=== PATIENT | male | born 1970 | race African-American/Black ===

== ENCOUNTER 2016-04-18 11:22 | Emergency (ER) | payer OTHER ==
--- NOTE | 2016-04-18 12:42 | ED ORDER SUMMARY ---
..... Patient: MARIA LUISA RAIN OrderSheet [facility] VisitID: [id number] [address] [place] [address] 46y, M Registration Date/Time: 04/18/2016 ORDER SHEET Weight: 104.3 kg (stated) Allergies: Sudafed GENERAL ORDERS: Ankle 3 or 4V Right Urgent (12:22 04/18/2016 Shoshana MANCILLA) (Ack 12:29 LTapper) (12:30 RKaruga) Splint (LE) (Right) (Air Splint) (12:39 04/18/2016 Shoshana MANCILLA) (13:27 SRoberts R.N.) MEDICATION ORDERS: Hydrocodone-APAP PO 10/650 mg (NOW, HIGH ALERT MEDICATION) (12:39 04/18/2016 Shoshana MANCILLA) (Ack 13:08 SRoberts R.N.) (Cancelled: Patient [id number] SRoberts R.N.) Toradol IM 60 mg (NOW) (12:39 04/18/2016 Shoshana MANCILLA) (Ack 13:08 SRoberts R.N.) (13:28 SRoberts R.N.) IV FLUIDS: ORDER SHEET NOTES: [Electronically signed by Olesya Sanders R.N. (13:31 04/18/2016)] [Electronically signed by Tasia Castaneda MD (11:55 04/22/2016)] [Electronically locked/signed by Olesya Sanders R.N. (13:31 04/18/2016)]
--- NOTE | 2016-04-18 12:42 | ED NURSING NOTES ---
Clinical Report - Nurses [facility] [address] [place] [address] 04/18/2016 11:23 Patient: MARIA LUISA RAIN TRIAGE Triage time 11:30. Acuity: LEVEL 3. Chief Complaint: INJURY TO RIGHT KNEE and RIGHT ANKLE. Alert. No acute distress. --11:39 Olesya Sanders R.N. 11:35 04/18/16. BP: 165/96. HR: 93. RR: 20. O2 saturation: 100%. Temp: 97 F. Pain level now: 11/21. --11:39 Olesya Sanders R.N. Weight: 104.3 kg stated. Height/Length: 77 inches Per Patient. BMI: 27.3. --11:37 Olesya Sanders R.N. Medications None. --11:33 Olesya Sanders R.N. Medication/allergy information source: the patient. --11:39 Olesya Sanders R.N. Allergies Sudafed.(vomiting) --11:33 Olesya Sanders R.N. History Arrived by private vehicle. Historian: patient. No primary care physician. This occurred (2 days). Mechanism of injury: sustained a twisting injury. Mechanism of injury: fell while running; tripped (Playing basketball, tripped over another player, twisting rt ankle. Also has a bump below the rt knee. 10 pain.). He has had trouble walking. The patient has been limping when trying to walk. ( pain). 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 PAST MEDICAL HX: Hypertension. Tetanus status: up-to-date. ( pncreatitis). SOCIAL HX: Never smoker. No alcohol use or drug use. FALL RISK ASSESSMENT: Fall risk assessment completed. No fall risk identified. NUTRITIONAL RISK ASSESSMENT: The nutritional risk assessment revealed no deficiencies. FUNCTIONAL ASSESSMENT: Functional assessment: no impairments noted. LEARNING NEEDS ASSESSMENT: The learning needs assessment revealed no barriers. SKIN INTEGRITY ASSESSMENT: Skin integrity risk assessment completed. No skin integrity risk identified. --11:39 Olesya Sanders R.N. ADDITIONAL SURGERIES: Ankle rt, hardware. --11:37 Olesya Sanders R.N. Interventions ID band on patient. To room. --11:39 Olesya Sanders R.N. PHYSICAL ASSESSMENT Ambulatory to room. GENERAL / NEURO / PSYCH: Appears in pain and anxious. EXTREMITIES: Limited ROM present. Pain with weight bearing. Right knee: tenderness and swelling. Right ankle: tenderness and swelling. SKIN: Skin is warm and dry. He has an abrasion on the right leg. --11:39 Olesya Sanders R.N. NURSING PROGRESS NOTES Cold pack applied. Extremity elevated. Two patient identifiers checked. Call light placed in reach. Side rails up x 2. Bed placed in lowest position. Brakes of bed on. Patient ready for evaluation. --11:40 Olesya Sanders R.N. 13:13 04/18/2016 Toradol (Ketorolac Tromethamine) IM 60 mg given. Given in the right deltoid. Allergies verified and confirmed 5 rights. --13:28 Olesya Sanders R.N. Large air lower extremity splint applied to right ankle by tech. Distal pulses intact, sensation intact and motor within normal limits. --13:29 Olesya Sanders R.N. 13:29 04/18/16. BP: 150/89. HR: 79. RR: 20. O2 saturation: 100%. Temp: deferred. Pain level now: 07/22. 12:49 04/18/16. BP: 148/78. HR: 73. RR: 18. O2 saturation: 100% on room air. 11:35 04/18/16. BP: 165/96. HR: 93. RR: 20. O2 saturation: 100%. Temp: 97 F. Pain level now: 11/21. --13:30 Olesya Sanders R.N. DISPOSITION / DISCHARGE Condition at departure: improved. No learning barriers present. Discharge instructions provided and reviewed with the patient. Reviewed medication(s) side effects, precautions, dosing and course information. Prescription(s) given to the patient. Activity restrictions (minimal use of injured extremity) reviewed. Patient verbalized understanding. Written instructions provided in [place]. The patient was discharged home. He left the Emergency Department ambulatory and via private vehicle. Patient driving. Medication list reviewed and validated. --13:31 Olesya Sanders R.N. 13:29 04/18/16. BP: 150/89. HR: 79. RR: 20. O2 saturation: 100%. Temp: deferred. Pain level now: 07/22. 12:49 04/18/16. BP: 148/78. HR: 73. RR: 18. O2 saturation: 100% on room air. 11:35 04/18/16. BP: 165/96. HR: 93. RR: 20. O2 saturation: 100%. Temp: 97 F. Pain level now: 11/21. --13:31 Olesya Sanders R.N. Locked/Released at 04/18/2016 13:31 by Olesya Sanders R.N.
--- NOTE | 2016-04-18 12:42 | ED CLINICAL REPORT ---
Clinical Report - Physicians/Mid Levels [facility] [address] [place] [address] 04/18/2016 11:23 Patient: MARIA LUISA RAIN Time Seen: 11:58. Arrived- By private vehicle. Historian- patient. HISTORY OF PRESENT ILLNESS Chief Complaint: ; PAIN and SWELLING IN THE RIGHT ANKLE. Modifying factors- worsened by standing and walking. Not relieved by [id number] analgesics. This started 2 days ago and is still present. Severity is described as being moderate. The quality is noted to be "pain". Symptoms located in the area of the right ankle. The patient has had swelling, but not had redness. He has had difficulty walking. No bladder dysfunction, bowel dysfunction, sensory loss or motor loss. ( Pt states he was playing basketball when the injury occurred.). Patient notes an injury. Mechanism of injury- (twisted). Similar symptoms previously: None. Recent medical care: Not recently seen/assessed. REVIEW OF SYSTEMS No cough, chest pain, difficulty breathing, fever or skin rash. No enlarged lymph nodes, neck pain, back pain, headache or blurred vision. No sore throat, abdominal pain, vomiting, diarrhea or black stools. No difficulty with urination or bloody stools. All systems otherwise negative, except as recorded above. PAST HISTORY Problems: Hypertension. Additional Surgeries: Ankle rt, hardware. Medications: None. Allergies: Sudafed.(vomiting). SOCIAL HISTORY Never smoker. No alcohol use or drug use. ADDITIONAL NOTES The nursing notes have been reviewed. PHYSICAL EXAM Vital Signs: 04/18/2016 11:35 BP: 165/96. HR: 93. RR: 20. O2 saturation: 100%. Temp: 97 F. Pain level now: 8/10. Have been reviewed. Appearance: Alert. Oriented X3. No acute distress. Eyes: Pupils equal, round and reactive to light. ENT: Nose normal. Neck: Normal inspection. CVS: Pulses normal. Strong peripheral pulses. Respiratory: No respiratory distress. Back: ROM normal. Skin: Skin intact. Skin warm and dry. Normal skin color. Normal skin turgor. Extremities: Right ankle: mild tenderness and swelling localized to the lateral ligaments and malleolus. Limited ROM secondary to pain (diminished inversion and eversion). Neurovascular intact distally. No ligamentous laxity present. No joint effusion. No erythema, laceration, abrasion, ecchymosis or puncture wound. No foreign body or deformity. Lower extremities exhibit normal ROM. Extremities otherwise negative. Neuro: Oriented X 3. No motor deficit. No sensory deficit. LABS, X-RAYS, AND EKG Rt Ankle X-ray: No fracture. Normal alignment. No bony lesion, air in the soft tissue or foreign body. Soft tissues normal. Joint spaces normal. Views: 3 view ankle series. Technique: good. The X-rays were independently viewed by me, interpreted by the radiologist and contemporaneously by me and discussed with the radiologist. Prior films were not available for comparison. Pulse Oximetry: 04/18/2016 11:35 O2 saturation: 100%. (FIO2 - room air). Interpretation: normal. PROGRESS AND PROCEDURES Splint Application: Velcro air splint applied to right ankle and lower leg. Splint applied by erick with direct supervision by me and the ED physician. Reassessed extremity following splint application. Neurovascular intact. Course of Care: PT's x-ray showed no new fx. He was fitted for an airsplint, but declined crutches. Pt was given a dose of Toradol, but hydrocodone was canceled, due to pt driving. Patient counseled in person regarding the patient's stable condition, test results, diagnosis and need for follow-up. Concerns were addressed. Old medical records reviewed. Disposition: Discharged. Condition: stable. CLINICAL IMPRESSION Sprain of the talofibular ligament of the right ankle. INSTRUCTIONS Apply ice for 20 minutes three times a day as needed and until better. Don't apply ice directly to skin and don't use while asleep. Elevate affected areas above chest level. Wear air splint as needed and until better. You may walk and bear weight as tolerated. (Your x-ray series shows changes to your bones, consistent with your previous injuries, but no new breaks.). Warnings: SEDATIVE MEDICATION: You were given sedative medication during your visit. Do not drive or operate dangerous machinery for 6 hours. GENERAL WARNINGS: Return or contact your physician immediately if your condition worsens or changes unexpectedly, if not improving as expected, or if other problems arise. Prescription Medications: Hydrocodone/APAP 5mg / 325mg: take 1-2 orally every 6 hours as needed for pain. Dispense twelve (12). No refill. Ibuprofen 800 mg tablets: take 1 tablet orally every 8 hours as needed for pain. Dispense twenty (20). No refill. Follow-up: Follow up with your doctor in two weeks if not better. Understanding of the discharge instructions verbalized by patient. (Electronically signed by Tasia Castaneda MD 04/22/2016 11:55)
--- NOTE | 2016-04-18 12:42 | ED NURSING NOTES ---
Clinical Report - Nurses [facility] [address] [place] [address] 04/18/2016 11:23 Patient: MARIA LUISA RAIN TRIAGE Triage time 11:30. Acuity: LEVEL 3. Chief Complaint: INJURY TO RIGHT KNEE and RIGHT ANKLE. Alert. No acute distress. --11:39 Olesya Sanders R.N. 11:35 04/18/16. BP: 165/96. HR: 93. RR: 20. O2 saturation: 100%. Temp: 97 F. Pain level now: 11/21. --11:39 Olesya Sanders R.N. Weight: 104.3 kg stated. Height/Length: 77 inches Per Patient. BMI: 27.3. --11:37 Olesya Sanders R.N. Medications None. --11:33 Olesya Sanders R.N. Medication/allergy information source: the patient. --11:39 Olesya Sanders R.N. Allergies Sudafed.(vomiting) --11:33 Olesya Sanders R.N. History Arrived by private vehicle. Historian: patient. No primary care physician. This occurred (2 days). Mechanism of injury: sustained a twisting injury. Mechanism of injury: fell while running; tripped (Playing basketball, tripped over another player, twisting rt ankle. Also has a bump below the rt knee. 10 pain.). He has had trouble walking. The patient has been limping when trying to walk. ( pain). 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 PAST MEDICAL HX: Hypertension. Tetanus status: up-to-date. ( pncreatitis). SOCIAL HX: Never smoker. No alcohol use or drug use. FALL RISK ASSESSMENT: Fall risk assessment completed. No fall risk identified. NUTRITIONAL RISK ASSESSMENT: The nutritional risk assessment revealed no deficiencies. FUNCTIONAL ASSESSMENT: Functional assessment: no impairments noted. LEARNING NEEDS ASSESSMENT: The learning needs assessment revealed no barriers. SKIN INTEGRITY ASSESSMENT: Skin integrity risk assessment completed. No skin integrity risk identified. --11:39 Olesya Sanders R.N. ADDITIONAL SURGERIES: Ankle rt, hardware. --11:37 Olesya Sanders R.N. Interventions ID band on patient. To room. --11:39 Olesya Sanders R.N. PHYSICAL ASSESSMENT Ambulatory to room. GENERAL / NEURO / PSYCH: Appears in pain and anxious. EXTREMITIES: Limited ROM present. Pain with weight bearing. Right knee: tenderness and swelling. Right ankle: tenderness and swelling. SKIN: Skin is warm and dry. He has an abrasion on the right leg. --11:39 Olesya Sanders R.N. NURSING PROGRESS NOTES Cold pack applied. Extremity elevated. Two patient identifiers checked. Call light placed in reach. Side rails up x 2. Bed placed in lowest position. Brakes of bed on. Patient ready for evaluation. --11:40 Olesya Sanders R.N. 13:13 04/18/2016 Toradol (Ketorolac Tromethamine) IM 60 mg given. Given in the right deltoid. Allergies verified and confirmed 5 rights. --13:28 Olesya Sanders R.N. Large air lower extremity splint applied to right ankle by tech. Distal pulses intact, sensation intact and motor within normal limits. --13:29 Olesya Sanders R.N. 13:29 04/18/16. BP: 150/89. HR: 79. RR: 20. O2 saturation: 100%. Temp: deferred. Pain level now: 07/22. 12:49 04/18/16. BP: 148/78. HR: 73. RR: 18. O2 saturation: 100% on room air. 11:35 04/18/16. BP: 165/96. HR: 93. RR: 20. O2 saturation: 100%. Temp: 97 F. Pain level now: 11/21. --13:30 Olesya Sanders R.N. DISPOSITION / DISCHARGE Condition at departure: improved. No learning barriers present. Discharge instructions provided and reviewed with the patient. Reviewed medication(s) side effects, precautions, dosing and course information. Prescription(s) given to the patient. Activity restrictions (minimal use of injured extremity) reviewed. Patient verbalized understanding. Written instructions provided in Maltese. The patient was discharged home. He left the Emergency Department ambulatory and via private vehicle. Patient driving. Medication list reviewed and validated. --13:31 Olesya Sanders R.N. 13:29 04/18/16. BP: 150/89. HR: 79. RR: 20. O2 saturation: 100%. Temp: deferred. Pain level now: 07/22. 12:49 04/18/16. BP: 148/78. HR: 73. RR: 18. O2 saturation: 100% on room air. 11:35 04/18/16. BP: 165/96. HR: 93. RR: 20. O2 saturation: 100%. Temp: 97 F. Pain level now: 11/21. --13:31 Olesya Sanders R.N. Locked/Released at 04/18/2016 13:31 by Olesya Sanders R.N.
--- NOTE | 2016-04-18 12:42 | ED ORDER SUMMARY ---
..... Patient: MARIA LUISA RAIN OrderSheet [facility] VisitID: [id number] [address] [place] [address] 46y, M Registration Date/Time: 04/18/2016 ORDER SHEET Weight: 104.3 kg (stated) Allergies: Sudafed GENERAL ORDERS: Ankle 3 or 4V Right Urgent (12:22 04/18/2016 Shoshana MANCILLA) (Ack 12:29 LTapper) (12:30 RKaruga) Splint (LE) (Right) (Air Splint) (12:39 04/18/2016 Shoshana MANCILLA) (13:27 SRoberts R.N.) MEDICATION ORDERS: Hydrocodone-APAP PO 10/650 mg (NOW, HIGH ALERT MEDICATION) (12:39 04/18/2016 Shoshana MANCILLA) (Ack 13:08 SRoberts R.N.) (Cancelled: Patient Yjezzse01:28 SRoberts R.N.) Toradol IM 60 mg (NOW) (12:39 04/18/2016 Shoshana MANCILLA) (Ack 13:08 SRoberts R.N.) (13:28 SRoberts R.N.) IV FLUIDS: ORDER SHEET NOTES: [Electronically signed by Olesya Sanders R.N. (13:31 04/18/2016)] [Electronically signed by Tasia Castaneda MD (11:55 04/22/2016)] [Electronically locked/signed by Olesya Sanders R.N. (13:31 04/18/2016)]
--- NOTE | 2016-04-18 12:52 | DIAGNOSTIC IMAGING REPORT ---
PROCEDURE: XR ANKLE 3 OR 4 VIEWS - RIGHT INDICATION: TRAUMA/INJURY TECHNIQUE: Four views. COMPARISON: None. FINDINGS: No acute fracture or dislocation. Side plate and multiple screws overlie the distal fibula without visible fracture line. Old avulsion fracture of the tip of the fibula and medial malleolus. There are degenerative changes of the tibiotalar joint. Moderate plantar calcaneal spur. Soft tissues are unremarkable pill IMPRESSION: 1. No acute changes 2. Distal right fibula ORIF 3. Old avulsion fracture of the medial malleolus and tip of the fibula 4. Tibiotalar joint degenerative changes
--- NOTE | 2016-04-22 11:55 | ED MAR SUMMARY ---
..... Medication Administration Record [facility] [address] [place] [address] Patient: MARIA LUISA RAIN Visit ID: [id number] 46y, M Weight: 104.3 kg Height/Length: 77 in BMI: 27.3 ALLERGIES: Sudafed Given 13:13 04/18/2016 Olesya Sanders R.N. Medication Administered: TORADOL [IM] (KETOROLAC TROMETHAMINE), Dose: 60 mg IM. Medication Ordered: Toradol IM 60 mg (NOW).
--- NOTE | 2016-04-22 11:55 | ED MED RECONCILIATION SUMMARY ---
Patient: MARIA LUISA RAIN Medication Reconciliation Report [facility] VisitID: [id number] [address] [place] [address] 46y, M Registration Date/Time: 04/18/2016 Weight: 104.3 kg Height/Length: 77 in. BMI: 27.3 ALLERGIES: Sudafed The patient's Home Medications are listed below: NONE. The source(s) of the original Home Medication information: patient The following Medications were given to the patient in the Emergency Department: Toradol [IM] IM 60 mg, administered: 04/18/2016 1:13:00 PM The following Medications were prescribed to the patient: Hydrocodone/APAP 5mg / 325mg: take 1-2 orally every 6 hours as needed for pain. Dispense twelve (12). No refill. -- Tasia Castaneda MD Ibuprofen 800 mg tablets: take 1 tablet orally every 8 hours as needed for pain. Dispense twenty (20). No refill. -- Tasia Castaneda MD
--- NOTE | 2016-04-22 11:55 | ED MED RECONCILIATION SUMMARY ---
Patient: MARIA LUISA RAIN Medication Reconciliation Report [facility] VisitID: [id number] [address] [place] [address] 46y, M Registration Date/Time: 04/18/2016 Weight: 104.3 kg Height/Length: 77 in. BMI: 27.3 ALLERGIES: Sudafed The patient's Home Medications are listed below: NONE. The source(s) of the original Home Medication information: patient The following Medications were given to the patient in the Emergency Department: Toradol [IM] IM 60 mg, administered: 04/18/2016 1:13:00 PM The following Medications were prescribed to the patient: Hydrocodone/APAP 5mg / 325mg: take 1-2 orally every 6 hours as needed for pain. Dispense twelve (12). No refill. -- Tasia Castaneda MD Ibuprofen 800 mg tablets: take 1 tablet orally every 8 hours as needed for pain. Dispense twenty (20). No refill. -- Tasia Castaneda MD
--- NOTE | 2016-04-22 11:55 | ED MAR SUMMARY ---
..... Medication Administration Record [facility] [address] [place] [address] Patient: MARIA LUISA RAIN Visit ID: [id number] 46y, M Weight: 104.3 kg Height/Length: 77 in BMI: 27.3 ALLERGIES: Sudafed Given 13:13 04/18/2016 Olesya Sanders R.N. Medication Administered: TORADOL [IM] (KETOROLAC TROMETHAMINE), Dose: 60 mg IM. Medication Ordered: Toradol IM 60 mg (NOW).
--- NOTE | 2016-04-22 11:55 | ED DISCHARGE INSTRUCTIONS ---
Patient: MARIA LUISA RAIN General Instructions [facility] VisitID: [id number] [place] [address] 46y, M Registration Date/Time: 04/18/2016 Sprain of the talofibular ligament of the right ankle. INSTRUCTIONS Apply ice for 20 minutes three times a day as needed and until better. Don't apply ice directly to skin and don't use while asleep. Elevate affected areas above chest level. Wear air splint as needed and until better. You may walk and bear weight as tolerated. (Your x-ray series shows changes to your bones, consistent with your previous injuries, but no new breaks.). Warnings: SEDATIVE MEDICATION: You were given sedative medication during your visit. Do not drive or operate dangerous machinery for 6 hours. GENERAL WARNINGS: Return or contact your physician immediately if your condition worsens or changes unexpectedly, if not improving as expected, or if other problems arise. Prescription Medications: Hydrocodone/APAP 5mg / 325mg: take 1-2 orally every 6 hours as needed for pain. Dispense twelve (12). No refill. Ibuprofen 800 mg tablets: take 1 tablet orally every 8 hours as needed for pain. Dispense twenty (20). No refill. Follow-up: Follow up with your doctor in two weeks if not better. Understanding of the discharge instructions verbalized by patient. ADDITIONAL INFORMATION Sprain, Ankle,With X-Ray A sprain is an injury to the ligaments or capsule that holds a joint together. There are no broken bones. Most sprains take from four to six weeks to heal. If the ligament is completely torn (severe sprain), it can take several months to recover. Mild to moderate sprains may be treated with an elastic wrap or an in-shoe splint to provide support and prevent re-injury. A mild sprain may not require any additional support. A severe sprain may require surgery to repair. Home care The following guidelines will help you care for your injury at home: Stay off the injured leg as much as possible until you can walk on it without pain. If you have a lot of pain with walking, crutches or a walker may be prescribed. (These can be rented or purchased at many pharmacies and surgical or orthopedic supply stores). Follow your doctor's advice regarding when to begin bearing weight on that leg. Keep your leg elevated to reduce pain and swelling. When sleeping, place a pillow under the injured leg. When sitting, support the injured leg so it is level with your waist. This is very important during the first 48 hours. Apply an ice pack (ice cubes in a plastic bag, wrapped in a towel) over the injured area for 20 minutes every 12 hours the first day. You can place the ice pack directly over the splint/cast. If you were given a boot, open it to apply the ice pack. Continue with ice packs 34 times a day for the next two days, then as needed for the relief of pain and swelling. You may use acetaminophen or ibuprofen to control pain, unless another pain medicine was prescribed. If you have chronic liver or kidney disease or ever had a stomach ulcer or GI bleeding, talk with your doctor before using these medicines. You may return to sports after healing, when you can run without pain. A sprained ankle is at risk for re-injury during the first six weeks. During that time, protect your ankle with an in-shoe splint that prevents tilting of your ankle from side to side. This is very important if you do active work or play sports during that time. Follow-up care Any X-rays you had today dont show any broken bones, breaks, or fractures. Sometimes fractures dont show up on the first X-ray. Bruises and sprains can sometimes hurt as much as a fracture. These injuries can take time to heal completely. If your symptoms dont improve or they get worse, talk with your doctor. You may need a repeat X-ray. When to seek medical care Get prompt medical attention if any of the following occur: The plaster cast or splint gets wet or soft The fiberglass cast or splint gets wet and does not dry for 24 hours Pain or swelling increases, or redness appears Toes become cold, blue, numb or tingly Re-injure your ankle Aircast Traditional splints and casts for the foot and ankle protect the injury by preventing movement at the joints. However, many injuries heal better and faster if the injured joint can be moved, while protected at the same time. This is the reason for using an Aircast. There are two common type of AirCasts: 1) Air-Stirrup ankle splint This is often used to treat ankle sprains. It contains padded air cells in a plastic frame that fits into your shoe. This allows you to walk while preventing the ankle joint from rolling in or out causing re-injury. Ankle sprains can take 4-6 weeks to heal. Persons with severe injuries or over age 60 may require more time to heal. During that time, you are prone to re-injury by suddenly twisting your ankle again while the ligaments are still weak. When treating a sprain, the Air-Stirrup splint should be worn whenever walking for at least four weeks, or as long as you continue to have ankle pain. You should continue to wear it at least 6 weeks whenever running, playing sports or any activity where there is increased risk of re-injury. Talk to your doctor for specific advice about the treatment of your condition. 2) SP-Walker boot This is a short boot that provides support and protection to the foot and ankle while allowing you to walk. It contains padded air cells that provide compression and help circulation. It is used for both foot and ankle injuries - both sprains and minor fractures. Talk to your doctor for specific advice about the treatment of your condition. Air-Stirrup and SP-Walker are trademarks of [employer] For more information about their products, see www.[employer]. You have been given the following additional information: Sprain, Ankle, With X-Ray Aircast Splint And Boot You may walk and bear weight as tolerated. (Electronically signed by Tasia Castaneda MD 04/22/2016 11:55)
[2016-09-26] MEDS ORDERED: HYDROCHLOROTH12.5 MG PO (04:52)
[2016-09-26] MEDS ORDERED: LISINOPRIL10 MG PO (06:04)
[2016-09-26] MEDS ORDERED: FAMOTIDINE20 MG PO (11:53)
[2016-09-26] MEDS ORDERED: PANTOPRAZOLE SO40 MG PO (11:53)
[2016-09-26] MEDS ORDERED: NORVASC5 MG PO (17:11)
[2016-09-26] MEDS ORDERED: TRAMADOL HCL50 MG PO (18:00)
== END 2016-04-18 13:31 | disposition home or self-care (01) ==
LOC: ED SRH 11:22
DX: S93.491A Sprain of other ligament of right ankle, initial encounter (principal); W01.0XXA Fall on same level from slipping, tripping and stumbling without subsequent striking against object, initial encounter; Y93.67 Activity, basketball; Y92.89 Other specified places as the place of occurrence of the external cause; Y99.9 Unspecified external cause status; I10 Essential (primary) hypertension; Z88.8 Allergy status to other drugs, medicaments and biological substances

== ENCOUNTER 2016-07-16 06:28 | Emergency (ER) | payer OTHER ==
--- NOTE | 2016-07-16 09:49 | ED CLINICAL REPORT ---
Clinical Report - Physicians/Mid Levels [facility] [address] [place] [address] 07/16/2016 6:29 Patient: MARIA LUISA RAIN Time Seen: 07:17. Arrived- By private vehicle. Historian- patient. HISTORY OF PRESENT ILLNESS Chief Complaint: ABDOMINAL PAIN. At its maximum, severity described as 9 / 10. When seen in the E.D., severity described as 8 / 10. Modifying factors- worsened by movement. It is described as located in the right upper quadrant and in the upper abdomen. This started 3 AM and is still present. It was abrupt in onset. The patient has had nausea. He has had vomiting (2 - 3 times). Similar symptoms previously: Several times. ( Pancreatitis). REVIEW OF SYSTEMS No constipation, black stools or stools or hematemesis. No difficulty with urination or urination, pain with urination, urinary frequency or fever. No eye irritation, ear pain, sore throat, chest pain or cough. No difficulty breathing, bloody stools, constipation, diarrhea or vomiting. No back pain. Last bowel movement: yesterday. The patient has had abdominal pain and nausea. PAST HISTORY PCP: None Ops: hand ankle Hosp: abdominal pain, GI bleeding 3-4 years ago. SOCIAL HISTORY No alcohol use. He lives with spouse. ADDITIONAL NOTES The nursing notes have been reviewed. PHYSICAL EXAM Vital Signs: 07/16/2016 09:59 BP: 142/100. HR: 78. RR: 20. O2 saturation: 98%. Temp: 98.4 F. 07/16/2016 08:45 BP: 160/118. HR: 76. RR: 16. O2 saturation: 97%. 07/16/2016 07:45 BP: 148/100. HR: 74. RR: 18. O2 saturation: 97%. 07/16/2016 07:15 BP: 166/116. HR: 79. RR: 18. O2 saturation: 99%. 07/16/2016 06:37 BP: 151/105. HR: 90. RR: 15. O2 saturation: 99%. Temp: 98.6 F. Pain level now: 910. Appearance: Alert. Patient in mild distress. Eyes: No scleral icterus. ENT: Pharynx normal. CVS: Heart sounds normal. Respiratory: No respiratory distress. Breath sounds normal. Abdomen: Moderate tenderness in the upper abdomen. Bowel sounds normal. No rebound tenderness or guarding. (No hernias). Back: No CVA tenderness. : Normal genitalia. Testes descended. Skin: Skin warm. Normal skin color. Extremities: Extremities exhibit normal ROM. No lower extremity edema. LABS, X-RAYS, AND EKG Laboratory Tests: UA-Culture if indicated: (JOLIE: 07/16/2016 09:10) ( [facility] [place] 07/16[place] 12:05) Final results Test Result Flag Units (Reference) URINE COLOR YELLOW URINE APPEARANCE CLEAR URINE GLUCOSE NEGATIVE (NEGATIVE) URINE BILIRUBIN NEGATIVE (NEGATIVE) URINE KETONE NEGATIVE (NEGATIVE) URINE SPECIFIC GRAVITY 1.015 (1.010-1.030) URINE PH 7.0 (5.0-8.0) URINE PROTEIN NEGATIVE (NEGATIVE) URINE UROBILINOGEN 0.2 EU/dL (0.2-1.0) URINE NITRITE NEGATIVE (NEGATIVE) URINE BLOOD NEGATIVE (NEGATIVE) URINE LEUK ESTERASE NEGATIVE (NEGATIVE) URINE RBC NONE SEEN rbc/hpf (0-1) URINE WBC NONE SEEN wbc/hpf (0-1) URINE EPITHELIAL CELLS NONE SEEN EPI/hpf (0-5) URINE BACTERIA NONE SEEN (NONE SEEN) URINE COMMENT CULT NOT INDICATED URINE CULTURES ARE SET-UP BASED ON THE FOLLOWING CRITERIA:POSITIVE NITRITEPOSITIVE LEUKOCYTE ESTERASEGREATER THAN 10 WHITE BLOOD CELLSMODERATE (2+) OR GREATER BACTERIA CBC w Diff: (JOLIE: 07/16/2016 06:40) ( [facility] [place] 07/16/2016 06:52) Final results Test Result Flag Units (Reference) WHITE BLOOD COUNT 8.6 K/uL (4.5-11.5) RED BLOOD COUNT 4.63 M/uL (4.50-5.90) HEMOGLOBIN 13.1 L gm/dL (13.5-17.5) HEMATOCRIT 39.4 L % (41.0-53.0) MEAN CELL VOLUME 85 fL (80-100) MEAN CORPUSCULAR HGB 28 pg (26-34) MEAN CORPUSCULAR HGB CONC 33 g/dL (31-37) RED CELL DISTRIBUTION WIDTH 14.2 % (11.6-14.8) PLATELET COUNT 227 K/uL (150-400) NEUTROPHIL % 56.5 % (50-75) LYMPH % 33.9 % (25-40) MONO % 6.3 % (3-14) EOSINOPHIL % 2.9 % (0-4) BASOPHIL % 0.4 % (0-2) CMP: (JOLIE: 07/16/2016 06:40) ( MsgRcvd 07/16/2016 07:26) Final results Test Result Flag Units (Reference) GLUCOSE 93 mg/dL (70-110) BUN 18 mg/dL (7-18) CREATININE 1.2 mg/dL (0.6-1.3) Estimated GFR >60 mL/min Estimated GFR- >60 mL/min Note: Persistent reduction over 3 months in eGFR<60 mL/min/1.73 m2 defines CKD. Patients with eGFR values>=60 mL/min/1.73 m2 may also have CKD if evidence ofpersistent proteinuria. Additional information may be foundat www.kidney.org. SODIUM 141 mmol/L (136-145) POTASSIUM 3.8 mmol/L (3.5-5.1) CHLORIDE 105 mmol/L (98-107) CARBON DIOXIDE 26 mmol/L (21-32) CALCIUM 8.5 mg/dL (8.5-10.1) TOTAL PROTEIN 7.1 g/dL (6.4-8.2) ALBUMIN 3.6 g/dL (3.3-5.0) BILIRUBIN, TOTAL 0.3 mg/dL (0.0-1.0) ALKALINE PHOSPHATASE 85 U/L (46-116) AST (SGOT) 43 H U/L (15-37) ALT (SGPT) 65 U/L (12-78) LIPASE 463 H U/L (73-393) AMYLASE 112 U/L (25-115) . PROGRESS AND PROCEDURES Course of Care: 09:36 07/16/16. Re exam remains benign The patient would like to try home care. This is not unreasonable. The downside risk is minimal except that he may need to return to the ED and be hospitalized. He understands this. 11:10 07/17/16. I spoke with Dr Spain to facilitate outpatient follow up. I see that the patient was not given Dr Spain's phone number in the discharge instructions. I will call the charge nurse on duty and make sure that he is given the telephone number. Yeimy RN will call him today. CLINICAL IMPRESSION Abdominal pain. Acute pancreatitis. INSTRUCTIONS Do not work for five days. (YOU HAVE MILD PANCREATITIS, YOU MAY NEED TO BE HOSPITALIZED BUT YOU CAN TRY A TRIAL OF HOME CARE CLEAR LIQUIDS ONLY FOR 3 DAYS. IMMEDIATE RECHECK FOR UNCONTROLLED PAIN. ESTABLISH PRIMARY CARE. CALL FOR APPOINTMENT TODAY. I SPOKE WITH DR SPAIN HE ASKED THAT YOU CALL TODAY TO START THE PROCESS.). Prescription Medications: Oxycodone/APAP 5 mg/325 mg: take 1-2 tablets orally every 4 hours as needed for pain. Dispense thirty (30). No refill. (Electronically signed by Germán Chung MD 07/17/2016 11:15)
--- NOTE | 2016-07-16 09:50 | ED NURSING NOTES ---
Clinical Report - Nurses [facility] [address] [place] [address] 07/16/2016 6:29 Patient: MARIA LUISA RAIN TRIAGE Triage time 06:37. Acuity: LEVEL 3. Chief Complaint: ABDOMINAL PAIN, NAUSEA and VOMITING. 06:42. Alert. SEPSIS SCREEN: Sepsis Screen. Negative (no infection suspected/documented). --06:42 Jagedep Dominguez R.N. 06:37 07/16/16. BP: 151/105. HR: 90. RR: 15. O2 saturation: 99%. Temp: 98.6 F. Pain level now: 12/22. --06:42 Jagdeep Dominguez R.N. Weight: 108.8 kg stated. Height/Length: 77 inches Per Patient. BMI: 28.5. --06:38 Jagdeep Dominguez R.N. Medications None. --06:38 Jagdeep Dominguez R.N. Medication/allergy information source: the patient. --06:42 Jagdeep Dominguez R.N. Allergies Sudafed.(vomiting) --06:38 Jagdeep Dominguez R.N. History Arrived by private vehicle. Historian: patient. Unaccompanied. Primary physician (None). Onset. (about 0300). ( Patient reports waking up coughing with a burning sensation in his ABD, that he vomited blood and bile). Treatment BR[employer] MACHINE: (Pepto-Bismol). PAST MEDICAL HX: Immunizations: up-to-date. SOCIAL HX: Never smoker. No alcohol use or drug use. No recent travel. No infectious disease exposure. ABUSE ASSESSMENT: No report of abuse. FALL RISK ASSESSMENT: Fall risk assessment completed. No fall risk identified. NUTRITIONAL RISK ASSESSMENT: The nutritional risk assessment revealed no deficiencies. FUNCTIONAL ASSESSMENT: Functional assessment: no impairments noted. LEARNING NEEDS ASSESSMENT: The learning needs assessment revealed no barriers. SKIN INTEGRITY ASSESSMENT: Skin integrity risk assessment completed. No skin integrity risk identified. --06:42 Jagdeep Dominguez R.N. PROBLEMS: Gastroesophageal Reflux Disease. Hypertension. --06:39 Jagdeep Dominguez R.N. Pancreatitis. --06:41 Jagdeep Dominguez R.N. ADDITIONAL SURGERIES: Ankle rt, hardware. Right hand surgery. --06:39 Jagdeep Dominguez R.N. Interventions ID band on patient. To treatment room. --06:42 Jagdeep Dominguez R.N. PHYSICAL ASSESSMENT 06:43. Ambulatory to room. Patient gowned. GENERAL / NEURO / PSYCH: Alert. Oriented X 4. HEENT: Mucous membranes are pink. RESPIRATORY: Respirations not labored. SKIN: Skin is warm and dry. --06:43 Jagdeep Dominguez R.N. NURSING PROGRESS NOTES 06:40. Two patient identifiers checked. Call light placed in reach. Bed placed in lowest position. Brakes of bed on. Patient ready for evaluation- chart flagged. --06:42 Jagdeep Dominguez R.N. 06:43 07/16/2016 Site #1 started via IV in the left antecubital space with an 20g angiocath, with aseptic technique and good blood return; one attempt. Blood drawn: rainbow set. Labeled in the presence of the patient and sent to the lab. Saline lock flushed with 10 mL saline (by Brii YOO). --06:43 Jagdeep Dominguez R.N. 06:46 07/16/2016 Zofran (Ondansetron HCl) IVP 4 mg given over 2 minute(s) via site #1. Allergies verified and confirmed 5 rights. IV patency established. IV site checked: no pain, redness, or swelling. IV flushed thoroughly pre- and post-medication administration. --06:48 Jagdeep Dominguez R.N. 07:19. Care transferred and report given (Armin YOO). --07:19 Jagdeep Dominguez R.N. 07:25 07/16/2016 Started bag #1 1000 mL IV Fluids IV NS (Saline); at 1000 mL/hr over 1 hour(s) via site #1 via IV pump. Allergies verified and confirmed 5 rights. IV patency established. IV site checked: no pain, redness, or swelling. IV flushed thoroughly pre- and post-medication administration. --07:30 Ethan Sterling R.N. 07:26 07/16/2016 Zofran (Ondansetron HCl) IVP 4 mg given over 2 minute(s) via site #1. Allergies verified and confirmed 5 rights. IV patency established. IV site checked: no pain, redness, or swelling. IV flushed thoroughly pre- and post-medication administration. --07:31 Ethan Sterling R.N. 07:30 07/16/2016 Dilaudid (HYDROmorphone HCl PF) IVP 1 mg given over 2 minute(s) via site #1. Allergies verified, confirmed 5 rights and sedative warning given to the patient. IV patency established. IV site checked: no pain, redness, or swelling. IV flushed thoroughly pre- and post-medication administration. --07:30 Ethan Sterling R.N. Urine collected. --09:16 Ethan Sterling R.N. 09:46 07/16/2016 Dilaudid (HYDROmorphone HCl PF) IVP 1 mg given over 2 minute(s) via site #1. Allergies verified, confirmed 5 rights and sedative warning given to the patient. IV patency established. IV site checked: no pain, redness, or swelling. IV flushed thoroughly pre- and post-medication administration. --09:46 Ethan Sterling R.N. DISPOSITION / DISCHARGE 09:57 07/16/2016 Site #1 removed upon discharge. Catheter intact. Pressure dressing applied. --10:02 Ethan Sterling R.N. 09:58 07/16/2016 IV Fluids IV NS Discontinued: bag #1 infused upon discharge. Total amount infused: 1000 mL. IV patency established. IV site checked: no pain, redness, or swelling. IV flushed thoroughly. --10:03 Ethan Sterling R.N. Condition at departure: improved. No learning barriers present. Discharge instructions provided and reviewed with the patient. Reviewed warnings. Reviewed medication(s). Treatments reviewed. Reviewed referrals. Work note given. Patient verbalized understanding. Written instructions provided in Mexican. The patient was discharged home. He left the Emergency Department ambulatory and via ([employer]). --10:03 Ethan Sterling R.N. 09:59 07/16/16. BP: 142/100. HR: 78. RR: 20. O2 saturation: 98%. Temp: 98.4 F. Pain level now 06/21. --10:03 Ethan Sterling R.N. Departure time: 10:Jul 16 2016. --10:06 Ethan Sterling R.N. Locked/Released at 07/16/2016 19:19 by Ethan Sterling R.N.
--- NOTE | 2016-07-16 09:50 | ED ORDER SUMMARY ---
..... Patient: MARIA LUISA RAIN OrderSheet [facility] VisitID: [id number] [place] [address] 46y, M Registration Date/Time: 07/16/2016 ORDER SHEET Weight: 108.8 kg (stated) Allergies: Sudafed GENERAL ORDERS: CBC w Diff Urgent (06:47 07/16/2016 JQuivey R.N. per protocol) (Ack 6:55 CHategekimana) (7:16 JQuivey R.N.) CMP Urgent (06:47 07/16/2016 JQuivey R.N. per protocol) (Ack 6:55 CHategekimana) (7:16 JQuivey R.N.) Amylase Urgent (06:07/16/2016 JQuivey R.N. per protocol) (Ack 6:55 CHategekimana) (7:16 JQuivey R.N.) Lipase Urgent (06:47 07/16/2016 JQuivey R.N. per protocol) (Ack 6:55 CHategekimana) (7:16 JQuivey R.N.) UA-Culture if indicated Urgent (07:07/16/2016 Michael MANCILLA) (Ack 7:21 Elias) (10:03 LWhalen R.N.) MEDICATION ORDERS: IV FLUIDS: Zofran IV 4 mg (NOW) (06:47 07/16/2016 JQuivey R.N. per protocol) (6:48 JQuivey R.N.) IV Saline Lock (06:47 07/16/2016 JQuivey R.N. per protocol) (6:48 JQuivey R.N.) IV NS : initial bolus none -, then 500 mL/hr for 2h (NOW); Urgent (07:07/16/2016 Michael MANCILLA) (7:30 LWhalen R.N.) Dilaudid IV 1 mg (NOW) (07:22 07/16/2016 Michael MANCILLA) (7:30 LWhalen R.N.) Zofran IV 4 mg (NOW) (07:23 07/16/2016 Michael MANCILLA) (7:31 Rosenda Carlos) ORDER SHEET NOTES: [Electronically signed by Ethan Sterling R.N. (19:19 07/16/2016)] [Electronically signed by Germán Chung MD (11:15 07/17/2016)] [Electronically locked/signed by Ethan Sterling R.N. (19:19 07/16/2016)]
--- NOTE | 2016-07-16 09:50 | ED NURSING NOTES ---
Clinical Report - [facility] [address] [place] [address] 07/16/2016 6:29 Patient: MARIA LUISA RAIN TRIAGE Triage time 06:37. Acuity: LEVEL 3. Chief Complaint: ABDOMINAL PAIN, NAUSEA and VOMITING. 06:42. Alert. SEPSIS SCREEN: Sepsis Screen. Negative (no infection suspected/documented). --06:42 Jagdeep Dominguez R.N. 06:37 07/16/16. BP: 151/105. HR: 90. RR: 15. O2 saturation: 99%. Temp: 98.6 F. Pain level now: 12/22. --06:42 Jagdeep Dominguez R.N. Weight: 108.8 kg stated. Height/Length: 77 inches Per Patient. BMI: 28.5. --06:38 Jagdeep Dominguez R.N. Medications None. --06:38 Jagdeep Dominguez R.N. Medication/allergy information source: the patient. --06:42 Jagdeep Dominguez R.N. Allergies Sudafed.(vomiting) --06:38 Jagdeep Dominguez R.N. History Arrived by private vehicle. Historian: patient. Unaccompanied. Primary physician (None). Onset. (about 0300). ( Patient reports waking up coughing with a burning sensation in his ABD, that he vomited blood and bile). Treatment GAME AGENT: (Pepto-Bismol). PAST MEDICAL HX: Immunizations: up-to-date. SOCIAL HX: Never smoker. No alcohol use or drug use. No recent travel. No infectious disease exposure. ABUSE ASSESSMENT: No report of abuse. FALL RISK ASSESSMENT: Fall risk assessment completed. No fall risk identified. NUTRITIONAL RISK ASSESSMENT: The nutritional risk assessment revealed no deficiencies. FUNCTIONAL ASSESSMENT: Functional assessment: no impairments noted. LEARNING NEEDS ASSESSMENT: The learning needs assessment revealed no barriers. SKIN INTEGRITY ASSESSMENT: Skin integrity risk assessment completed. No skin integrity risk identified. --06:42 Jagdeep Dominguez R.N. PROBLEMS: Gastroesophageal Reflux Disease. Hypertension. --06:39 Jagdeep Dominguez R.N. Pancreatitis. --06:41 Jagdeep Dominguez R.N. ADDITIONAL SURGERIES: Ankle rt, hardware. Right hand surgery. --06:39 Jagdeep Dominguez R.N. Interventions ID band on patient. To treatment room. --06:42 Jagdeep Dominguez R.N. PHYSICAL ASSESSMENT 06:43. Ambulatory to room. Patient gowned. GENERAL / NEURO / PSYCH: Alert. Oriented X 4. HEENT: Mucous membranes are pink. RESPIRATORY: Respirations not labored. SKIN: Skin is warm and dry. --06:43 Jagdeep Dominguez R.N. NURSING PROGRESS NOTES 06:40. Two patient identifiers checked. Call light placed in reach. Bed placed in lowest position. Brakes of bed on. Patient ready for evaluation- chart flagged. --06:42 Jagdeep Dominguez R.N. 06:43 07/16/2016 Site #1 started via IV in the left antecubital space with an 20g angiocath, with aseptic technique and good blood return; one attempt. Blood drawn: rainbow set. Labeled in the presence of the patient and sent to the lab. Saline lock flushed with 10 mL saline (by Brii YOO). --06:43 Jagdeep Dominguez R.N. 06:46 07/16/2016 Zofran (Ondansetron HCl) IVP 4 mg given over 2 minute(s) via site #1. Allergies verified and confirmed 5 rights. IV patency established. IV site checked: no pain, redness, or swelling. IV flushed thoroughly pre- and post-medication administration. --06:48 Jagdeep Dominguez R.N. 07:19. Care transferred and report given (Armin YOO). --07:19 Jagdeep Dominguez R.N. 07:25 07/16/2016 Started bag #1 1000 mL IV Fluids IV NS (Saline); at 1000 mL/hr over 1 hour(s) via site #1 via IV pump. Allergies verified and confirmed 5 rights. IV patency established. IV site checked: no pain, redness, or swelling. IV flushed thoroughly pre- and post-medication administration. --07:30 Ethan Sterling R.N. 07:26 07/16/2016 Zofran (Ondansetron HCl) IVP 4 mg given over 2 minute(s) via site #1. Allergies verified and confirmed 5 rights. IV patency established. IV site checked: no pain, redness, or swelling. IV flushed thoroughly pre- and post-medication administration. --07:31 Ethan Sterling R.N. 07:30 07/16/2016 Dilaudid (HYDROmorphone HCl PF) IVP 1 mg given over 2 minute(s) via site #1. Allergies verified, confirmed 5 rights and sedative warning given to the patient. IV patency established. IV site checked: no pain, redness, or swelling. IV flushed thoroughly pre- and post-medication administration. --07:30 Ethan Sterling R.N. Urine collected. --09:16 Ethan Sterling R.N. 09:46 07/16/2016 Dilaudid (HYDROmorphone HCl PF) IVP 1 mg given over 2 minute(s) via site #1. Allergies verified, confirmed 5 rights and sedative warning given to the patient. IV patency established. IV site checked: no pain, redness, or swelling. IV flushed thoroughly pre- and post-medication administration. --09:46 Ethan Sterling R.N. DISPOSITION / DISCHARGE 09:57 07/16/2016 Site #1 removed upon discharge. Catheter intact. Pressure dressing applied. --10:02 Ethan Sterling R.N. 09:58 07/16/2016 IV Fluids IV NS Discontinued: bag #1 infused upon discharge. Total amount infused: 1000 mL. IV patency established. IV site checked: no pain, redness, or swelling. IV flushed thoroughly. --10:03 Ethan Sterling R.N. Condition at departure: improved. No learning barriers present. Discharge instructions provided and reviewed with the patient. Reviewed warnings. Reviewed medication(s). Treatments reviewed. Reviewed referrals. Work note given. Patient verbalized understanding. Written instructions provided in Swedish. The patient was discharged home. He left the Emergency Department ambulatory and via (Wylio). --10:03 Ethan Sterling R.N. 09:59 07/16/16. BP: 142/100. HR: 78. RR: 20. O2 saturation: 98%. Temp: 98.4 F. Pain level now 06/21. --10:03 Ethan Sterling R.N. Departure time: 10:Jul 16 2016. --10:06 Ethan Sterling R.N. Locked/Released at 07/16/2016 19:19 by Ethan Sterling R.N.
--- NOTE | 2016-07-16 09:50 | ED ORDER SUMMARY ---
..... Patient: MARIA LUISA RAIN OrderSheet [facility] VisitID: [id number] [place] [address] 46y, M Registration Date/Time: 07/16/2016 ORDER SHEET Weight: 108.8 kg (stated) Allergies: Sudafed GENERAL ORDERS: CBC w Diff Urgent (06:47 07/16/2016 JQuivey R.N. per protocol) (Ack 6:55 CHategekimana) (7:16 JQuivey R.N.) CMP Urgent (06:47 07/16/2016 JQuivey R.N. per protocol) (Ack 6:55 CHategekimana) (7:16 JQuivey R.N.) Amylase Urgent (06:07/16/2016 JQuivey R.N. per protocol) (Ack 6:55 CHategekimana) (7:16 JQuivey R.N.) Lipase Urgent (06:47 07/16/2016 JQuivey R.N. per protocol) (Ack 6:55 CHategekimana) (7:16 JQuivey R.N.) UA-Culture if indicated Urgent (07:07/16/2016 Michael MANCILLA) (Ack 7:21 Elias) (10:03 LWhalen R.N.) MEDICATION ORDERS: IV FLUIDS: Zofran IV 4 mg (NOW) (06:47 07/16/2016 JQuivey R.N. per protocol) (6:48 JQuivey R.N.) IV Saline Lock (06:47 07/16/2016 JQuivey R.N. per protocol) (6:48 JQuivey R.N.) IV NS : initial bolus none -, then 500 mL/hr for 2h (NOW); Urgent (07:07/16/2016 Michael MANCILLA) (7:30 LWhalen R.N.) Dilaudid IV 1 mg (NOW) (07:22 07/16/2016 Michael MANCILLA) (7:30 LWhalen R.N.) Zofran IV 4 mg (NOW) (07:23 07/16/2016 Michael MANCILLA) (7:31 Rosenda Carlos) ORDER SHEET NOTES: [Electronically signed by Ethan Sterling R.N. (19:19 07/16/2016)] [Electronically signed by Germán Chung MD (11:15 07/17/2016)] [Electronically locked/signed by Ethan Sterling R.N. (19:19 07/16/2016)]
--- NOTE | 2016-07-17 11:16 | ED DISCHARGE INSTRUCTIONS ---
Patient: MARIA LUISA RAIN General Instructions [facility] VisitID: [id number] [place] [address] 46y, M Registration Date/Time: 07/16/2016 Abdominal pain. Acute pancreatitis. INSTRUCTIONS Do not work for five days. (YOU HAVE MILD PANCREATITIS, YOU MAY NEED TO BE HOSPITALIZED BUT YOU CAN TRY A TRIAL OF HOME CARE CLEAR LIQUIDS ONLY FOR 3 DAYS. IMMEDIATE RECHECK FOR UNCONTROLLED PAIN. ESTABLISH PRIMARY CARE. CALL FOR APPOINTMENT TODAY. I SPOKE WITH DR MILES HE ASKED THAT YOU CALL TODAY TO START THE PROCESS.). Prescription Medications: Oxycodone/APAP 5 mg/325 mg: take 1-2 tablets orally every 4 hours as needed for pain. Dispense thirty (30). No refill. ADDITIONAL INFORMATION Pancreatitis The pancreas is an organ in the left upper abdomen that secretes digestive juices into the stomach. Pancreatitis is an inflammation of the pancreas. This may occur for various causes including heavy alcohol use, gall stone blockage of the outflow duct from the pancreas, certain medicines and viral illness. Sometimes the cause of pancreatitis cannot be found. Moderate to severe illness requires being treated in the hospital. Milder attacks of pancreatitis can be treated at home. Home Care: 1) Absolutely NO ALCOHOL. 2) Rest in bed or sit up in a chair until you feel better. 3) Eat small more frequent meals rather than a few large meals each day. 4) Follow a high protein, high carbohydrate, low fat diet. 5) If you were given medicine for pain or vomiting, take it as prescribed. Follow Up with your doctor or as directed by our staff for further evaluation. Get Prompt Medical Attention if any of the following occur: -- Continued or worsening pain in the abdomen -- Repeated vomiting: unable to keep down liquids -- Dizziness, weakness or fainting -- Vomiting blood or blood in the stool (black or red color) -- Fever over 100.4 F (38.0 C) -- Severe muscle cramps or seizure -- Trouble breathing or fast breathing (over 25 breaths/minute) -- Jaundice (yellow color of the skin or eyes) Oxycodone Hydrochloride, Acetaminophen Oral tablet What is this medicine? ACETAMINOPHEN; OXYCODONE (a set a MIKEY padmaja fen; ox i KOE done) is a pain reliever. It is used to treat mild to moderate pain. How should I use this medicine? Take this medicine by mouth with a full glass of water. Follow the directions on the prescription label. Take your medicine at regular intervals. Do not take your medicine more often than directed. Talk to your merchandise marker regarding the use of this medicine in children. Special care may be needed. Patients over 65 years old may have a stronger reaction and need a smaller dose. What side effects may I notice from receiving this medicine? Side effects that you should report to your doctor or health farm or ranch animal caretaker as soon as possible: allergic reactions like skin rash, itching or hives, swelling of the face, lips, or tongue breathing difficulties, wheezing confusion light headedness or fainting spells severe stomach pain yellowing of the skin or the whites of the eyes Side effects that usually do not require medical attention (report to your doctor or health farm or ranch animal caretaker if they continue or are bothersome): dizziness drowsiness nausea vomiting What may interact with this medicine? alcohol antihistamines barbiturates like amobarbital, butalbital, butabarbital, methohexital, pentobarbital, phenobarbital, thiopental, and secobarbital benztropine drugs for bladder problems like solifenacin, trospium, oxybutynin, tolterodine, hyoscyamine, and methscopolamine drugs for breathing problems like ipratropium and tiotropium drugs for certain stomach or intestine problems like propantheline, homatropine methylbromide, glycopyrrolate, atropine, belladonna, and dicyclomine general anesthetics like etomidate, ketamine, nitrous oxide, propofol, desflurane, enflurane, halothane, isoflurane, and sevoflurane medicines for depression, anxiety, or psychotic disturbances medicines for sleep muscle relaxants naltrexone narcotic medicines (opiates) for pain phenothiazines like perphenazine, thioridazine, chlorpromazine, mesoridazine, fluphenazine, prochlorperazine, promazine, and trifluoperazine scopolamine tramadol trihexyphenidyl What if I miss a dose? If you miss a dose, take it as soon as you can. If it is almost time for your next dose, take only that dose. Do not take double or extra doses. Where should I keep my medicine? Keep out of the reach of children. This medicine can be abused. Keep your medicine in a safe place to protect it from theft. Do not share this medicine with anyone. Selling or giving away this medicine is dangerous and against the law. Store at room temperature between 20 and 25 degrees C (68 and 77 degrees F). Keep container tightly closed. Protect from light. This medicine may cause accidental overdose and if it is taken by other adults, children, or pets. Flush any unused medicine down the toilet to reduce the chance of harm. Do not use the medicine after the expiration date. What should I tell my health care provider before I take this medicine? They need to know if you have any of these conditions: brain tumor Crohn's disease, inflammatory bowel disease, or ulcerative colitis drink more than 3 alcohol containing drinks per day drug abuse or addiction head injury heart or circulation problems kidney disease or problems going to the bathroom liver disease lung disease, asthma, or breathing problems an unusual or allergic reaction to acetaminophen, oxycodone, other opioid analgesics, other medicines, foods, dyes, or preservatives or trying to get breast-feeding What should I watch for while using this medicine? Tell your doctor or health farm or ranch animal caretaker if your pain does not go away, if it gets worse, or if you have new or a different type of pain. You may develop tolerance to the medicine. Tolerance means that you will need a higher dose of the medication for pain relief. Tolerance is normal and is expected if you take this medicine for a long time. Do not suddenly stop taking your medicine because you may develop a severe reaction. Your body becomes used to the medicine. This does NOT mean you are addicted. Addiction is a behavior related to getting and using a drug for a non-medical reason. If you have pain, you have a medical reason to take pain medicine. Your doctor will tell you how much medicine to take. If your doctor wants you to stop the medicine, the dose will be slowly lowered over time to avoid any side effects. You may get drowsy or dizzy. Do not drive, use machinery, or do anything that needs mental alertness until you know how this medicine affects you. Do not stand or sit up quickly, especially if you are an older patient. This reduces the risk of dizzy or fainting spells. Alcohol may interfere with the effect of this medicine. Avoid alcoholic drinks. There are different types of narcotic medicines (opiates) for pain. If you take more than one type at the same time, you may have more side effects. Give your health care provider a list of all medicines you use. Your doctor will tell you how much medicine to take. Do not take more medicine than directed. Call emergency for help if you have problems breathing. The medicine will cause constipation. Try to have a bowel movement at least every 2 to 3 days. If you do not have a bowel movement for 3 days, call your doctor or health farm or ranch animal caretaker. Do not take Tylenol (acetaminophen) or medicines that have acetaminophen with this medicine. Too much acetaminophen can be very dangerous. Many nonprescription medicines contain acetaminophen. Always read the labels carefully to avoid taking more acetaminophen. You have been given the following additional information: Pancreatitis Oxycodone Hydrochloride, Acetaminophen Oral tablet Do not work for five days. (Electronically signed by Germán Chung MD 07/17/2016 11:15)
--- NOTE | 2016-07-17 11:16 | ED MAR SUMMARY ---
..... Medication Administration Record [facility] [address] [place] [address] Patient: MARIA LUISA RAIN Visit ID: [id number] 46y, M Weight: 108.8 kg Height/Length: 77 in BMI: 28.5 ALLERGIES: Sudafed Given 06:46 07/16/2016 Jagdeep Dominguez R.N. Medication Administered: ZOFRAN [IVP] (ONDANSETRON HCL), Dose: 4 mg IVP over 2 minute(s), Site: #1 left AC. Medication Ordered: Zofran IV 4 mg (NOW). Start 07:25 07/16/2016 Ethan Sterling R.N., Stop 09:58 07/16/2016 Ethan Sterling R.N. Medication Administered: IV NS (SALINE), Dose: IV Fluids over 1 hour(s), Rate: 1000 mL/hr, Dispensed: 1000 mL bag, Site: #1 left AC. Medication Ordered: IV NS : initial bolus none -, then 500 mL/hr for 2h (NOW); Urgent. Given 07:26 07/16/2016 Ethan Sterling R.N. Medication Administered: ZOFRAN [IVP] (ONDANSETRON HCL), Dose: 4 mg IVP over 2 minute(s), Site: #1 left AC. Medication Ordered: Zofran IV 4 mg (NOW). Given 07:30 07/16/2016 Ethan Sterling R.N. Medication Administered: DILAUDID [IVP] (HYDROMORPHONE HCL PF), Dose: 1 mg IVP over 2 minute(s), Site: #1 left AC. Medication Ordered: Dilaudid IV 1 mg (NOW). Given 09:46 07/16/2016 Ethan Sterling R.N. Medication Administered: DILAUDID [IVP] (HYDROMORPHONE HCL PF), Dose: 1 mg IVP over 2 minute(s), Site: #1 left AC. Medication Ordered: Dilaudid IV 1 mg (NOW).
--- NOTE | 2016-07-17 11:16 | ED MED RECONCILIATION SUMMARY ---
Patient: MARIA LUISA RAIN Medication Reconciliation Report [facility] VisitID: [id number] [address] [place] [address] 46y, M Registration Date/Time: 07/16/2016 Weight: 108.8 kg Height/Length: 77 in. BMI: 28.5 ALLERGIES: Sudafed The patient's Home Medications are listed below: NONE. The source(s) of the original Home Medication information: patient The following Medications were given to the patient in the Emergency Department: Zofran [IVP] IVP 4 mg, administered: 07/16/2016 6:46:00 AM IV NS IV Fluids bolus 0, then 1000 mL/hr, administered: 07/16/2016 7:25:00 AM Dilaudid [IVP] IVP 1 mg, administered: 07/16/2016 7:30:00 AM Zofran [IVP] IVP 4 mg, administered: 07/16/2016 7:26:00 AM Dilaudid [IVP] IVP 1 mg, administered: 07/16/2016 9:46:00 AM The following Medications were prescribed to the patient: Oxycodone/APAP 5 mg/325 mg: take 1-2 tablets orally every 4 hours as needed for pain. Dispense thirty (30). No refill. -- Germán Chung MD
--- NOTE | 2016-07-17 11:16 | ED DISCHARGE INSTRUCTIONS ---
Patient: MARIA LUISA RAIN General Instructions [facility] VisitID: [id number] [place] [address] 46y, M Registration Date/Time: 07/16/2016 Abdominal pain. Acute pancreatitis. INSTRUCTIONS Do not work for five days. (YOU HAVE MILD PANCREATITIS, YOU MAY NEED TO BE HOSPITALIZED BUT YOU CAN TRY A TRIAL OF HOME CARE CLEAR LIQUIDS ONLY FOR 3 DAYS. IMMEDIATE RECHECK FOR UNCONTROLLED PAIN. ESTABLISH PRIMARY CARE. CALL FOR APPOINTMENT TODAY. I SPOKE WITH DR MILES HE ASKED THAT YOU CALL TODAY TO START THE PROCESS.). Prescription Medications: Oxycodone/APAP 5 mg/325 mg: take 1-2 tablets orally every 4 hours as needed for pain. Dispense thirty (30). No refill. ADDITIONAL INFORMATION Pancreatitis The pancreas is an organ in the left upper abdomen that secretes digestive juices into the stomach. Pancreatitis is an inflammation of the pancreas. This may occur for various causes including heavy alcohol use, gall stone blockage of the outflow duct from the pancreas, certain medicines and viral illness. Sometimes the cause of pancreatitis cannot be found. Moderate to severe illness requires being treated in the hospital. Milder attacks of pancreatitis can be treated at home. Home Care: 1) Absolutely NO ALCOHOL. 2) Rest in bed or sit up in a chair until you feel better. 3) Eat small more frequent meals rather than a few large meals each day. 4) Follow a high protein, high carbohydrate, low fat diet. 5) If you were given medicine for pain or vomiting, take it as prescribed. Follow Up with your doctor or as directed by our staff for further evaluation. Get Prompt Medical Attention if any of the following occur: -- Continued or worsening pain in the abdomen -- Repeated vomiting: unable to keep down liquids -- Dizziness, weakness or fainting -- Vomiting blood or blood in the stool (black or red color) -- Fever over 100.4 F (38.0 C) -- Severe muscle cramps or seizure -- Trouble breathing or fast breathing (over 25 breaths/minute) -- Jaundice (yellow color of the skin or eyes) Oxycodone Hydrochloride, Acetaminophen Oral tablet What is this medicine? ACETAMINOPHEN; OXYCODONE (a set a MIKEY padmaja fen; ox i KOE done) is a pain reliever. It is used to treat mild to moderate pain. How should I use this medicine? Take this medicine by mouth with a full glass of water. Follow the directions on the prescription label. Take your medicine at regular intervals. Do not take your medicine more often than directed. Talk to your welfare director regarding the use of this medicine in children. Special care may be needed. Patients over 65 years old may have a stronger reaction and need a smaller dose. What side effects may I notice from receiving this medicine? Side effects that you should report to your doctor or health healthcare project manager as soon as possible: allergic reactions like skin rash, itching or hives, swelling of the face, lips, or tongue breathing difficulties, wheezing confusion light headedness or fainting spells severe stomach pain yellowing of the skin or the whites of the eyes Side effects that usually do not require medical attention (report to your doctor or health healthcare project manager if they continue or are bothersome): dizziness drowsiness nausea vomiting What may interact with this medicine? alcohol antihistamines barbiturates like amobarbital, butalbital, butabarbital, methohexital, pentobarbital, phenobarbital, thiopental, and secobarbital benztropine drugs for bladder problems like solifenacin, trospium, oxybutynin, tolterodine, hyoscyamine, and methscopolamine drugs for breathing problems like ipratropium and tiotropium drugs for certain stomach or intestine problems like propantheline, homatropine methylbromide, glycopyrrolate, atropine, belladonna, and dicyclomine general anesthetics like etomidate, ketamine, nitrous oxide, propofol, desflurane, enflurane, halothane, isoflurane, and sevoflurane medicines for depression, anxiety, or psychotic disturbances medicines for sleep muscle relaxants naltrexone narcotic medicines (opiates) for pain phenothiazines like perphenazine, thioridazine, chlorpromazine, mesoridazine, fluphenazine, prochlorperazine, promazine, and trifluoperazine scopolamine tramadol trihexyphenidyl What if I miss a dose? If you miss a dose, take it as soon as you can. If it is almost time for your next dose, take only that dose. Do not take double or extra doses. Where should I keep my medicine? Keep out of the reach of children. This medicine can be abused. Keep your medicine in a safe place to protect it from theft. Do not share this medicine with anyone. Selling or giving away this medicine is dangerous and against the law. Store at room temperature between 20 and 25 degrees C (68 and 77 degrees F). Keep container tightly closed. Protect from light. This medicine may cause accidental overdose and if it is taken by other adults, children, or pets. Flush any unused medicine down the toilet to reduce the chance of harm. Do not use the medicine after the expiration date. What should I tell my health care provider before I take this medicine? They need to know if you have any of these conditions: brain tumor Crohn's disease, inflammatory bowel disease, or ulcerative colitis drink more than 3 alcohol containing drinks per day drug abuse or addiction head injury heart or circulation problems kidney disease or problems going to the bathroom liver disease lung disease, asthma, or breathing problems an unusual or allergic reaction to acetaminophen, oxycodone, other opioid analgesics, other medicines, foods, dyes, or preservatives or trying to get breast-feeding What should I watch for while using this medicine? Tell your doctor or health healthcare project manager if your pain does not go away, if it gets worse, or if you have new or a different type of pain. You may develop tolerance to the medicine. Tolerance means that you will need a higher dose of the medication for pain relief. Tolerance is normal and is expected if you take this medicine for a long time. Do not suddenly stop taking your medicine because you may develop a severe reaction. Your body becomes used to the medicine. This does NOT mean you are addicted. Addiction is a behavior related to getting and using a drug for a non-medical reason. If you have pain, you have a medical reason to take pain medicine. Your doctor will tell you how much medicine to take. If your doctor wants you to stop the medicine, the dose will be slowly lowered over time to avoid any side effects. You may get drowsy or dizzy. Do not drive, use machinery, or do anything that needs mental alertness until you know how this medicine affects you. Do not stand or sit up quickly, especially if you are an older patient. This reduces the risk of dizzy or fainting spells. Alcohol may interfere with the effect of this medicine. Avoid alcoholic drinks. There are different types of narcotic medicines (opiates) for pain. If you take more than one type at the same time, you may have more side effects. Give your health care provider a list of all medicines you use. Your doctor will tell you how much medicine to take. Do not take more medicine than directed. Call emergency for help if you have problems breathing. The medicine will cause constipation. Try to have a bowel movement at least every 2 to 3 days. If you do not have a bowel movement for 3 days, call your doctor or health healthcare project manager. Do not take Tylenol (acetaminophen) or medicines that have acetaminophen with this medicine. Too much acetaminophen can be very dangerous. Many nonprescription medicines contain acetaminophen. Always read the labels carefully to avoid taking more acetaminophen. You have been given the following additional information: Pancreatitis Oxycodone Hydrochloride, Acetaminophen Oral tablet Do not work for five days. (Electronically signed by Germán Chung MD 07/17/2016 11:15)
--- NOTE | 2016-07-17 11:16 | ED MAR SUMMARY ---
..... Medication Administration Record [facility] [address] [place] [address] Patient: MARIA LUISA RAIN Visit ID: [id number] 46y, M Weight: 108.8 kg Height/Length: 77 in BMI: 28.5 ALLERGIES: Sudafed Given 06:46 07/16/2016 Jagdeep Dominguez R.N. Medication Administered: ZOFRAN [IVP] (ONDANSETRON HCL), Dose: 4 mg IVP over 2 minute(s), Site: #1 left AC. Medication Ordered: Zofran IV 4 mg (NOW). Start 07:25 07/16/2016 Ethan Sterling R.N., Stop 09:58 07/16/2016 Ethan Sterling R.N. Medication Administered: IV NS (SALINE), Dose: IV Fluids over 1 hour(s), Rate: 1000 mL/hr, Dispensed: 1000 mL bag, Site: #1 left AC. Medication Ordered: IV NS : initial bolus none -, then 500 mL/hr for 2h (NOW); Urgent. Given 07:26 07/16/2016 Ethan Sterling R.N. Medication Administered: ZOFRAN [IVP] (ONDANSETRON HCL), Dose: 4 mg IVP over 2 minute(s), Site: #1 left AC. Medication Ordered: Zofran IV 4 mg (NOW). Given 07:30 07/16/2016 Ethan Sterling R.N. Medication Administered: DILAUDID [IVP] (HYDROMORPHONE HCL PF), Dose: 1 mg IVP over 2 minute(s), Site: #1 left AC. Medication Ordered: Dilaudid IV 1 mg (NOW). Given 09:46 07/16/2016 Ethan Sterling R.N. Medication Administered: DILAUDID [IVP] (HYDROMORPHONE HCL PF), Dose: 1 mg IVP over 2 minute(s), Site: #1 left AC. Medication Ordered: Dilaudid IV 1 mg (NOW).
--- NOTE | 2016-07-17 11:16 | ED MED RECONCILIATION SUMMARY ---
Patient: MARIA LUISA RAIN Medication Reconciliation Report [facility] VisitID: [id number] [address] [place] [address] 46y, M Registration Date/Time: 07/16/2016 Weight: 108.8 kg Height/Length: 77 in. BMI: 28.5 ALLERGIES: Sudafed The patient's Home Medications are listed below: NONE. The source(s) of the original Home Medication information: patient The following Medications were given to the patient in the Emergency Department: Zofran [IVP] IVP 4 mg, administered: 07/16/2016 6:46:00 AM IV NS IV Fluids bolus 0, then 1000 mL/hr, administered: 07/16/2016 7:25:00 AM Dilaudid [IVP] IVP 1 mg, administered: 07/16/2016 7:30:00 AM Zofran [IVP] IVP 4 mg, administered: 07/16/2016 7:26:00 AM Dilaudid [IVP] IVP 1 mg, administered: 07/16/2016 9:46:00 AM The following Medications were prescribed to the patient: Oxycodone/APAP 5 mg/325 mg: take 1-2 tablets orally every 4 hours as needed for pain. Dispense thirty (30). No refill. -- Germán Chung MD
[2016-09-26] MEDS ORDERED: HYDROCHLOROTH12.5 MG PO (04:52)
[2016-09-26] MEDS ORDERED: LISINOPRIL10 MG PO (06:04)
[2016-09-26] MEDS ORDERED: PANTOPRAZOLE SO40 MG PO (11:53)
[2016-09-26] MEDS ORDERED: FAMOTIDINE20 MG PO (11:53)
[2016-09-26] MEDS ORDERED: NORVASC5 MG PO (17:11)
[2016-09-26] MEDS ORDERED: TRAMADOL HCL50 MG PO (18:00)
== END 2016-07-16 10:02 | disposition home or self-care (01) ==
LOC: ED SRH 06:28
DX: K85.90 Acute pancreatitis without necrosis or infection, unspecified (principal); R10.31 Right lower quadrant pain
CPT/HCPCS: 90004; 90100; 92235; 92530; 95059

== ENCOUNTER 2016-08-07 16:38 | Emergency (ER) | payer OTHER ==
--- NOTE | 2016-08-07 18:46 | ED NURSING NOTES ---
Clinical Report - [facility] [address] [place] [address] 08/07/2016 16:38 Patient: MARIA LUISA RAIN TRIAGE Triage time 17:Aug 07 2016. Acuity: LEVEL 3. Chief Complaint: ABDOMINAL PAIN, NAUSEA and VOMITING. Alert. No acute distress. RENATO COMA SCORE: Renato Coma Scale: 15- eyes open spontaneously (4); best verbal response- oriented x 4 (5); best motor response- obeys commands (6). --17:06 Sierra Daly R.N. 17:02 08/07/16. BP: 115/108. HR: 91. RR: 16. O2 saturation: 100%. Temp: 98.5 F. Pain level now: 11/21. --17:06 Sierra Daly R.N. Weight: 108.8 kg. Height/Length: 76 inches. BMI: 29.2. --17:03 Sierra Daly R.N. Medications None. --17:05 Sierra Daly R.N. Allergies Sudafed.(vomiting) --17:05 Sierra Daly R.N. History Arrived by private vehicle. Historian: patient. Onset. (about 2 weeks). Last oral intake by patient was liquid 2 hours ago. 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 PAST MEDICAL HX: Immunizations: up-to-date. SOCIAL HX: Never smoker. No alcohol use or drug use. No recent travel. No infectious disease exposure. No known contact with a sick individual. SELF HARM ASSESSMENT: A self harm assessment was performed. The patient answered "no" to the question "Do you have thoughts of harming or killing yourself?". FALL RISK ASSESSMENT: Fall risk assessment completed. No fall risk identified. NUTRITIONAL RISK ASSESSMENT: The nutritional risk assessment revealed no deficiencies. FUNCTIONAL ASSESSMENT: Functional assessment: no impairments noted. LEARNING NEEDS ASSESSMENT: The learning needs assessment revealed no barriers. ABUSE ASSESSMENT: Abuse assessment: The patient was asked "Do you feel safe in your home?". SKIN INTEGRITY ASSESSMENT: Skin integrity risk assessment completed. No skin integrity risk identified. --17:06 Sierra Daly R.N. PROBLEMS: Abdominal Pain. Pancreatitis. Gastroesophageal Reflux Disease. Sprain. Hypertension. --17:05 Sierra Daly R.N. ADDITIONAL SURGERIES: Ankle rt, hardware. Right hand surgery. --17:05 Sierra Daly R.N. Interventions ID band on patient. --17:06 Sierra Daly R.N. PHYSICAL ASSESSMENT GENERAL / NEURO / PSYCH: Alert. Oriented X 4. RESPIRATORY: Respirations not labored. CVS: Capillary refill less than 2 seconds. GI / : Abdomen soft. Abdominal tenderness in the right upper quadrant. Stool heme negative. (POC test reference range: negative). SKIN: Skin is warm and dry. --17: Sierra Daly R.N. NURSING PROGRESS NOTES Patient gowned. Head of bed elevated. Patient identifiers checked. Call light placed in reach. Side rails up. Bed placed in lowest position. Brakes of bed on. --17: Sierra Daly R.N. 17:19 08/07/2016 Zofran (Ondansetron HCl) IVP 4 mg given over 2 minute(s) via site #1. Allergies verified and confirmed 5 rights. IV patency established. IV site checked: no pain, redness, or swelling. IV flushed thoroughly pre- and post-medication administration. IVP given by RN. --17: Sierra Daly R.N. 17:20 08/07/2016 Site #1 started via IV in the right antecubital space with an 20g angiocath using a topical anesthetic, with aseptic technique and good blood return; two attempts. Blood drawn: rainbow set. Labeled in the presence of the patient and sent to the lab. Saline lock flushed with 10 mL saline. --17:20 Sierra Daly R.N. 17:20 08/07/2016 Toradol IVP 30 mg given over 2 minute(s) via site #1. Allergies verified and confirmed 5 rights. IV patency established. IV site checked: no pain, redness, or swelling. IV flushed thoroughly pre- and post-medication administration. --17:20 Sierra Daly R.N. 18:36 08/07/2016 PROTONIX (Pantoprazole Sodium) IVP 40 mg given over 5 minute(s) via site #1. Allergies verified and confirmed 5 rights. IV patency established. IV site checked: no pain, redness, or swelling. IV flushed thoroughly pre- and post-medication administration. IVP given by RN. --18:36 Sierra Daly R.N. 18:52 08/07/2016 GI Cocktail (Magnesium-Aluminum) PO 30 mL given. Allergies verified and confirmed 5 rights. --18:52 Sierra Daly R.N. 17:00 08/07/16. BP: 152/102. O2 saturation: 99%. --19:00 Sierra Daly R.N. 18:00 08/07/16. BP: 192/110. HR: 80. RR: 16. O2 saturation: 100%. --19:01 Sierra Daly R.N. DISPOSITION / DISCHARGE Departure time: :Aug 07 2016. Condition at departure: unchanged. No learning barriers present. Discharge instructions provided and reviewed with the patient. Reviewed medication(s) side effects, precautions, dosing and course information. Prescription(s) given to the patient. Reviewed referral to a primary care physician. Patient verbalized understanding. Written instructions provided in Portuguese. The patient was discharged home. He left the Emergency Department ambulatory and via private vehicle. Patient driving. FALL RISK ASSESSMENT: Fall risk assessment completed. No fall risk identified. --19:02 Sierra Daly R.N. 19:01 08/07/16. BP: 179/134. HR: 82. RR: 16. O2 saturation: 100%. Pain level now: 07/22. --19:02 Sierra Daly R.N. Locked/Released at 08/08/2016 19:13 by Sierra Daly R.N.
--- NOTE | 2016-08-07 18:46 | ED CLINICAL REPORT ---
Clinical Report - Physicians/Mid Levels Formerly [facility] [address] [place] [address] 08/07/2016 16:38 Patient: MARIA LUISA RAIN Time Seen: 16:59; initial patient contact, initial documentation, patient care assumed. Arrived- By private vehicle. Historian- patient. RETURN VISIT: recently seen in this ED by another ED physician. Seen now for the same problem as before. HISTORY OF PRESENT ILLNESS Chief Complaint: ABDOMINAL PAIN. At its maximum, severity described as severe. When seen in the E.D., severity described as moderate. Modifying factors. Not worsened by anything. Not relieved by anything. It is described as "pain" and diffuse. This started about 2 weeks and is still present. It has been constant. The patient has had nausea. No loss of appetite or diarrhea. He has had vomiting (none today). No recent travel. Similar symptoms previously: Chronically, milder. Recent medical care: The patient was seen recently in the emergency department. ( txed here 07/16 for same abd pain, admit was discussed, but pt wanted to go home, pt still having pain, went to clinic [facility] but was sent here for eval stating that they did not do the work up for belly issues). REVIEW OF SYSTEMS No constipation, black stools, difficulty with urination, pain with urination or urinary frequency. No bloody stools, fever, chest pain or difficulty breathing. He has had mild hematemesis. It has occurred only once and has contained blood flecks. All systems otherwise negative, except as recorded above. PAST HISTORY See nurses notes. PROBLEMS: Abdominal Pain. Pancreatitis. Gastroesophageal Reflux Disease. Sprain. Hypertension. --17:05 Sierra Daly R.N. ADDITIONAL SURGERIES: Ankle rt, hardware. Right hand surgery. --17:05 Sierra Daly R.N. SOCIAL HISTORY Never smoker. No alcohol use or drug use. No recent travel. Is a local resident. FAMILY HISTORY Negative. ADDITIONAL NOTES The nursing notes have been reviewed with agreement regarding the chief complaint, HPI, ROS, PMH and patient medications and allergies. PHYSICAL EXAM Vital Signs: 08/07/2016 17:02 BP: 115/108. HR: 91. RR: 16. O2 saturation: 100%. Temp: 98.5 F. Pain level now: 11/21. Have been reviewed as abnormal and appear to be correct. Hypertensive. Heart rate normal. Respiratory rate normal. Temperature normal. Oxygen saturation normal. Appearance: Alert. Oriented X3. No acute distress. Eyes: Pupils equal, round and reactive to light. Eyes normal inspection. Neck: Normal inspection. Neck supple. CVS: Normal heart rate and rhythm. Heart sounds normal. Pulses normal. Respiratory: No respiratory distress. Breath sounds normal. Chest nontender. Abdomen: Soft and nontender. Bowel sounds normal. No organomegaly. No mass. Back: Normal inspection. Skin: Skin warm and dry. Normal skin color. No rash. Normal skin turgor. Extremities: Extremities exhibit normal ROM. No lower extremity edema. Neuro: Oriented X 3. No motor deficit. No sensory deficit. LABS, X-RAYS, AND EKG Laboratory Tests: UA-Culture if indicated: (JOLIE: 08/07/2016 18:10) ( [facility] Final results Test Result Flag Units (Reference) URINE COLOR YELLOW URINE APPEARANCE CLEAR URINE GLUCOSE NEGATIVE (NEGATIVE) URINE BILIRUBIN NEGATIVE (NEGATIVE) URINE KETONE NEGATIVE (NEGATIVE) URINE SPECIFIC GRAVITY 1.025 (1.010-1.030) URINE PH 6.5 (5.0-8.0) URINE PROTEIN NEGATIVE (NEGATIVE) URINE UROBILINOGEN 1.0 EU/dL (0.2-1.0) URINE NITRITE NEGATIVE (NEGATIVE) URINE BLOOD TRACE-INTACT (NEGATIVE) URINE LEUK ESTERASE NEGATIVE (NEGATIVE) URINE RBC 0-1 rbc/hpf (0-1) URINE WBC RARE wbc/hpf (0-1) URINE EPITHELIAL CELLS RARE EPI/hpf (0-5) URINE BACTERIA NONE SEEN (NONE SEEN) URINE COMMENT CULT NOT INDICATED URINE CULTURES ARE SET-UP BASED ON THE FOLLOWING CRITERIA:POSITIVE NITRITEPOSITIVE LEUKOCYTE ESTERASEGREATER THAN 10 WHITE BLOOD CELLSMODERATE (2+) OR GREATER BACTERIA CBC w Diff: (JOLIE: 08/07/2016 17:20) ( [facility] 17:34) Final results Test Result Flag Units (Reference) WHITE BLOOD COUNT 7.5 K/uL (4.5-11.5) RED BLOOD COUNT 5.02 M/uL (4.50-5.90) HEMOGLOBIN 14.1 gm/dL (13.5-17.5) HEMATOCRIT 42.7 % (41.0-53.0) MEAN CELL VOLUME 85 fL (80-100) MEAN CORPUSCULAR HGB 28 pg (26-34) MEAN CORPUSCULAR HGB CONC 33 g/dL (31-37) RED CELL DISTRIBUTION WIDTH 14.1 % (11.6-14.8) PLATELET COUNT 227 K/uL (150-400) NEUTROPHIL % 58.5 % (50-75) LYMPH % 33.2 % (25-40) MONO % 5.5 % (3-14) EOSINOPHIL % 2.5 % (0-4) BASOPHIL % 0.3 % (0-2) CMP: (JOLIE: 08/07/2016 17:20) ( MsgRcvd 08/07/2016 17:55) Final results Test Result Flag Units (Reference) GLUCOSE 85 mg/dL (70-110) BUN 13 mg/dL (7-18) CREATININE 1.0 mg/dL (0.6-1.3) Estimated GFR >60 mL/min Estimated GFR- >60 mL/min Note: Persistent reduction over 3 months in eGFR<60 mL/min/1.73 m2 defines CKD. Patients with eGFR values>=60 mL/min/1.73 m2 may also have CKD if evidence ofpersistent proteinuria. Additional information may be foundat www.kidney.org. SODIUM 144 mmol/L (136-145) POTASSIUM 4.0 mmol/L (3.5-5.1) CHLORIDE 105 mmol/L (98-107) CARBON DIOXIDE 28 mmol/L (21-32) CALCIUM 8.7 mg/dL (8.5-10.1) TOTAL PROTEIN 7.9 g/dL (6.4-8.2) ALBUMIN 4.1 g/dL (3.3-5.0) BILIRUBIN, TOTAL 0.5 mg/dL (0.0-1.0) ALKALINE PHOSPHATASE 91 U/L (46-116) AST (SGOT) 38 H U/L (15-37) ALT (SGPT) 79 H U/L (12-78) LIPASE 968 H U/L (73-393) AMYLASE 152 H U/L (25-115) . PROGRESS AND PROCEDURES Course of Care: pt has leona for some narcs and #4 er visits, see report for full details 17:46 08/07/16. Chart reviewed from 07/16 visit Labs: AST (SGOT) 43 H U/L (15-37) ALT (SGPT) 65 U/L (12-78) LIPASE 463 H U/L (73-393) AMYLASE 112 U/L (25-115) pt's case discussed with Dr Hahn had discussion with pt re dc plan, pt now has health insurance, and he needs dr, agreed with plan to f/u with pcp for gerd, htn, and pancreais issues, gi specialist. Patient counseled in person regarding the patient's stable condition, test results and diagnosis. 1840. Differential Diagnosis: I considered gastritis, gastroenteritis, peptic ulcer disease, acute appendicitis, diverticulitis, colon cancer, ulcerative colitis, biliary colic, cholecystitis, cholelithiasis, hepatitis, pancreatitis, common bile duct obstruction, urinary tract infection, prostatitis, ureterolithiasis and viral syndrome as a possible cause of abdominal pain in this patient. This is a partial list of diagnoses considered. Above considerations are based on history, physical exam and laboratory data. Differential diagnosis was discussed with patient. Disposition: Discharged home in good and improved condition (18:45). Condition: good and stable. CLINICAL IMPRESSION Chronic abdominal pain. Chronic pancreatitis. No biliary, alcoholic, drug-induced or idiopathic pancreatitis. No pseudocyst, abscess or hyperlipidemia. INSTRUCTIONS (htn). Warnings: GENERAL WARNINGS: Return or contact your physician immediately if your condition worsens or changes unexpectedly, if not improving as expected, or if other problems arise. SPECIFICALLY, return if you develop pain in the abdomen or pelvis, fever, the inability to keep fluids down, blood in vomitus, blood in diarrhea, fainting or lightheadedness. Prescription Medications: Zofran 4 mg: Take 1 orally every six hours as needed for nausea/vomiting. Dispense ten (10). No refills. Substitution is permissible. Prilosec 20 mg capsules: Take 1 capsule orally once daily. Dispense fifteen (15). No refills. Substitution is permissible. Ultram 50 mg tablets: take 1-2 orally every 6 hours as needed for pain. Dispense twenty (20). No refills. Substitution is permissible. Follow-up: Screening today revealed the patient's blood pressure to be in the hypertensive range. The patient should follow up with a primary care provider for blood pressure management. Understanding of the discharge instructions verbalized by patient. Follow-up with: Marvin De Oliveira MD, Family [facility], , [facility], [address] [place], [place] [address]nd [place] [address] Follow up in about two days even if well. Call for an appointment. Summary of care provided to patient. Follow-up with: Pranav Broderick MD, Gastroenterology, , [address] , [place], [address]; Jose Lockhart MD, Gastroenterology, , [address] [place] [address], [address], [place], [address]; Britany Viveros MD, Gastroenteroloy, , [address] [place] [address] [address], [place], [address]; Raffaele Pinedo MD, Gastroenteroloy, , [address] [place] [address] [address], [place], [address]; Catracho Sandhu MD, Gastroenteroloy, , [address] [place] [address] [address], [place], [address] Follow up in about one week even if well. Call for an appointment. Summary of care provided to patient. (Electronically signed by Melanie Boswell A.R.N.P. 08/07/2016 19:09)
--- NOTE | 2016-08-07 18:46 | ED CLINICAL REPORT ---
Clinical Report - Physicians/Mid Levels [facility] [address] [place] [address] 08/07/2016 16:38 Patient: MARIA LUISA RAIN Time Seen: 16:59; initial patient contact, initial documentation, patient care assumed. Arrived- By private vehicle. Historian- patient. RETURN VISIT: recently seen in this ED by another ED physician. Seen now for the same problem as before. HISTORY OF PRESENT ILLNESS Chief Complaint: ABDOMINAL PAIN. At its maximum, severity described as severe. When seen in the E.D., severity described as moderate. Modifying factors. Not worsened by anything. Not relieved by anything. It is described as "pain" and diffuse. This started about 2 weeks and is still present. It has been constant. The patient has had nausea. No loss of appetite or diarrhea. He has had vomiting (none today). No recent travel. Similar symptoms previously: Chronically, milder. Recent medical care: The patient was seen recently in the emergency department. ( txed here 07/16 for same abd pain, admit was discussed, but pt wanted to go home, pt still having pain, went to clinic [facility]man captain but was sent here for eval stating that they did not do the work up for belly issues). REVIEW OF SYSTEMS No constipation, black stools, difficulty with urination, pain with urination or urinary frequency. No bloody stools, fever, chest pain or difficulty breathing. He has had mild hematemesis. It has occurred only once and has contained blood flecks. All systems otherwise negative, except as recorded above. PAST HISTORY See nurses notes. PROBLEMS: Abdominal Pain. Pancreatitis. Gastroesophageal Reflux Disease. Sprain. Hypertension. --17:05 Sierra Daly R.N. ADDITIONAL SURGERIES: Ankle rt, hardware. Right hand surgery. --17:05 Sierra Daly R.N. SOCIAL HISTORY Never smoker. No alcohol use or drug use. No recent travel. Is a local resident. FAMILY HISTORY Negative. ADDITIONAL NOTES The nursing notes have been reviewed with agreement regarding the chief complaint, HPI, ROS, PMH and patient medications and allergies. PHYSICAL EXAM Vital Signs: 08/07/2016 17:02 BP: 115/108. HR: 91. RR: 16. O2 saturation: 100%. Temp: 98.5 F. Pain level now: 11/21. Have been reviewed as abnormal and appear to be correct. Hypertensive. Heart rate normal. Respiratory rate normal. Temperature normal. Oxygen saturation normal. Appearance: Alert. Oriented X3. No acute distress. Eyes: Pupils equal, round and reactive to light. Eyes normal inspection. Neck: Normal inspection. Neck supple. CVS: Normal heart rate and rhythm. Heart sounds normal. Pulses normal. Respiratory: No respiratory distress. Breath sounds normal. Chest nontender. Abdomen: Soft and nontender. Bowel sounds normal. No organomegaly. No mass. Back: Normal inspection. Skin: Skin warm and dry. Normal skin color. No rash. Normal skin turgor. Extremities: Extremities exhibit normal ROM. No lower extremity edema. Neuro: Oriented X 3. No motor deficit. No sensory deficit. LABS, X-RAYS, AND EKG Laboratory Tests: UA-Culture if indicated: (JOLIE: 08/07/2016 18:10) ( [facility] 08[facility] 18:30) Final results Test Result Flag Units (Reference) URINE COLOR YELLOW URINE APPEARANCE CLEAR URINE GLUCOSE NEGATIVE (NEGATIVE) URINE BILIRUBIN NEGATIVE (NEGATIVE) URINE KETONE NEGATIVE (NEGATIVE) URINE SPECIFIC GRAVITY 1.025 (1.010-1.030) URINE PH 6.5 (5.0-8.0) URINE PROTEIN NEGATIVE (NEGATIVE) URINE UROBILINOGEN 1.0 EU/dL (0.2-1.0) URINE NITRITE NEGATIVE (NEGATIVE) URINE BLOOD TRACE-INTACT (NEGATIVE) URINE LEUK ESTERASE NEGATIVE (NEGATIVE) URINE RBC 0-1 rbc/hpf (0-1) URINE WBC RARE wbc/hpf (0-1) URINE EPITHELIAL CELLS RARE EPI/hpf (0-5) URINE BACTERIA NONE SEEN (NONE SEEN) URINE COMMENT CULT NOT INDICATED URINE CULTURES ARE SET-UP BASED ON THE FOLLOWING CRITERIA:POSITIVE NITRITEPOSITIVE LEUKOCYTE ESTERASEGREATER THAN 10 WHITE BLOOD CELLSMODERATE (2+) OR GREATER BACTERIA CBC w Diff: (JOLIE: 08/07/2016 17:20) ( [facility] 08/07/2016 17:34) Final results Test Result Flag Units (Reference) WHITE BLOOD COUNT 7.5 K/uL (4.5-11.5) RED BLOOD COUNT 5.02 M/uL (4.50-5.90) HEMOGLOBIN 14.1 gm/dL (13.5-17.5) HEMATOCRIT 42.7 % (41.0-53.0) MEAN CELL VOLUME 85 fL (80-100) MEAN CORPUSCULAR HGB 28 pg (26-34) MEAN CORPUSCULAR HGB CONC 33 g/dL (31-37) RED CELL DISTRIBUTION WIDTH 14.1 % (11.6-14.8) PLATELET COUNT 227 K/uL (150-400) NEUTROPHIL % 58.5 % (50-75) LYMPH % 33.2 % (25-40) MONO % 5.5 % (3-14) EOSINOPHIL % 2.5 % (0-4) BASOPHIL % 0.3 % (0-2) CMP: (JOLIE: 08/07/2016 17:20) ( MsgRcvd 08/07/2016 17:55) Final results Test Result Flag Units (Reference) GLUCOSE 85 mg/dL (70-110) BUN 13 mg/dL (7-18) CREATININE 1.0 mg/dL (0.6-1.3) Estimated GFR >60 mL/min Estimated GFR- >60 mL/min Note: Persistent reduction over 3 months in eGFR<60 mL/min/1.73 m2 defines CKD. Patients with eGFR values>=60 mL/min/1.73 m2 may also have CKD if evidence ofpersistent proteinuria. Additional information may be foundat www.kidney.org. SODIUM 144 mmol/L (136-145) POTASSIUM 4.0 mmol/L (3.5-5.1) CHLORIDE 105 mmol/L (98-107) CARBON DIOXIDE 28 mmol/L (21-32) CALCIUM 8.7 mg/dL (8.5-10.1) TOTAL PROTEIN 7.9 g/dL (6.4-8.2) ALBUMIN 4.1 g/dL (3.3-5.0) BILIRUBIN, TOTAL 0.5 mg/dL (0.0-1.0) ALKALINE PHOSPHATASE 91 U/L (46-116) AST (SGOT) 38 H U/L (15-37) ALT (SGPT) 79 H U/L (12-78) LIPASE 968 H U/L (73-393) AMYLASE 152 H U/L (25-115) . PROGRESS AND PROCEDURES Course of Care: pt has leona for some narcs and #4 er visits, see report for full details 17:46 08/07/16. Chart reviewed from 07/16 visit Labs: AST (SGOT) 43 H U/L (15-37) ALT (SGPT) 65 U/L (12-78) LIPASE 463 H U/L (73-393) AMYLASE 112 U/L (25-115) pt's case discussed with Dr Hahn had discussion with pt re dc plan, pt now has health insurance, and he needs dr, agreed with plan to f/u with pcp for gerd, htn, and pancreais issues, gi specialist. Patient counseled in person regarding the patient's stable condition, test results and diagnosis. 1840. Differential Diagnosis: I considered gastritis, gastroenteritis, peptic ulcer disease, acute appendicitis, diverticulitis, colon cancer, ulcerative colitis, biliary colic, cholecystitis, cholelithiasis, hepatitis, pancreatitis, common bile duct obstruction, urinary tract infection, prostatitis, ureterolithiasis and viral syndrome as a possible cause of abdominal pain in this patient. This is a partial list of diagnoses considered. Above considerations are based on history, physical exam and laboratory data. Differential diagnosis was discussed with patient. Disposition: Discharged home in good and improved condition (18:45). Condition: good and stable. CLINICAL IMPRESSION Chronic abdominal pain. Chronic pancreatitis. No biliary, alcoholic, drug-induced or idiopathic pancreatitis. No pseudocyst, abscess or hyperlipidemia. INSTRUCTIONS (htn). Warnings: GENERAL WARNINGS: Return or contact your physician immediately if your condition worsens or changes unexpectedly, if not improving as expected, or if other problems arise. SPECIFICALLY, return if you develop pain in the abdomen or pelvis, fever, the inability to keep fluids down, blood in vomitus, blood in diarrhea, fainting or lightheadedness. Prescription Medications: Zofran 4 mg: Take 1 orally every six hours as needed for nausea/vomiting. Dispense ten (10). No refills. Substitution is permissible. Prilosec 20 mg capsules: Take 1 capsule orally once daily. Dispense fifteen (15). No refills. Substitution is permissible. Ultram 50 mg tablets: take 1-2 orally every 6 hours as needed for pain. Dispense twenty (20). No refills. Substitution is permissible. Follow-up: Screening today revealed the patient's blood pressure to be in the hypertensive range. The patient should follow up with a primary care provider for blood pressure management. Understanding of the discharge instructions verbalized by patient. Follow-up with: Marvin De Oliveira MD, [facility], , [facility], [address] [place], [place] [address] [place] [address] Follow up in about two days even if well. Call for an appointment. Summary of care provided to patient. Follow-up with: Pranav Broderick MD, Gastroenterology, , [address] , [place], [address]; Jose Lockhart MD, Gastroenterology, , [address] [place] [address], [address], [place], [address]; Britany Viveros MD, Gastroenteroloy, , [address] [place] [address] [address], [place], [address]; Raffaele Pinedo MD, Gastroenteroloy, , [address] [place] [address] [address], [place], [address]; Catracho Sandhu MD, Gastroenteroloy, , [address] [place] [address] [address], [place], [address] Follow up in about one week even if well. Call for an appointment. Summary of care provided to patient. (Electronically signed by Melanie Boswell A.R.N.P. 08/07/2016 19:09)
--- NOTE | 2016-08-07 18:46 | ED ORDER SUMMARY ---
..... Patient: MARIA LUISA RAIN OrderSheet [facility] VisitID: [id number] [place] [address] 46y, M Registration Date/Time: 08/07/2016 ORDER SHEET Weight: 108.8 kg Allergies: Sudafed GENERAL ORDERS: CBC w Diff Urgent (17:06 08/07/2016 HBivens A.R.N.P.) (Ack 17:08 KHoerner) (17:20 KKnebel R.N.) CMP Urgent (17:06 08/07/2016 HBivens A.R.N.P.) (Ack 17:08 KHoerner) (17:20 KKnebel R.N.) UA-Culture if indicated Urgent (17:06 08/07/2016 HBivens A.R.N.P.) (Ack 17:08 KHoerner) (18:16 KKnebel R.N.) Amylase Urgent (17:06 08/07/2016 HBivens A.R.N.P.) (Ack 17:08 KHoerner) (17:20 KKnebel R.N.) Lipase Urgent (17:06 08/07/2016 HBivens A.R.N.P.) (Ack 17:08 KHoerner) (17:20 KKnebel R.N.) MEDICATION ORDERS: GI Cocktail WHITE PO 30 mL with Lidocaine Viscous Mouth/Throat 15 mL, Maalox Plus Oral 15 mL (NOW) (18:46 08/07/2016 HBivens A.R.N.P.) (18:52 KKnebel R.N.) IV FLUIDS: Toradol IV 30 mg (NOW) (17:06 08/07/2016 HBivens A.R.N.P.) (Ack 17:16 SRoberts R.N.) (17:20 KKnebel R.N.) Zofran IV 4 mg (NOW) (17:06 08/07/2016 HBivens A.R.N.P.) (Ack 17:16 SRoberts R.N.) (17:21 KKnebel R.N.) IV Saline Lock (17:06 08/07/2016 HBivens A.R.N.P.) (Ack 17:16 Briana R.N.) (17:20 Desire R.N.) Protonix IVP 40mg 40 mg (Mix in NS 10ml over 2min) (18:27 08/07/2016 HBivens A.R.N.P.) (18:36 Desire R.N.) ORDER SHEET NOTES: [Electronically signed by Melanie BoswellR.N.PJenise (19:09 08/07/2016)] [Electronically signed by Sierra Daly R.N. (19:13 08/08/2016)] [Electronically locked/signed by Sierra Daly R.N. (19:13 08/08/2016)]
--- NOTE | 2016-08-07 18:46 | ED ORDER SUMMARY ---
..... Patient: MARIA LUISA RAIN OrderSheet [facility] VisitID: [id number] [place] [address] 46y, M Registration Date/Time: 08/07/2016 ORDER SHEET Weight: 108.8 kg Allergies: Sudafed GENERAL ORDERS: CBC w Diff Urgent (17:06 08/07/2016 HBivens A.R.N.P.) (Ack 17:08 KHoerner) (17:20 KKnebel R.N.) CMP Urgent (17:06 08/07/2016 HBivens A.R.N.P.) (Ack 17:08 KHoerner) (17:20 KKnebel R.N.) UA-Culture if indicated Urgent (17:06 08/07/2016 HBivens A.R.N.P.) (Ack 17:08 KHoerner) (18:16 KKnebel R.N.) Amylase Urgent (17:06 08/07/2016 HBivens A.R.N.P.) (Ack 17:08 KHoerner) (17:20 KKnebel R.N.) Lipase Urgent (17:06 08/07/2016 HBivens A.R.N.P.) (Ack 17:08 KHoerner) (17:20 KKnebel R.N.) MEDICATION ORDERS: GI Cocktail WHITE PO 30 mL with Lidocaine Viscous Mouth/Throat 15 mL, Maalox Plus Oral 15 mL (NOW) (18:46 08/07/2016 HBivens A.R.N.P.) (18:52 KKnebel R.N.) IV FLUIDS: Toradol IV 30 mg (NOW) (17:06 08/07/2016 HBivens A.R.N.P.) (Ack 17:16 SRoberts R.N.) (17:20 KKnebel R.N.) Zofran IV 4 mg (NOW) (17:06 08/07/2016 HBivens A.R.N.P.) (Ack 17:16 SRoberts R.N.) (17:21 KKnebel R.N.) IV Saline Lock (17:06 08/07/2016 HBivens A.R.N.P.) (Ack 17:16 Briana R.N.) (17:20 Desire R.N.) Protonix IVP 40mg 40 mg (Mix in NS 10ml over 2min) (18:27 08/07/2016 HBivens A.R.N.P.) (18:36 Desire R.N.) ORDER SHEET NOTES: [Electronically signed by Melanie BoswellR.N.PJenise (19:09 08/07/2016)] [Electronically signed by Sierra Daly R.N. (19:13 08/08/2016)] [Electronically locked/signed by Sierra Daly R.N. (19:13 08/08/2016)]
--- NOTE | 2016-08-08 19:13 | ED MED RECONCILIATION SUMMARY ---
Patient: MARIA LUISA RAIN Medication Reconciliation Report [facility] VisitID: [id number] [address] [place] [address] 46y, M Registration Date/Time: 08/07/2016 Weight: 108.8 kg Height/Length: 76 in. BMI: 29.2 ALLERGIES: Sudafed The patient's Home Medications are listed below: NONE. The source(s) of the original Home Medication information: Not obtained. The following Medications were given to the patient in the Emergency Department: Toradol [IVP] IVP 30 mg, administered: 08/07/2016 5:20:00 PM Zofran [IVP] IVP 4 mg, administered: 08/07/2016 5:19:00 PM PROTONIX [IVP] IVP 40 mg, administered: 08/07/2016 6:36:00 PM GI Cocktail [PO] PO 30 mL, administered: 08/07/2016 6:52:00 PM The following Medications were prescribed to the patient: Zofran 4 mg: Take 1 orally every six hours as needed for nausea/vomiting. Dispense ten (10). No refills. Substitution is permissible. -- Melanie Boswell, A.R.N.P. Prilosec 20 mg capsules: Take 1 capsule orally once daily. Dispense fifteen (15). No refills. Substitution is permissible. -- Melanie Boswell, A.R.N.P. Ultram 50 mg tablets: take 1-2 orally every 6 hours as needed for pain. Dispense twenty (20). No refills. Substitution is permissible. -- Melanie Boswell A.R.N.P.
--- NOTE | 2016-08-08 19:13 | ED MED RECONCILIATION SUMMARY ---
Patient: MARIA LUISA RAIN Medication Reconciliation Report [facility] VisitID: [id number] [address] [place] [address] 46y, M Registration Date/Time: 08/07/2016 Weight: 108.8 kg Height/Length: 76 in. BMI: 29.2 ALLERGIES: Sudafed The patient's Home Medications are listed below: NONE. The source(s) of the original Home Medication information: Not obtained. The following Medications were given to the patient in the Emergency Department: Toradol [IVP] IVP 30 mg, administered: 08/07/2016 5:20:00 PM Zofran [IVP] IVP 4 mg, administered: 08/07/2016 5:19:00 PM PROTONIX [IVP] IVP 40 mg, administered: 08/07/2016 6:36:00 PM GI Cocktail [PO] PO 30 mL, administered: 08/07/2016 6:52:00 PM The following Medications were prescribed to the patient: Zofran 4 mg: Take 1 orally every six hours as needed for nausea/vomiting. Dispense ten (10). No refills. Substitution is permissible. -- Melanie Boswell, A.R.N.P. Prilosec 20 mg capsules: Take 1 capsule orally once daily. Dispense fifteen (15). No refills. Substitution is permissible. -- Melanie Boswell, A.R.N.P. Ultram 50 mg tablets: take 1-2 orally every 6 hours as needed for pain. Dispense twenty (20). No refills. Substitution is permissible. -- Melanie Boswell A.R.N.P.
--- NOTE | 2016-08-08 19:13 | ED MAR SUMMARY ---
..... Medication Administration Record [facility] [address] [place] [address] Patient: MARIA LUISA RAIN Visit ID: [id number] 46y, M Weight: 108.8 kg Height/Length: 76 in BMI: 29.2 ALLERGIES: Sudafed Given 17:19 08/07/2016 Sierra Daly R.N. Medication Administered: ZOFRAN [IVP] (ONDANSETRON HCL), Dose: 4 mg IVP over 2 minute(s), Site: #1. Medication Ordered: Zofran IV 4 mg (NOW). Given 17:20 08/07/2016 Sierra Daly R.N. Medication Administered: TORADOL [IVP], Dose: 30 mg IVP over 2 minute(s), Site: #1 right AC. Medication Ordered: Toradol IV 30 mg (NOW). Given 18:36 08/07/2016 Sierra Daly R.N. Medication Administered: PROTONIX [IVP] (PANTOPRAZOLE SODIUM), Dose: 40 mg IVP over 5 minute(s), Site: #1 right AC. Medication Ordered: Protonix IVP 40mg 40 mg (Mix in NS 10ml over 2min). Given 18:52 08/07/2016 Sierra Daly R.N. Medication Administered: GI COCKTAIL [PO] (MAGNESIUM-ALUMINUM), Dose: 30 mL PO. Medication Ordered: GI Cocktail WHITE PO 30 mL with Lidocaine Viscous Mouth/Throat 15 mL, Maalox Plus Oral 15 mL (NOW).
--- NOTE | 2016-08-08 19:13 | ED DISCHARGE INSTRUCTIONS ---
Patient: MARIA LUISA RAIN General Instructions [facility] VisitID: [id number] [place] [id number] [id number], M Registration Date/Time: 08/07/2016 Chronic abdominal pain. Chronic pancreatitis. No biliary, alcoholic, drug-induced or idiopathic pancreatitis. No pseudocyst, abscess or hyperlipidemia. INSTRUCTIONS (htn). Warnings: GENERAL WARNINGS: Return or contact your physician immediately if your condition worsens or changes unexpectedly, if not improving as expected, or if other problems arise. SPECIFICALLY, return if you develop pain in the abdomen or pelvis, fever, the inability to keep fluids down, blood in vomitus, blood in diarrhea, fainting or lightheadedness. Prescription Medications: Zofran 4 mg: Take 1 orally every six hours as needed for nausea/vomiting. Dispense ten (10). No refills. Substitution is permissible. Prilosec 20 mg capsules: Take 1 capsule orally once daily. Dispense fifteen (15). No refills. Substitution is permissible. Ultram 50 mg tablets: take 1-2 orally every 6 hours as needed for pain. Dispense twenty (20). No refills. Substitution is permissible. Follow-up: Screening today revealed the patient's blood pressure to be in the hypertensive range. The patient should follow up with a primary care provider for blood pressure management. Understanding of the discharge instructions verbalized by patient. Follow-up with: Marvin De Oliveira MD, [facility], , [facility] [place] [address] Follow up in about two days even if well. Call for an appointment. Summary of care provided to patient. Follow-up with: Pranav Broderick MD, Gastroenterology, , [address] , [place], [address]; Jose Lockhart MD, Gastroenterology, , [address] [place] [address], [address], [place], [address]; Britany Viveros MD, Gastroenteroloy, , [address] [place] [address] [address], [place] [address]; Raffaele Pinedo MD, Gastroenteroloy, , [address] [place], [place] [address]e., [address], [place], [address]; Catracho Sandhu MD, Gastroenteroloy, , [address], [place], [address] Follow up in about one week even if well. Call for an appointment. Summary of care provided to patient. ADDITIONAL INFORMATION Abdominal Pain,Uncertain Cause [Male] Based on your visit today, the exact cause of your abdominalpain is not clear. Your exam and tests do not indicate a dangerous cause at this time. However, the signs of a serious problem may take more time to appear. Although your evaluation was reassuring today, sometimes early in the course of many conditions, exam and lab tests can appear normal. Therefore, it is important for you to watch for any new symptoms or worsening of your condition. Causes It may not be obvious what caused your symptoms. Pay attention to things that do seem to make your symptoms worse or better and discuss this with your doctor when you follow up. Diagnosis The evaluation of abdominal pain in the emergency department may onlyrequire an exam by the doctor or it may include blood, urine or imaging studies, depending on many factors. Sometimes exams and tests can identify a cause but in many cases, a clear cause is not found. Further testing at follow up visits may help to suggest a clear diagnosis. Home Care Rest as much as possible until your next exam. Try to avoid any medications (unless otherwise directed by your doctor), foods, activities, or other factors that you may have contributed to your symptoms. Try to eat foods that you know that you have tolerated well in the past. Certain diets may be recommended for some conditions that cause abdominal pain. However, since the cause of your symptoms may not be clear, discuss your diet more with your primary care provider or specialist for further recommendations. Eating several small meals per day as opposed to 2 or 3 larger meals may help. Monitor closely for anything that may make your symptoms worse or better. Pay close attention to symptoms below that may indicate worsening of your condition. Follow Up and Precautions See your doctoras instructed or sooneror if your symptoms are not improving.In some cases, you may need more testing. When to Seek Medical Attention Contact your doctor or see medical attention ifany of the following occur: Pain is becoming worse You are unable to take your medications due to excessive vomiting Swelling of the abdomen Fever of 100.4F (38C) or higher, or as directed by your health care provider Blood in vomit or bowel movements (dark red or black color) Jaundice (yellow color of eyes and skin) New onset of weakness, dizziness or fainting New onset of chest, arm, back, neck or jaw pain Pancreatitis The pancreas is an organ in the left upper abdomen that secretes digestive juices into the stomach. Pancreatitis is an inflammation of the pancreas. This may occur for various causes including heavy alcohol use, gall stone blockage of the outflow duct from the pancreas, certain medicines and viral illness. Sometimes the cause of pancreatitis cannot be found. Moderate to severe illness requires being treated in the hospital. Milder attacks of pancreatitis can be treated at home. Home Care: 1) Absolutely NO ALCOHOL. 2) Rest in bed or sit up in a chair until you feel better. 3) Eat small more frequent meals rather than a few large meals each day. 4) Follow a high protein, high carbohydrate, low fat diet. 5) If you were given medicine for pain or vomiting, take it as prescribed. Follow Up with your doctor or as directed by our staff for further evaluation. Get Prompt Medical Attention if any of the following occur: -- Continued or worsening pain in the abdomen -- Repeated vomiting: unable to keep down liquids -- Dizziness, weakness or fainting -- Vomiting blood or blood in the stool (black or red color) -- Fever over 100.4 F (38.0 C) -- Severe muscle cramps or seizure -- Trouble breathing or fast breathing (over 25 breaths/minute) -- Jaundice (yellow color of the skin or eyes) Ondansetron Oral disintegrating tablet What is this medicine? ONDANSETRON (on FELICIA se alexy) is used to treat nausea and vomiting caused by chemotherapy. It is also used to prevent or treat nausea and vomiting after surgery. How should I use this medicine? These tablets are made to dissolve in the mouth. Do not try to push the tablet through the foil backing. With dry hands, peel away the foil backing and gently remove the tablet. Place the tablet in the mouth and allow it to dissolve, then swallow. While you may take these tablets with water, it is not necessary to do so. Talk to your office mail clerk regarding the use of this medicine in children. Special care may be needed. What side effects may I notice from receiving this medicine? Side effects that you should report to your doctor or health healthcare insurance sales agent as soon as possible: allergic reactions like skin rash, itching or hives, swelling of the face, lips, or tongue breathing problems dizziness fast or irregular heartbeat feeling faint or lightheaded, falls fever and chills swelling of the hands and feet tightness in the chest Side effects that usually do not require medical attention (report to your doctor or health healthcare insurance sales agent if they continue or are bothersome): constipation or diarrhea headache What may interact with this medicine? Do not take this medicine with any of the following medications: -apomorphine -cisapride -dofetilide -dronedarone -pimozide -thioridazine -ziprasidone This medicine may also interact with the following medications: -carbamazepine -phenytoin -rifampicin -tramadol -other medicines that prolong the QT interval (cause an abnormal heart rhythm) What if I miss a dose? If you miss a dose, take it as soon as you can. If it is almost time for your next dose, take only that dose. Do not take double or extra doses. Where should I keep my medicine? Keep out of the reach of children. Store between 2 and 30 degrees C (36 and 86 degrees F). Throw away any unused medicine after the expiration date. What should I tell my health care provider before I take this medicine? They need to know if you have any of these conditions: heart disease history of irregular heartbeat liver disease low levels of magnesium or potassium in the blood an unusual or allergic reaction to ondansetron, granisetron, other medicines, foods, dyes, or preservatives or trying to get breast-feeding What should I watch for while using this medicine? Check with your doctor or health healthcare insurance sales agent as soon as you can if you have any sign of an allergic reaction. Omeprazole Magnesium Gastro-resistant tablet What is this medicine? OMEPRAZOLE (oh ME pray zol) prevents the production of acid in the stomach. It is used to treat the symptoms of heartburn. You can buy this medicine without a prescription. This product is not for long-term use, unless otherwise directed by your doctor or health healthcare insurance sales agent. How should I use this medicine? Take this medicine by mouth. Follow the directions on the product label. If you are taking this medicine without a prescription, take one tablet every day. Do not use for longer than 14 days or repeat a course of treatment more often than every 4 months unless directed by a doctor or healthcare professional. Take your dose at regular intervals every 24 hours. Swallow the tablet whole with a drink of water. Do not crush, break or chew. This medicine works best if taken on an empty stomach 30 minutes before breakfast. If you are using this medicine with the prescription of your doctor or healthcare professional, follow the directions you were given. Do not take your medicine more often than directed. Talk to your office mail clerk regarding the use of this medicine in children. Special care may be needed. What side effects may I notice from receiving this medicine? Side effects that you should report to your doctor or health healthcare insurance sales agent as soon as possible: allergic reactions like skin rash, itching or hives, swelling of the face, lips, or tongue bone, muscle or joint pain breathing problems chest pain or chest tightness dark yellow or brown urine diarrhea dizziness fast, irregular heartbeat feeling faint or lightheaded fever or sore throat muscle spasm palpitations redness, blistering, peeling or loosening of the skin, including inside the mouth seizures tremors unusual bleeding or bruising unusually weak or tired yellowing of the eyes or skin Side effects that usually do not require medical attention (Report these to your doctor or health healthcare insurance sales agent if they continue or are bothersome.): constipation dry mouth headache loose stools nausea What may interact with this medicine? Do not take this medicine with any of the following medications: atazanavir clopidogrel nelfinavir This medicine may also interact with the following medications: ampicillin certain medicines for anxiety or sleep certain medicines that treat or prevent blood clots like warfarin cyclosporine diazepam digoxin disulfiram iron salts phenytoin prescription medicine for fungal or yeast infection like itraconazole, ketoconazole, voriconazole saquinavir tacrolimus What if I miss a dose? If you miss a dose, take it as soon as you can. If it is almost time for your next dose, take only that dose. Do not take double or extra doses. Where should I keep my medicine? Keep out of the reach of children. Store at room temperature between 20 and 25 degrees C (68 and 77 degrees F). Protect from light and moisture. Throw away any unused medicine after the expiration date. What should I tell my health care provider before I take this medicine? They need to know if you have any of these conditions: black or bloody stools chest pain difficulty swallowing have had heartburn for over 3 months have heartburn with dizziness, lightheadedness or sweating liver disease stomach pain unexplained weight loss vomiting with blood wheezing an unusual or allergic reaction to omeprazole, other medicines, foods, dyes, or preservatives or trying to get breast-feeding What should I watch for while using this medicine? It can take several days before your heartburn gets better. Check with your doctor or health healthcare insurance sales agent if your condition does not start to get better, or if it gets worse. Do not treat diarrhea with over the counter products. Contact your doctor if you have diarrhea that lasts more than 2 days or if it is severe and watery. Do not treat yourself for heartburn with this medicine for more than 14 days in a row. You should only use this medicine for a 2-week treatment period once every 4 months. If your symptoms return shortly after your therapy is complete, or within the 4 month time frame, call your doctor or health healthcare insurance sales agent. Tramadol Hydrochloride Oral tablet What is this medicine? TRAMADOL (TRA ma dole) is a pain reliever. It is used to treat moderate to severe pain in adults. How should I use this medicine? Take this medicine by mouth with a full glass of water. Follow the directions on the prescription label. If the medicine upsets your stomach, take it with food or milk. Do not take more medicine than you are told to take. Talk to your office mail clerk regarding the use of this medicine in children. Special care may be needed. What side effects may I notice from receiving this medicine? Side effects that you should report to your doctor or health healthcare insurance sales agent as soon as possible: allergic reactions like skin rash, itching or hives, swelling of the face, lips, or tongue breathing difficulties, wheezing confusion itching light headedness or fainting spells redness, blistering, peeling or loosening of the skin, including inside the mouth seizures Side effects that usually do not require medical attention (report to your doctor or health healthcare insurance sales agent if they continue or are bothersome): constipation dizziness drowsiness headache nausea, vomiting What may interact with this medicine? Do not take this medicine with any of the following medications: MAOIs like Carbex, Eldepryl, Marplan, Nardil, and Parnate This medicine may also interact with the following medications: alcohol or medicines that contain alcohol antihistamines benzodiazepines bupropion carbamazepine or oxcarbazepine clozapine cyclobenzaprine digoxin furazolidone linezolid medicines for depression, anxiety, or psychotic disturbances medicines for migraine headache like almotriptan, eletriptan, frovatriptan, naratriptan, rizatriptan, sumatriptan, zolmitriptan medicines for pain like pentazocine, buprenorphine, butorphanol, meperidine, nalbuphine, and propoxyphene medicines for sleep muscle relaxants naltrexone phenobarbital phenothiazines like perphenazine, thioridazine, chlorpromazine, mesoridazine, fluphenazine, prochlorperazine, promazine, and trifluoperazine procarbazine warfarin What if I miss a dose? If you miss a dose, take it as soon as you can. If it is almost time for your next dose, take only that dose. Do not take double or extra doses. Where should I keep my medicine? Keep out of the reach of children. Store at room temperature between 15 and 30 degrees C (59 and 86 degrees F). Keep container tightly closed. Throw away any unused medicine after the expiration date. What should I tell my health care provider before I take this medicine? They need to know if you have any of these conditions: brain tumor depression drug abuse or addiction head injury if you frequently drink alcohol containing drinks kidney disease or trouble passing urine liver disease lung disease, asthma, or breathing problems seizures or epilepsy suicidal thoughts, plans, or attempt; a previous suicide attempt by you or a family member an unusual or allergic reaction to tramadol, codeine, other medicines, foods, dyes, or preservatives or trying to get breast-feeding What should I watch for while using this medicine? Tell your doctor or health healthcare insurance sales agent if your pain does not go away, if it gets worse, or if you have new or a different type of pain. You may develop tolerance to the medicine. Tolerance means that you will need a higher dose of the medicine for pain relief. Tolerance is normal and is expected if you take this medicine for a long time. Do not suddenly stop taking your medicine because you may develop a severe reaction. Your body becomes used to the medicine. This does NOT mean you are addicted. Addiction is a behavior related to getting and using a drug for a non-medical reason. If you have pain, you have a medical reason to take pain medicine. Your doctor will tell you how much medicine to take. If your doctor wants you to stop the medicine, the dose will be slowly lowered over time to avoid any side effects. You may get drowsy or dizzy. Do not drive, use machinery, or do anything that needs mental alertness until you know how this medicine affects you. Do not stand or sit up quickly, especially if you are an older patient. This reduces the risk of dizzy or fainting spells. Alcohol can increase or decrease the effects of this medicine. Avoid alcoholic drinks. You may have constipation. Try to have a bowel movement at least every 2 to 3 days. If you do not have a bowel movement for 3 days, call your doctor or health healthcare insurance sales agent. Your mouth may get dry. Chewing sugarless gum or sucking hard candy, and drinking plenty of water may help. Contact your doctor if the problem does not go away or is severe. You have been given the following additional information: Abdominal Pain, Unknown Cause, (Male) Pancreatitis Ondansetron Oral disintegrating tablet Omeprazole Magnesium Gastro-resistant tablet Tramadol Hydrochloride Oral tablet (Electronically signed by Melanie Boswell A.R.N.P. 08/07/2016 19:09)
--- NOTE | 2016-08-08 19:13 | ED MAR SUMMARY ---
..... Medication Administration Record [facility] [address] [place] [address] Patient: MARIA LUISA RAIN Visit ID: [id number] 46y, M Weight: 108.8 kg Height/Length: 76 in BMI: 29.2 ALLERGIES: Sudafed Given 17:19 08/07/2016 Sierra Daly R.N. Medication Administered: ZOFRAN [IVP] (ONDANSETRON HCL), Dose: 4 mg IVP over 2 minute(s), Site: #1. Medication Ordered: Zofran IV 4 mg (NOW). Given 17:20 08/07/2016 Sierra Daly R.N. Medication Administered: TORADOL [IVP], Dose: 30 mg IVP over 2 minute(s), Site: #1 right AC. Medication Ordered: Toradol IV 30 mg (NOW). Given 18:36 08/07/2016 Sierra Daly R.N. Medication Administered: PROTONIX [IVP] (PANTOPRAZOLE SODIUM), Dose: 40 mg IVP over 5 minute(s), Site: #1 right AC. Medication Ordered: Protonix IVP 40mg 40 mg (Mix in NS 10ml over 2min). Given 18:52 08/07/2016 Sierra Daly R.N. Medication Administered: GI COCKTAIL [PO] (MAGNESIUM-ALUMINUM), Dose: 30 mL PO. Medication Ordered: GI Cocktail WHITE PO 30 mL with Lidocaine Viscous Mouth/Throat 15 mL, Maalox Plus Oral 15 mL (NOW).
--- NOTE | 2016-08-08 19:13 | ED DISCHARGE INSTRUCTIONS ---
Patient: MARIA LUISA RAIN General Instructions [facility] VisitID: [id number] [place] [id number], M Registration Date/Time: 08/07/2016 Chronic abdominal pain. Chronic pancreatitis. No biliary, alcoholic, drug-induced or idiopathic pancreatitis. No pseudocyst, abscess or hyperlipidemia. INSTRUCTIONS (htn). Warnings: GENERAL WARNINGS: Return or contact your physician immediately if your condition worsens or changes unexpectedly, if not improving as expected, or if other problems arise. SPECIFICALLY, return if you develop pain in the abdomen or pelvis, fever, the inability to keep fluids down, blood in vomitus, blood in diarrhea, fainting or lightheadedness. Prescription Medications: Zofran 4 mg: Take 1 orally every six hours as needed for nausea/vomiting. Dispense ten (10). No refills. Substitution is permissible. Prilosec 20 mg capsules: Take 1 capsule orally once daily. Dispense fifteen (15). No refills. Substitution is permissible. Ultram 50 mg tablets: take 1-2 orally every 6 hours as needed for pain. Dispense twenty (20). No refills. Substitution is permissible. Follow-up: Screening today revealed the patient's blood pressure to be in the hypertensive range. The patient should follow up with a primary care provider for blood pressure management. Understanding of the discharge instructions verbalized by patient. Follow-up with: Marvin De Oliveira MD, [facility], , [facility] [place] [address] Follow up in about two days even if well. Call for an appointment. Summary of care provided to patient. Follow-up with: Pranav Broderick MD, Gastroenterology, , [address] , [place], [address]; Jose Lockhart MD, Gastroenterology, , [address] [place] [address], [address], [place], [address]; Britany Viveros MD, [facility], , [address] [place] [address] Ave[address], [place], [address]; Raffaele Pinedo MD, Gastroenter[facility], , [address] [place], [place] [address]e., [address], [place], [address]; Catracho Sandhu MD, Gastroenter[facility]oy, , [address], [place], [address] Follow up in about one week even if well. Call for an appointment. Summary of care provided to patient. ADDITIONAL INFORMATION Abdominal Pain,Uncertain Cause [Male] Based on your visit today, the exact cause of your abdominalpain is not clear. Your exam and tests do not indicate a dangerous cause at this time. However, the signs of a serious problem may take more time to appear. Although your evaluation was reassuring today, sometimes early in the course of many conditions, exam and lab tests can appear normal. Therefore, it is important for you to watch for any new symptoms or worsening of your condition. Causes It may not be obvious what caused your symptoms. Pay attention to things that do seem to make your symptoms worse or better and discuss this with your doctor when you follow up. Diagnosis The evaluation of abdominal pain in the emergency department may onlyrequire an exam by the doctor or it may include blood, urine or imaging studies, depending on many factors. Sometimes exams and tests can identify a cause but in many cases, a clear cause is not found. Further testing at follow up visits may help to suggest a clear diagnosis. Home Care Rest as much as possible until your next exam. Try to avoid any medications (unless otherwise directed by your doctor), foods, activities, or other factors that you may have contributed to your symptoms. Try to eat foods that you know that you have tolerated well in the past. Certain diets may be recommended for some conditions that cause abdominal pain. However, since the cause of your symptoms may not be clear, discuss your diet more with your primary care provider or specialist for further recommendations. Eating several small meals per day as opposed to 2 or 3 larger meals may help. Monitor closely for anything that may make your symptoms worse or better. Pay close attention to symptoms below that may indicate worsening of your condition. Follow Up and Precautions See your doctoras instructed or sooneror if your symptoms are not improving.In some cases, you may need more testing. When to Seek Medical Attention Contact your doctor or see medical attention ifany of the following occur: Pain is becoming worse You are unable to take your medications due to excessive vomiting Swelling of the abdomen Fever of 100.4F (38C) or higher, or as directed by your health care provider Blood in vomit or bowel movements (dark red or black color) Jaundice (yellow color of eyes and skin) New onset of weakness, dizziness or fainting New onset of chest, arm, back, neck or jaw pain Pancreatitis The pancreas is an organ in the left upper abdomen that secretes digestive juices into the stomach. Pancreatitis is an inflammation of the pancreas. This may occur for various causes including heavy alcohol use, gall stone blockage of the outflow duct from the pancreas, certain medicines and viral illness. Sometimes the cause of pancreatitis cannot be found. Moderate to severe illness requires being treated in the hospital. Milder attacks of pancreatitis can be treated at home. Home Care: 1) Absolutely NO ALCOHOL. 2) Rest in bed or sit up in a chair until you feel better. 3) Eat small more frequent meals rather than a few large meals each day. 4) Follow a high protein, high carbohydrate, low fat diet. 5) If you were given medicine for pain or vomiting, take it as prescribed. Follow Up with your doctor or as directed by our staff for further evaluation. Get Prompt Medical Attention if any of the following occur: -- Continued or worsening pain in the abdomen -- Repeated vomiting: unable to keep down liquids -- Dizziness, weakness or fainting -- Vomiting blood or blood in the stool (black or red color) -- Fever over 100.4 F (38.0 C) -- Severe muscle cramps or seizure -- Trouble breathing or fast breathing (over 25 breaths/minute) -- Jaundice (yellow color of the skin or eyes) Ondansetron Oral disintegrating tablet What is this medicine? ONDANSETRON (on FELICIA se alexy) is used to treat nausea and vomiting caused by chemotherapy. It is also used to prevent or treat nausea and vomiting after surgery. How should I use this medicine? These tablets are made to dissolve in the mouth. Do not try to push the tablet through the foil backing. With dry hands, peel away the foil backing and gently remove the tablet. Place the tablet in the mouth and allow it to dissolve, then swallow. While you may take these tablets with water, it is not necessary to do so. Talk to your rubber stamps and dies supervisor regarding the use of this medicine in children. Special care may be needed. What side effects may I notice from receiving this medicine? Side effects that you should report to your doctor or health healthcare economics manager as soon as possible: allergic reactions like skin rash, itching or hives, swelling of the face, lips, or tongue breathing problems dizziness fast or irregular heartbeat feeling faint or lightheaded, falls fever and chills swelling of the hands and feet tightness in the chest Side effects that usually do not require medical attention (report to your doctor or health healthcare economics manager if they continue or are bothersome): constipation or diarrhea headache What may interact with this medicine? Do not take this medicine with any of the following medications: -apomorphine -cisapride -dofetilide -dronedarone -pimozide -thioridazine -ziprasidone This medicine may also interact with the following medications: -carbamazepine -phenytoin -rifampicin -tramadol -other medicines that prolong the QT interval (cause an abnormal heart rhythm) What if I miss a dose? If you miss a dose, take it as soon as you can. If it is almost time for your next dose, take only that dose. Do not take double or extra doses. Where should I keep my medicine? Keep out of the reach of children. Store between 2 and 30 degrees C (36 and 86 degrees F). Throw away any unused medicine after the expiration date. What should I tell my health care provider before I take this medicine? They need to know if you have any of these conditions: heart disease history of irregular heartbeat liver disease low levels of magnesium or potassium in the blood an unusual or allergic reaction to ondansetron, granisetron, other medicines, foods, dyes, or preservatives or trying to get breast-feeding What should I watch for while using this medicine? Check with your doctor or health healthcare economics manager as soon as you can if you have any sign of an allergic reaction. Omeprazole Magnesium Gastro-resistant tablet What is this medicine? OMEPRAZOLE (oh ME pray zol) prevents the production of acid in the stomach. It is used to treat the symptoms of heartburn. You can buy this medicine without a prescription. This product is not for long-term use, unless otherwise directed by your doctor or health healthcare economics manager. How should I use this medicine? Take this medicine by mouth. Follow the directions on the product label. If you are taking this medicine without a prescription, take one tablet every day. Do not use for longer than 14 days or repeat a course of treatment more often than every 4 months unless directed by a doctor or healthcare professional. Take your dose at regular intervals every 24 hours. Swallow the tablet whole with a drink of water. Do not crush, break or chew. This medicine works best if taken on an empty stomach 30 minutes before breakfast. If you are using this medicine with the prescription of your doctor or healthcare professional, follow the directions you were given. Do not take your medicine more often than directed. Talk to your rubber stamps and dies supervisor regarding the use of this medicine in children. Special care may be needed. What side effects may I notice from receiving this medicine? Side effects that you should report to your doctor or health healthcare economics manager as soon as possible: allergic reactions like skin rash, itching or hives, swelling of the face, lips, or tongue bone, muscle or joint pain breathing problems chest pain or chest tightness dark yellow or brown urine diarrhea dizziness fast, irregular heartbeat feeling faint or lightheaded fever or sore throat muscle spasm palpitations redness, blistering, peeling or loosening of the skin, including inside the mouth seizures tremors unusual bleeding or bruising unusually weak or tired yellowing of the eyes or skin Side effects that usually do not require medical attention (Report these to your doctor or health healthcare economics manager if they continue or are bothersome.): constipation dry mouth headache loose stools nausea What may interact with this medicine? Do not take this medicine with any of the following medications: atazanavir clopidogrel nelfinavir This medicine may also interact with the following medications: ampicillin certain medicines for anxiety or sleep certain medicines that treat or prevent blood clots like warfarin cyclosporine diazepam digoxin disulfiram iron salts phenytoin prescription medicine for fungal or yeast infection like itraconazole, ketoconazole, voriconazole saquinavir tacrolimus What if I miss a dose? If you miss a dose, take it as soon as you can. If it is almost time for your next dose, take only that dose. Do not take double or extra doses. Where should I keep my medicine? Keep out of the reach of children. Store at room temperature between 20 and 25 degrees C (68 and 77 degrees F). Protect from light and moisture. Throw away any unused medicine after the expiration date. What should I tell my health care provider before I take this medicine? They need to know if you have any of these conditions: black or bloody stools chest pain difficulty swallowing have had heartburn for over 3 months have heartburn with dizziness, lightheadedness or sweating liver disease stomach pain unexplained weight loss vomiting with blood wheezing an unusual or allergic reaction to omeprazole, other medicines, foods, dyes, or preservatives or trying to get breast-feeding What should I watch for while using this medicine? It can take several days before your heartburn gets better. Check with your doctor or health healthcare economics manager if your condition does not start to get better, or if it gets worse. Do not treat diarrhea with over the counter products. Contact your doctor if you have diarrhea that lasts more than 2 days or if it is severe and watery. Do not treat yourself for heartburn with this medicine for more than 14 days in a row. You should only use this medicine for a 2-week treatment period once every 4 months. If your symptoms return shortly after your therapy is complete, or within the 4 month time frame, call your doctor or health healthcare economics manager. Tramadol Hydrochloride Oral tablet What is this medicine? TRAMADOL (TRA ma dole) is a pain reliever. It is used to treat moderate to severe pain in adults. How should I use this medicine? Take this medicine by mouth with a full glass of water. Follow the directions on the prescription label. If the medicine upsets your stomach, take it with food or milk. Do not take more medicine than you are told to take. Talk to your rubber stamps and dies supervisor regarding the use of this medicine in children. Special care may be needed. What side effects may I notice from receiving this medicine? Side effects that you should report to your doctor or health healthcare economics manager as soon as possible: allergic reactions like skin rash, itching or hives, swelling of the face, lips, or tongue breathing difficulties, wheezing confusion itching light headedness or fainting spells redness, blistering, peeling or loosening of the skin, including inside the mouth seizures Side effects that usually do not require medical attention (report to your doctor or health healthcare economics manager if they continue or are bothersome): constipation dizziness drowsiness headache nausea, vomiting What may interact with this medicine? Do not take this medicine with any of the following medications: MAOIs like Carbex, Eldepryl, Marplan, Nardil, and Parnate This medicine may also interact with the following medications: alcohol or medicines that contain alcohol antihistamines benzodiazepines bupropion carbamazepine or oxcarbazepine clozapine cyclobenzaprine digoxin furazolidone linezolid medicines for depression, anxiety, or psychotic disturbances medicines for migraine headache like almotriptan, eletriptan, frovatriptan, naratriptan, rizatriptan, sumatriptan, zolmitriptan medicines for pain like pentazocine, buprenorphine, butorphanol, meperidine, nalbuphine, and propoxyphene medicines for sleep muscle relaxants naltrexone phenobarbital phenothiazines like perphenazine, thioridazine, chlorpromazine, mesoridazine, fluphenazine, prochlorperazine, promazine, and trifluoperazine procarbazine warfarin What if I miss a dose? If you miss a dose, take it as soon as you can. If it is almost time for your next dose, take only that dose. Do not take double or extra doses. Where should I keep my medicine? Keep out of the reach of children. Store at room temperature between 15 and 30 degrees C (59 and 86 degrees F). Keep container tightly closed. Throw away any unused medicine after the expiration date. What should I tell my health care provider before I take this medicine? They need to know if you have any of these conditions: brain tumor depression drug abuse or addiction head injury if you frequently drink alcohol containing drinks kidney disease or trouble passing urine liver disease lung disease, asthma, or breathing problems seizures or epilepsy suicidal thoughts, plans, or attempt; a previous suicide attempt by you or a family member an unusual or allergic reaction to tramadol, codeine, other medicines, foods, dyes, or preservatives or trying to get breast-feeding What should I watch for while using this medicine? Tell your doctor or health healthcare economics manager if your pain does not go away, if it gets worse, or if you have new or a different type of pain. You may develop tolerance to the medicine. Tolerance means that you will need a higher dose of the medicine for pain relief. Tolerance is normal and is expected if you take this medicine for a long time. Do not suddenly stop taking your medicine because you may develop a severe reaction. Your body becomes used to the medicine. This does NOT mean you are addicted. Addiction is a behavior related to getting and using a drug for a non-medical reason. If you have pain, you have a medical reason to take pain medicine. Your doctor will tell you how much medicine to take. If your doctor wants you to stop the medicine, the dose will be slowly lowered over time to avoid any side effects. You may get drowsy or dizzy. Do not drive, use machinery, or do anything that needs mental alertness until you know how this medicine affects you. Do not stand or sit up quickly, especially if you are an older patient. This reduces the risk of dizzy or fainting spells. Alcohol can increase or decrease the effects of this medicine. Avoid alcoholic drinks. You may have constipation. Try to have a bowel movement at least every 2 to 3 days. If you do not have a bowel movement for 3 days, call your doctor or health healthcare economics manager. Your mouth may get dry. Chewing sugarless gum or sucking hard candy, and drinking plenty of water may help. Contact your doctor if the problem does not go away or is severe. You have been given the following additional information: Abdominal Pain, Unknown Cause, (Male) Pancreatitis Ondansetron Oral disintegrating tablet Omeprazole Magnesium Gastro-resistant tablet Tramadol Hydrochloride Oral tablet (Electronically signed by Melanie Boswell A.R.N.P. 08/07/2016 19:09)
[2016-09-26] MEDS ORDERED: HYDROCHLOROTH12.5 MG PO (04:52)
[2016-09-26] MEDS ORDERED: LISINOPRIL10 MG PO (06:04)
[2016-09-26] MEDS ORDERED: PANTOPRAZOLE SO40 MG PO (11:53)
[2016-09-26] MEDS ORDERED: FAMOTIDINE20 MG PO (11:53)
[2016-09-26] MEDS ORDERED: NORVASC5 MG PO (17:11)
[2016-09-26] MEDS ORDERED: TRAMADOL HCL50 MG PO (18:00)
== END 2016-08-07 19:00 | disposition home or self-care (01) ==
LOC: ED SRH 16:38
DX: K86.1 Other chronic pancreatitis (principal); I10 Essential (primary) hypertension; K21.9 Gastro-esophageal reflux disease without esophagitis; Z88.8 Allergy status to other drugs, medicaments and biological substances
CPT/HCPCS: 90004; 90074; 90100; 92235; 92530; 95059

== ENCOUNTER 2016-09-10 20:22 | Emergency (ER) | payer OTHER ==
--- NOTE | 2016-09-11 01:19 | ED CLINICAL REPORT ---
Clinical Report - Physicians/Mid Levels [facility] [address] [place] [address] 09/10/2016 20:23 Patient: MARIA LUISA RAIN Time Seen: 21:15. Arrived- By private vehicle. Historian- patient. HISTORY OF PRESENT ILLNESS Chief Complaint: ABDOMINAL PAIN. It is described as burning and it is described as located in the right upper quadrant and radiating to the upper back. At its maximum, severity described as 10 / 10. When seen in the E.D., severity described as 8 / 10. Modifying factors. Not worsened by anything. Not relieved by anything. This started several days ago and is still present. It was gradual in onset and has been constant and waxing/waning. The patient has had nausea and loss of appetite. He has had vomiting. The vomiting has occurred several times. No blood-tinged emesis, coffee-grounds emesis or frankly bloody emesis. He has had diarrhea. It has been watery. No bloody or blood-tinged diarrhea. No recent travel. Similar symptoms previously: Chronically. Diagnosis: pancreatitis. REVIEW OF SYSTEMS No chills, fever, calf pain, chest pain or cough. No difficulty breathing, pedal edema, palpitations, black stools or bloody stools. No urinary problems. He has experienced sweats. All systems otherwise negative, except as recorded above. PAST HISTORY PCP - Aziza - [facility]. Problems: Abdominal Pain. Pancreatitis. Gastroesophageal Reflux Disease. Sprain. Hypertension. Additional Surgeries: Ankle rt, hardware. Right hand surgery. Medications: Lisinopril Oral. Allergies: Sudafed.(vomiting). SOCIAL HISTORY Former smoker, end date 2007. No alcohol use or drug use. FAMILY HISTORY Heart disease in first-degree relative (sibling). mother with chronic pancreatitis. ADDITIONAL NOTES The nursing notes have been reviewed. PHYSICAL EXAM Vital Signs: 09/10/2016 21:00 BP: 150/95. HR: 96. RR: 24. O2 saturation: 100%. Temp: 98.8 F. Have been reviewed. Appearance: Alert. Eyes: Pupils equal, round and reactive to light. ENT: Pharynx normal. Neck: Normal inspection. Neck supple. CVS: Normal heart rate and rhythm. Heart sounds normal. Respiratory: No respiratory distress. Breath sounds normal. Abdomen: Soft and nontender. Bowel sounds normal. No organomegaly. No mass. Back: Normal inspection. Skin: Skin warm and dry. Normal skin color. Normal skin turgor. Extremities: Extremities exhibit normal ROM. No lower extremity edema. LABS, X-RAYS, AND EKG Laboratory Tests: UA-Culture if indicated: (JOLIE: 09/10/2016 22:55) ( [facility] [place] 09/10/2016 23:10) Final results Test Result Flag Units (Reference) URINE COLOR YELLOW URINE APPEARANCE CLEAR URINE GLUCOSE NEGATIVE (NEGATIVE) URINE BILIRUBIN NEGATIVE (NEGATIVE) URINE KETONE NEGATIVE (NEGATIVE) URINE SPECIFIC GRAVITY 1.015 (1.010-1.030) URINE PH 6.0 (5.0-8.0) URINE PROTEIN NEGATIVE (NEGATIVE) URINE UROBILINOGEN 1.0 EU/dL (0.2-1.0) URINE NITRITE NEGATIVE (NEGATIVE) URINE BLOOD 1+ (NEGATIVE) URINE LEUK ESTERASE NEGATIVE (NEGATIVE) URINE RBC 0-1 rbc/hpf (0-1) URINE WBC 0-1 wbc/hpf (0-1) URINE EPITHELIAL CELLS 0-1 EPI/hpf (0-5) URINE BACTERIA NONE SEEN (NONE SEEN) URINE COMMENT CULT NOT INDICATED URINE CULTURES ARE SET-UP BASED ON THE FOLLOWING CRITERIA:POSITIVE NITRITEPOSITIVE LEUKOCYTE ESTERASEGREATER THAN 10 WHITE BLOOD CELLSMODERATE (2+) OR GREATER BACTERIA CBC w Diff: (JOLIE: 09/10/2016 21:28) ( [facility] 09/10/2016 21:44) Final results Test Result Flag Units (Reference) WHITE BLOOD COUNT 8.3 K/uL (4.5-11.5) RED BLOOD COUNT 4.92 M/uL (4.50-5.90) HEMOGLOBIN 13.9 gm/dL (13.5-17.5) HEMATOCRIT 41.4 % (41.0-53.0) MEAN CELL VOLUME 84 fL (80-100) MEAN CORPUSCULAR HGB 28 pg (26-34) MEAN CORPUSCULAR HGB CONC 34 g/dL (31-37) RED CELL DISTRIBUTION WIDTH 13.9 % (11.6-14.8) PLATELET COUNT 189 K/uL (150-400) NEUTROPHIL % 65.7 % (50-75) LYMPH % 25.7 % (25-40) MONO % 5.8 % (3-14) EOSINOPHIL % 2.2 % (0-4) BASOPHIL % 0.6 % (0-2) Urine Drug Screen: (JOLIE: 09/10/2016 22:55) ( [facility] [place] 09/10/2016 23:16) Final results Test Result Flag Units (Reference) AMPHETAMINE/METHAMPHETAMINE NEGATIVE (NEGATIVE) BARBITURATE NEGATIVE (NEGATIVE) BENZODIAZEPINE NEGATIVE (NEGATIVE) CANNABINOID POSITIVE H (NEGATIVE) COCAINE NEGATIVE (NEGATIVE) ECSTASY NEGATIVE (NEGATIVE) METHADONE NEGATIVE (NEGATIVE) OPIATE NEGATIVE (NEGATIVE) The urine drug screen is a qualitative screening test fordrug overdose and abuse. All screen results should beconsidered as presumptive.Drugs screened for are as follows:BenzodiazepinesCocaineAmphetamines/MetamphetaminesTHC (Tetrahydrocannabinol)OpiatesBarbituratesEcstasyMethadonePositive results are unconfirmed. For confirmation, notifythe lab for the specimen to be sent to the reference lab.All confirmations must be performed by a differentmethodology.The ingestion of natural herbal and plant productscontaining Ephedra/Ephedra metabolites can produce in urineone or more substances capable of cross reacting withamphetamine/methamphetamine immunoassays. These testsprovide a preliminary result only. A more specificalternative chemical method must be used to obtain aconfirmed analytical result. CMP: (JOLIE: 09/10/2016 21:28) ( [facility] 09/10/2016 21:56) Final results Test Result Flag Units (Reference) GLUCOSE 113 H mg/dL (70-110) BUN 16 mg/dL (7-18) CREATININE 1.1 mg/dL (0.6-1.3) Estimated GFR >60 mL/min Estimated GFR- >60 mL/min Note: Persistent reduction over 3 months in eGFR<60 mL/min/1.73 m2 defines CKD. Patients with eGFR values>=60 mL/min/1.73 m2 may also have CKD if evidence ofpersistent proteinuria. Additional information may be foundat www.kidney.org. SODIUM 139 mmol/L (136-145) POTASSIUM 3.1 L mmol/L (3.5-5.1) CHLORIDE 104 mmol/L (98-107) CARBON DIOXIDE 24 mmol/L (21-32) CALCIUM 8.8 mg/dL (8.5-10.1) TOTAL PROTEIN 7.6 g/dL (6.4-8.2) ALBUMIN 3.9 g/dL (3.3-5.0) BILIRUBIN, TOTAL 0.8 mg/dL (0.0-1.0) ALKALINE PHOSPHATASE 84 U/L (46-116) AST (SGOT) 29 U/L (15-37) ALT (SGPT) 53 U/L (12-78) LIPASE 189 U/L (73-393) AMYLASE 65 U/L (25-115) . PROGRESS AND PROCEDURES Course of Care: 01:15 09/11/16. I reviewed the results of a CT abdomen and pelvis that was performed on 09/10/2016 at [facility]. This was an unremarkable study. Patient/family counseled. Old medical records reviewed. Disposition: Discharged. Condition: stable. CLINICAL IMPRESSION Chronic abdominal pain. Hypertension. Hypokalemia INSTRUCTIONS Drink plenty of fluids. Warnings: Further evaluation is necessary. GENERAL WARNINGS: Return or contact your physician immediately if your condition worsens or changes unexpectedly, if not improving as expected, or if other problems arise. Prescription Medications: Pepcid 20 mg tablets: Take 1 orally every 12 hours. Dispense thirty (30). No refills. Substitution is permissible. HCTZ 25 mg: Take 1 orally every 24 hours. Dispense fifteen (15). No refills. Understanding of the discharge instructions verbalized by patient. Follow-up with: [facility], , , [address], [facility], [id number] Follow up Friday in five days. Call for an appointment. (Electronically signed by Thang Colorado MD 09/11/2016 8:25)
--- NOTE | 2016-09-11 01:19 | ED CLINICAL REPORT ---
Clinical Report - Physicians/Mid Levels [facility] [address] [place] [address] 09/10/2016 20:23 Patient: MARIA LUISA RAIN Time Seen: 21:15. Arrived- By private vehicle. Historian- patient. HISTORY OF PRESENT ILLNESS Chief Complaint: ABDOMINAL PAIN. It is described as burning and it is described as located in the right upper quadrant and radiating to the upper back. At its maximum, severity described as 10 / 10. When seen in the E.D., severity described as 8 / 10. Modifying factors. Not worsened by anything. Not relieved by anything. This started several days ago and is still present. It was gradual in onset and has been constant and waxing/waning. The patient has had nausea and loss of appetite. He has had vomiting. The vomiting has occurred several times. No blood-tinged emesis, coffee-grounds emesis or frankly bloody emesis. He has had diarrhea. It has been watery. No bloody or blood-tinged diarrhea. No recent travel. Similar symptoms previously: Chronically. Diagnosis: pancreatitis. REVIEW OF SYSTEMS No chills, fever, calf pain, chest pain or cough. No difficulty breathing, pedal edema, palpitations, black stools or bloody stools. No urinary problems. He has experienced sweats. All systems otherwise negative, except as recorded above. PAST HISTORY PCP - Aziza - [facility]. Problems: Abdominal Pain. Pancreatitis. Gastroesophageal Reflux Disease. Sprain. Hypertension. Additional Surgeries: Ankle rt, hardware. Right hand surgery. Medications: Lisinopril Oral. Allergies: Sudafed.(vomiting). SOCIAL HISTORY Former smoker, end date 2007. No alcohol use or drug use. FAMILY HISTORY Heart disease in first-degree relative (sibling). mother with chronic pancreatitis. ADDITIONAL NOTES The nursing notes have been reviewed. PHYSICAL EXAM Vital Signs: 09/10/2016 21:00 BP: 150/95. HR: 96. RR: 24. O2 saturation: 100%. Temp: 98.8 F. Have been reviewed. Appearance: Alert. Eyes: Pupils equal, round and reactive to light. ENT: Pharynx normal. Neck: Normal inspection. Neck supple. CVS: Normal heart rate and rhythm. Heart sounds normal. Respiratory: No respiratory distress. Breath sounds normal. Abdomen: Soft and nontender. Bowel sounds normal. No organomegaly. No mass. Back: Normal inspection. Skin: Skin warm and dry. Normal skin color. Normal skin turgor. Extremities: Extremities exhibit normal ROM. No lower extremity edema. LABS, X-RAYS, AND EKG Laboratory Tests: UA-Culture if indicated: (JOLIE: 09/10/2016 22:55) ( [facility] 09/10/2016 23:10) Final results Test Result Flag Units (Reference) URINE COLOR YELLOW URINE APPEARANCE CLEAR URINE GLUCOSE NEGATIVE (NEGATIVE) URINE BILIRUBIN NEGATIVE (NEGATIVE) URINE KETONE NEGATIVE (NEGATIVE) URINE SPECIFIC GRAVITY 1.015 (1.010-1.030) URINE PH 6.0 (5.0-8.0) URINE PROTEIN NEGATIVE (NEGATIVE) URINE UROBILINOGEN 1.0 EU/dL (0.2-1.0) URINE NITRITE NEGATIVE (NEGATIVE) URINE BLOOD 1+ (NEGATIVE) URINE LEUK ESTERASE NEGATIVE (NEGATIVE) URINE RBC 0-1 rbc/hpf (0-1) URINE WBC 0-1 wbc/hpf (0-1) URINE EPITHELIAL CELLS 0-1 EPI/hpf (0-5) URINE BACTERIA NONE SEEN (NONE SEEN) URINE COMMENT CULT NOT INDICATED URINE CULTURES ARE SET-UP BASED ON THE FOLLOWING CRITERIA:POSITIVE NITRITEPOSITIVE LEUKOCYTE ESTERASEGREATER THAN 10 WHITE BLOOD CELLSMODERATE (2+) OR GREATER BACTERIA CBC w Diff: (JOLIE: 09/10/2016 21:28) ( [facility] 09/10/2016 21:44) Final results Test Result Flag Units (Reference) WHITE BLOOD COUNT 8.3 K/uL (4.5-11.5) RED BLOOD COUNT 4.92 M/uL (4.50-5.90) HEMOGLOBIN 13.9 gm/dL (13.5-17.5) HEMATOCRIT 41.4 % (41.0-53.0) MEAN CELL VOLUME 84 fL (80-100) MEAN CORPUSCULAR HGB 28 pg (26-34) MEAN CORPUSCULAR HGB CONC 34 g/dL (31-37) RED CELL DISTRIBUTION WIDTH 13.9 % (11.6-14.8) PLATELET COUNT 189 K/uL (150-400) NEUTROPHIL % 65.7 % (50-75) LYMPH % 25.7 % (25-40) MONO % 5.8 % (3-14) EOSINOPHIL % 2.2 % (0-4) BASOPHIL % 0.6 % (0-2) Urine Drug Screen: (JOLIE: 09/10/2016 22:55) ( [facility] 09/10/2016 23:16) Final results Test Result Flag Units (Reference) AMPHETAMINE/METHAMPHETAMINE NEGATIVE (NEGATIVE) BARBITURATE NEGATIVE (NEGATIVE) BENZODIAZEPINE NEGATIVE (NEGATIVE) CANNABINOID POSITIVE H (NEGATIVE) COCAINE NEGATIVE (NEGATIVE) ECSTASY NEGATIVE (NEGATIVE) METHADONE NEGATIVE (NEGATIVE) OPIATE NEGATIVE (NEGATIVE) The urine drug screen is a qualitative screening test fordrug overdose and abuse. All screen results should beconsidered as presumptive.Drugs screened for are as follows:BenzodiazepinesCocaineAmphetamines/MetamphetaminesTHC (Tetrahydrocannabinol)OpiatesBarbituratesEcstasyMethadonePositive results are unconfirmed. For confirmation, notifythe lab for the specimen to be sent to the reference lab.All confirmations must be performed by a differentmethodology.The ingestion of natural herbal and plant productscontaining Ephedra/Ephedra metabolites can produce in urineone or more substances capable of cross reacting withamphetamine/methamphetamine immunoassays. These testsprovide a preliminary result only. A more specificalternative chemical method must be used to obtain aconfirmed analytical result. CMP: (JOLIE: 09/10/2016 21:28) ( [facility] 09/10/2016 21:56) Final results Test Result Flag Units (Reference) GLUCOSE 113 H mg/dL (70-110) BUN 16 mg/dL (7-18) CREATININE 1.1 mg/dL (0.6-1.3) Estimated GFR >60 mL/min Estimated GFR- >60 mL/min Note: Persistent reduction over 3 months in eGFR<60 mL/min/1.73 m2 defines CKD. Patients with eGFR values>=60 mL/min/1.73 m2 may also have CKD if evidence ofpersistent proteinuria. Additional information may be foundat www.kidney.org. SODIUM 139 mmol/L (136-145) POTASSIUM 3.1 L mmol/L (3.5-5.1) CHLORIDE 104 mmol/L (98-107) CARBON DIOXIDE 24 mmol/L (21-32) CALCIUM 8.8 mg/dL (8.5-10.1) TOTAL PROTEIN 7.6 g/dL (6.4-8.2) ALBUMIN 3.9 g/dL (3.3-5.0) BILIRUBIN, TOTAL 0.8 mg/dL (0.0-1.0) ALKALINE PHOSPHATASE 84 U/L (46-116) AST (SGOT) 29 U/L (15-37) ALT (SGPT) 53 U/L (12-78) LIPASE 189 U/L (73-393) AMYLASE 65 U/L (25-115) . PROGRESS AND PROCEDURES Course of Care: 01:15 09/11/16. I reviewed the results of a CT abdomen and pelvis that was performed on 09/10/2016 at [facility] [place]. This was an unremarkable study. Patient/family counseled. Old medical records reviewed. Disposition: Discharged. Condition: stable. CLINICAL IMPRESSION Chronic abdominal pain. Hypertension. Hypokalemia INSTRUCTIONS Drink plenty of fluids. Warnings: Further evaluation is necessary. GENERAL WARNINGS: Return or contact your physician immediately if your condition worsens or changes unexpectedly, if not improving as expected, or if other problems arise. Prescription Medications: Pepcid 20 mg tablets: Take 1 orally every 12 hours. Dispense thirty (30). No refills. Substitution is permissible. HCTZ 25 mg: Take 1 orally every 24 hours. Dispense fifteen (15). No refills. Understanding of the discharge instructions verbalized by patient. Follow-up with: [facility], , , [address], [facility], [id number] Follow up Friday in five days. Call for an appointment. (Electronically signed by Thang Colorado MD 09/11/2016 8:25)
--- NOTE | 2016-09-11 01:19 | ED ORDER SUMMARY ---
..... Patient: MARIA LUISA RAIN OrderSheet [facility] VisitID: [id number] [place] [address] 46y, M Registration Date/Time: 09/10/2016 ORDER SHEET Weight: 104.3 kg Allergies: Sudafed GENERAL ORDERS: CBC w Diff Urgent (21:16 09/10/2016 Jules MANCILLA) (Ack 21:17 CHagtico [facility] [employer] [facility]) CMP Urgent (21:16 09/10/2016 Jules MANCILLA) (Ack 21:17 Ariela [facility] [employer]) Amylase Urgent (21:16 09/10/2016 Jules MANCILLA) (Ack 21:17 [facility]ela [facility] [employer]) Lipase Urgent (21:16 09/10/2016 Jules MANCILLA) (Ack 21:17 [facility] [employer]) UA-Culture if indicated Urgent (21:16 09/10/2016 Jules MANCILLA) (Ack 21:17 Ariela [facility] [employer]) Urine Drug Screen Urgent (22:36 09/10/2016 Jules MANCILLA) (Ack 22:42 Ariela [facility] [employer]) CT Abd/Pel w Cont (No) (See report) Urgent (22:48 09/10/2016 Jules MANCILLA) (Cancelled: Other23:00 Jules MANCILLA) MEDICATION ORDERS: KCl PO 20 meq (NOW) (22:48 09/10/2016 Jules MANCILLA) (Ack 22:51 Juliano) (23:00 EBonham) Clonidine PO 0.2 mg (NOW) (22:50 09/10/2016 Jules MANCILLA) (Ack 22:51 Juliano) (23:00 EBonham) Acetaminophen PO 1,000 mg (NOW) (01:14 09/11/2016 Jules MANCILLA) (1:15 Juliano) IV FLUIDS: IV NS : initial bolus 500 mL (1000 mL/hr), then 125 mL/hr for 4h (NOW); Urgent (21:16 09/10/2016 Jules MANCILLA) (21:37 EBonham) Dilaudid IV 0.5 mg (HIGH ALERT MEDICATION, NOW) (22:48 09/10/2016 Jules MANCILLA) (Ack 22:51 Juliano) (22:59 Juliano) Zofran IV 4 mg (NOW) (22:48 09/10/2016 Jules MANCILLA) (Ack 22:51 Juliano) (22:59 Juliano) Protonix IVP 40mg 40 mg (Mix in NS 10ml over 2min) (23:45 09/10/2016 Jules MANCILLA) (0:04 Juliano) ORDER SHEET NOTES: [Electronically signed by Brooke Berrios (:09/11/2016)] [Electronically signed by Thang Colorado MD (08:25 09/11/2016)] [Electronically locked/signed by Brooke Berrios (09/11/2016)]
--- NOTE | 2016-09-11 01:19 | ED ORDER SUMMARY ---
..... Patient: MARIA LUISA RAIN OrderSheet [facility] VisitID: [id number] [place] [address] 46y, M Registration Date/Time: 09/10/2016 ORDER SHEET Weight: 104.3 kg Allergies: Sudafed GENERAL ORDERS: CBC w Diff Urgent (21:16 09/10/2016 Jules MANCILLA) (Ack 21:17 CHagtico [facility] [employer]) CMP Urgent (21:16 09/10/2016 Jules MANCILLA) (Ack 21:17 Ariela [facility] [employer]) Amylase Urgent (21:16 09/10/2016 Jules MANCILLA) (Ack 21:17 Ariela [facility] [employer]) Lipase Urgent (21:16 09/10/2016 Jules MANCILLA) (Ack 21:17 Ariela [facility] [employer]) UA-Culture if indicated Urgent (21:16 09/10/2016 Jules MANCILLA) (Ack 21:17 Ariela [facility] [employer]) Urine Drug Screen Urgent (22:36 09/10/2016 Jules MANCILLA) (Ack 22:42 Ariela [facility] [employer]) CT Abd/Pel w Cont (No) (See report) Urgent (22:48 09/10/2016 Jules MANCILLA) (Cancelled: Other23:00 Jules MANCILLA) MEDICATION ORDERS: KCl PO 20 meq (NOW) (22:48 09/10/2016 Jules MANCILLA) (Ack 22:51 Juliano) (23:00 EBonham) Clonidine PO 0.2 mg (NOW) (22:50 09/10/2016 Jules MANCILLA) (Ack 22:51 Juliano) (23:00 EBonham) Acetaminophen PO 1,000 mg (NOW) (01:14 09/11/2016 Jules MANCILLA) (1:15 Juliano) IV FLUIDS: IV NS : initial bolus 500 mL (1000 mL/hr), then 125 mL/hr for 4h (NOW); Urgent (21:16 09/10/2016 Jules MANCILLA) (21:37 EBonham) Dilaudid IV 0.5 mg (HIGH ALERT MEDICATION, NOW) (22:48 09/10/2016 Jules MANCILLA) (Ack 22:51 Juliano) (22:59 Juliano) Zofran IV 4 mg (NOW) (22:48 09/10/2016 Jules MANCILLA) (Ack 22:51 Juliano) (22:59 Juliano) Protonix IVP 40mg 40 mg (Mix in NS 10ml over 2min) (23:45 09/10/2016 Jules MANCILLA) (0:04 Juliano) ORDER SHEET NOTES: [Electronically signed by Brooke Berrios (:09/11/2016)] [Electronically signed by Thang Colorado MD (08:25 09/11/2016)] [Electronically locked/signed by Brooke Berrios (09/11/2016)]
--- NOTE | 2016-09-11 01:19 | ED NURSING NOTES ---
Clinical Report - Nurses [facility] [address] [place] [address] 09/10/2016 20:23 Patient: MARIA LUISA RAIN TRIAGE Triage time 2049. Acuity: LEVEL 3. Chief Complaint: ABDOMINAL PAIN, NAUSEA and VOMITING and (headache). Alert. --21:04 Brooke Berrios 21:00 09/10/16. BP: 150/95. HR: 96. RR: 24. O2 saturation: 100%. Temp: 98.8 F. Pain level now 8/10. --21:04 Brooke Berrios. Weight: 104.3 kg. Height/Length: 76 inches. BMI: 28. --21:00 Brooke Berrios. Medications None. --21:02 Brooke Berrios. Medication/allergy information source: the patient. --21:04 Brooke Berrios. Allergies Sudafed.(vomiting) --21:02 Brooke Berrios. History Arrived by private vehicle. Historian: patient. Unaccompanied. Onset. (4 days ago). ( Pt is a poor historian, pt sts he has had a headache x 4 days, he also sts he is vomiting and having problems with acid, sts a diagnosis of pancreatitis 9 years ago and gastro bleeding, sts was at [facility] for a test with contrast, pt cannot recall much detail and cannot remember his meds,). --21:04 Brooke Berrios. PROBLEMS: Abdominal Pain. Pancreatitis. Gastroesophageal Reflux Disease. Sprain. Hypertension. --21:03 Brooke Berrios. ADDITIONAL SURGERIES: Ankle rt, hardware. Right hand surgery. --21:03 Brooke Berrios. Interventions ID band on patient. To treatment room. --21:04 Brooke Berrios. PHYSICAL ASSESSMENT Ambulatory to room. Patient gowned. GENERAL / NEURO / PSYCH: Alert. Oriented X 4. Appears anxious. (rapid speech). HEENT: Mucous membranes are pink. RESPIRATORY: Respirations not labored. Breath sounds within normal limits. CVS: Normal sinus rhythm noted. Capillary refill less than 2 seconds. GI / : The patient has had nausea. Emesis noted. Abdominal tenderness. Bowel sounds within normal limits. SKIN: Skin is warm and dry. --21:04 Brooke Berrios. NURSING PROGRESS NOTES Patient gowned. Reassurance given. Call light placed in reach. Bed placed in lowest position. Brakes of bed on. Patient ready for evaluation- chart flagged. --21:05 Brooke Berrios 21:26 09/10/2016 Site #1 started via IV in the right antecubital space with an 20g angiocath; one attempt. Blood drawn: rainbow set. Labeled in the presence of the patient and sent to the lab. Saline lock flushed with 10 mL saline. --21:36 Stew Sellers R.N. 21:37 09/10/2016 Started bag #1 1000 mL IV Fluids IV NS (Saline); bolus of 500 mL over 1 hour(s) then at 125 mL/hr over 4 hour(s) via site #1 --21:37 Brooke Berrios 22:59 09/10/2016 Dilaudid (HYDROmorphone HCl PF) IVP 0.5 mg given. via site #1. Allergies verified, confirmed 5 rights and sedative warning given to the patient. IVP given by RN. --22:59 Brooke Berrios 22:59 09/10/2016 Zofran (Ondansetron HCl) IVP 4 mg given. via site #1. Allergies verified and confirmed 5 rights. IV patency established. IV site checked: no pain, redness, or swelling. IV flushed thoroughly pre- and post-medication administration. IVP given by RN. --22:59 Brooke Berrios 23:00 09/10/2016 KCL (Potassium Chloride ER) PO 20 meq given. Allergies verified and confirmed 5 rights. --23:00 Brooke Berrios 23:00 09/10/2016 Clonidine PO 0.2 mg given. Allergies verified and confirmed 5 rights. --23:01 Brooke Berrios 00:04 09/11/2016 PROTONIX (Pantoprazole Sodium) IVP 40 mg given. via site #1. Allergies verified and confirmed 5 rights. IV patency established. IV site checked: no pain, redness, or swelling. IV flushed thoroughly pre- and post-medication administration. IVP given by RN. --00:04 Brooke Berrios 22:30 09/10/16. BP: 193/86. HR: 70. --00:29 Brooke Berrios 00:29 09/11/16. BP: 171/99. HR: 68. --00:29 Brooke Berrios Reassessment after medication administered. He is calm and has had no adverse reaction. Overall patient status is the same- he states feels the same. --00:30 Brooke Berrios ( Waiting to get CT results from as pt just had CT there today). --00:30 Brooke Berrios 01:15 09/11/2016 Acetaminophen (APAP) PO 1000 mg given. Allergies verified and confirmed 5 rights. --01:15 Brooke Berrios 01:15 09/11/2016 IV Fluids IV NS Discontinued: infused. Total amount infused: 500 mL. --01:15 Brooke Berrios. DISPOSITION / DISCHARGE Departure time: 0125. Condition at departure: improved and stable. No learning barriers present. Discharge instructions provided and reviewed with the patient. Reviewed medication(s). Reviewed referrals. Patient verbalized understanding. Written instructions provided in Georgian. The patient was discharged by the physician. He was discharged home and unaccompanied at time of discharge. He left the Emergency Department ambulatory and via private vehicle. Patient driving. --01:20 Brooke Berrios 01:19 09/11/16. BP: 145/85. HR: 78. RR: 16. O2 saturation: 98%. --01:20 Brooke Berrios. Locked/Released at 09/11/2016 1:24 by Brooke Berrios,
--- NOTE | 2016-09-11 08:25 | ED MED RECONCILIATION SUMMARY ---
Patient: MARIA LUISA RAIN Medication Reconciliation Report [facility] VisitID: [id number] [address] [place] [address] 46y, M Registration Date/Time: 09/10/2016 Weight: 104.3 kg Height/Length: 76 in. BMI: 28.0 ALLERGIES: Sudafed The patient's Home Medications are listed below: THE FOLLOWING MEDICATIONS NEED TO BE RECONCILED: Lisinopril Oral The source(s) of the original Home Medication information: patient The following Medications were given to the patient in the Emergency Department: IV NS IV Fluids bolus 500 mL over 1 hour(s), then 125 mL/hr, administered: 09/10/2016 9:37:00 PM Dilaudid [IVP] IVP 0.5 mg, administered: 09/10/2016 10:59:00 PM Zofran [IVP] IVP 4 mg, administered: 09/10/2016 10:59:00 PM KCL [PO] PO 20 meq, administered: 09/10/2016 11:00:00 PM Clonidine [PO] PO 0.2 mg, administered: 09/10/2016 11:00:00 PM PROTONIX [IVP] IVP 40 mg, administered: 09/11/2016 12:04:00 AM Acetaminophen [PO] PO 1000 mg, administered: 09/11/2016 1:15:00 AM The following Medications were prescribed to the patient: Pepcid 20 mg tablets: Take 1 orally every 12 hours. Dispense thirty (30). No refills. Substitution is permissible. -- Thang Colorado MD HCTZ 25 mg: Take 1 orally every 24 hours. Dispense fifteen (15). No refills. -- Thang Colorado MD
--- NOTE | 2016-09-11 08:25 | ED DISCHARGE INSTRUCTIONS ---
Patient: MARIA LUISA RAIN General Instructions [facility] VisitID: [id number] [address] [place] [address] 46y, M Registration Date/Time: 09/10/2016 Chronic abdominal pain. Hypertension. Hypokalemia INSTRUCTIONS Drink plenty of fluids. Warnings: Further evaluation is necessary. GENERAL WARNINGS: Return or contact your physician immediately if your condition worsens or changes unexpectedly, if not improving as expected, or if other problems arise. Prescription Medications: Pepcid 20 mg tablets: Take 1 orally every 12 hours. Dispense thirty (30). No refills. Substitution is permissible. HCTZ 25 mg: Take 1 orally every 24 hours. Dispense fifteen (15). No refills. Understanding of the discharge instructions verbalized by patient. Follow-up with: [facility], , , [address], , [place], [id number] Follow up Friday in five days. Call for an appointment. ADDITIONAL INFORMATION Abdominal Pain,Uncertain Cause [Male] Based on your visit today, the exact cause of your abdominalpain is not clear. Your exam and tests do not indicate a dangerous cause at this time. However, the signs of a serious problem may take more time to appear. Although your evaluation was reassuring today, sometimes early in the course of many conditions, exam and lab tests can appear normal. Therefore, it is important for you to watch for any new symptoms or worsening of your condition. Causes It may not be obvious what caused your symptoms. Pay attention to things that do seem to make your symptoms worse or better and discuss this with your doctor when you follow up. Diagnosis The evaluation of abdominal pain in the emergency department may onlyrequire an exam by the doctor or it may include blood, urine or imaging studies, depending on many factors. Sometimes exams and tests can identify a cause but in many cases, a clear cause is not found. Further testing at follow up visits may help to suggest a clear diagnosis. Home Care Rest as much as possible until your next exam. Try to avoid any medications (unless otherwise directed by your doctor), foods, activities, or other factors that you may have contributed to your symptoms. Try to eat foods that you know that you have tolerated well in the past. Certain diets may be recommended for some conditions that cause abdominal pain. However, since the cause of your symptoms may not be clear, discuss your diet more with your primary care provider or specialist for further recommendations. Eating several small meals per day as opposed to 2 or 3 larger meals may help. Monitor closely for anything that may make your symptoms worse or better. Pay close attention to symptoms below that may indicate worsening of your condition. Follow Up and Precautions See your doctoras instructed or sooneror if your symptoms are not improving.In some cases, you may need more testing. When to Seek Medical Attention Contact your doctor or see medical attention ifany of the following occur: Pain is becoming worse You are unable to take your medications due to excessive vomiting Swelling of the abdomen Fever of 100.4F (38C) or higher, or as directed by your health care provider Blood in vomit or bowel movements (dark red or black color) Jaundice (yellow color of eyes and skin) New onset of weakness, dizziness or fainting New onset of chest, arm, back, neck or jaw pain Hypertension, Out Of Control (Established) Your blood pressure was unusually high today. This can occur as a result of missing doses of your blood pressure medicine. Some asthma inhalers, decongestants, diet pills, and street drugs such as cocaine and amphetamine can worsen hypertension. An increase in body weight, increase in salt intake, smoking, and caffeine are other causes. Emotional upset or acute pain can cause a sudden rapid rise in blood pressure which may return to normal after a period of rest. A normal blood pressure is less than 140/90. The first (top) number is the systolic pressure. The second (bottom) number is the diastolic pressure. Hypertension exists when either the top number is 140 or higher, OR the bottom number is 90 or higher on repeated measurements. Home Care: All patients with high blood pressure should do the following to lower their pressure. If you are on blood pressure medicines, then these methods may reduce or eliminate your need for medicines in the future. Begin a weight-loss program if you are overweight. Reduce your salt intake. Avoid high-salt foods (olives, pickles, smoked meats, salted potato chips, etc.). Do not add salt to your food at the table. Use only small amounts of salt when cooking. Begin an exercise program. Discuss with your doctor what type of exercise program would be best for you. It doesnt have to be difficult. Even brisk walking for 20 minutes3 times a week is a good form of exercise. Avoid medicines which contain heart stimulants. This includes many cold and sinus decongestant pills and sprays as well as diet pills. Check the warnings about hypertension on the label. Stimulants such as amphetamine or cocaine could be lethal for someone with hypertension. Never take these. Limit your caffeine intake or switch to decaf. Stop smoking. If you are a long-time smoker, this can be hard. Enroll in a stop-smoking program to improve your chance of success. Talk to your physician about ways to improve your chance of success. Learning how to handle stress better is an important part of any program to lower blood pressure. Learn about relaxation methods such as meditation, yoga, or biofeedback. If medicines were prescribed, take them exactly as directed. Missing doses may cause your blood pressure to get out of control. Consider buying an automatic blood pressure machine (available at many pharmacies). Use this to monitor your blood pressure and report to your doctor. Follow Up: Regular visits to your own doctor for blood pressure checks and medicine adjustment is an important part of your care. Make a follow-up appointment as directed by our staff. Get Prompt Medical Attention if any of the following occur: Chest, arm, shoulder, neck, or upper back pain Shortness of breath Severe headache Throbbing or rushing sound in the ears Nosebleed Extreme drowsiness, confusion, or fainting Dizziness or vertigo (dizziness with spinning sensation) Weakness of an arm or leg or one side of the face Difficulty with speech or vision Hypokalemia Hypokalemia means a low level of potassium in the blood. This most often occurs in patients who take diuretics (water pills). It can also occur due to severe vomiting or diarrhea. A mild case usually causes no symptoms. It is only found with blood testing. More severe potassium loss causes generalized weakness, muscle or abdominal cramping, heart palpitations (rapid or irregular heartbeats) and low blood pressure. Home Care: 1) Take any potassium supplements prescribed. 2) Eat foods rich in potassium. The highest amount is found in artichoke, baked potatoes, spinach, cantaloupe, honeydew melon, cod, halibut, salmon, and scallops. White, red, or jennings beans are also very good sources. A modest amount is found in orange juice, bananas, carrots, and tomato juice. 3) Certain types of diuretics (water pills), such as Lasix (furosemide), require that you take potassium supplements for as long as you take the diuretic pills. If you are taking a diuretic, discuss the need for potassium supplements with your doctor. Follow Up with your doctor for a repeat blood test within the next week or as advised by our staff. Get Prompt Medical Attention if any of the following occur: -- Increased weakness -- Feeling dizzy -- Irregular heartbeat, extra beats or very fast heart rate -- Fainting spell Famotidine Oral tablet What is this medicine? FAMOTIDINE (ashleigh mccarty) is a type of antihistamine that blocks the release of stomach acid. It is used to treat stomach or intestinal ulcers. It can also relieve heartburn from acid reflux. How should I use this medicine? Take this medicine by mouth with a glass of water. Follow the directions on the prescription label. If you only take this medicine once a day, take it at bedtime. Take your doses at regular intervals. Do not take your medicine more often than directed. Talk to your mold shop supervisor regarding the use of this medicine in children. Special care may be needed. What side effects may I notice from receiving this medicine? Side effects that you should report to your doctor or health childcare aide as soon as possible: agitation, nervousness confusion hallucinations skin rash, itching Side effects that usually do not require medical attention (report to your doctor or health childcare aide if they continue or are bothersome): constipation diarrhea dizziness headache What may interact with this medicine? delavirdine itraconazole ketoconazole What if I miss a dose? If you miss a dose, take it as soon as you can. If it is almost time for your next dose, take only that dose. Do not take double or extra doses. Where should I keep my medicine? Keep out of the reach of children. Store at room temperature between 15 and 30 degrees C (59 and 86 degrees F). Do not freeze. Throw away any unused medicine after the expiration date. What should I tell my health care provider before I take this medicine? They need to know if you have any of these conditions: kidney or liver disease trouble swallowing an unusual or allergic reaction to famotidine, other medicines, foods, dyes, or preservatives or trying to get breast-feeding What should I watch for while using this medicine? Tell your doctor or health childcare aide if your condition does not start to get better or if it gets worse. Finish the full course of tablets prescribed, even if you feel better. Do not take with aspirin, ibuprofen or other antiinflammatory medicines. These can make your condition worse. Do not smoke cigarettes or drink alcohol. These cause irritation in your stomach and can increase the time it will take for ulcers to heal. If you get black, tarry stools or vomit up what looks like coffee grounds, call your doctor or health childcare aide at once. You may have a bleeding ulcer. Hydrochlorothiazide Oral tablet What is this medicine? HYDROCHLOROTHIAZIDE (laly droe klor oh THYE a zide) is a diuretic. It increases the amount of urine passed, which causes the body to lose salt and water. This medicine is used to treat high blood pressure. It is also reduces the swelling and water retention caused by various medical conditions, such as heart, liver, or kidney disease. How should I use this medicine? Take this medicine by mouth with a glass of water. Follow the directions on the prescription label. Take your medicine at regular intervals. Remember that you will need to pass urine frequently after taking this medicine. Do not take your doses at a time of day that will cause you problems. Do not stop taking your medicine unless your doctor tells you to. Talk to your mold shop supervisor regarding the use of this medicine in children. Special care may be needed. What side effects may I notice from receiving this medicine? Side effects that you should report to your doctor or health childcare aide as soon as possible: allergic reactions such as skin rash or itching, hives, swelling of the lips, mouth, tongue, or throat changes in vision chest pain eye pain fast or irregular heartbeat feeling faint or lightheaded, falls gout attack muscle pain or cramps pain or difficulty when passing urine pain, tingling, numbness in the hands or feet redness, blistering, peeling or loosening of the skin, including inside the mouth unusually weak or tired Side effects that usually do not require medical attention (report to your doctor or health childcare aide if they continue or are bothersome): change in sex drive or performance dry mouth headache stomach upset What may interact with this medicine? cholestyramine colestipol digoxin dofetilide lithium medicines for blood pressure medicines for diabetes medicines that relax muscles for surgery other diuretics steroid medicines like prednisone or cortisone What if I miss a dose? If you miss a dose, take it as soon as you can. If it is almost time for your next dose, take only that dose. Do not take double or extra doses. Where should I keep my medicine? Keep out of the reach of children. Store at room temperature between 15 and 30 degrees C (59 and 86 degrees F). Do not freeze. Protect from light and moisture. Keep container closed tightly. Throw away any unused medicine after the expiration date. What should I tell my health care provider before I take this medicine? They need to know if you have any of these conditions: diabetes gout immune system problems, like lupus kidney disease or kidney stones liver disease pancreatitis small amount of urine or difficulty passing urine an unusual or allergic reaction to hydrochlorothiazide, sulfa drugs, other medicines, foods, dyes, or preservatives or trying to get breast-feeding What should I watch for while using this medicine? Visit your doctor or health childcare aide for regular checks on your progress. Check your blood pressure as directed. Ask your doctor or health childcare aide what your blood pressure should be and when you should contact him or her. You may need to be on a special diet while taking this medicine. Ask your doctor. Check with your doctor or health childcare aide if you get an attack of severe diarrhea, nausea and vomiting, or if you sweat a lot. The loss of too much body fluid can make it dangerous for you to take this medicine. You may get drowsy or dizzy. Do not drive, use machinery, or do anything that needs mental alertness until you know how this medicine affects you. Do not stand or sit up quickly, especially if you are an older patient. This reduces the risk of dizzy or fainting spells. Alcohol may interfere with the effect of this medicine. Avoid alcoholic drinks. This medicine may affect your blood sugar level. If you have diabetes, check with your doctor or health childcare aide before changing the dose of your diabetic medicine. This medicine can make you more sensitive to the sun. Keep out of the sun. If you cannot avoid being in the sun, wear protective clothing and use sunscreen. Do not use sun lamps or tanning beds/booths. You have been given the following additional information: Abdominal Pain, Unknown Cause, (Male) Hypertension, Established, Out Of Control Hypokalemia Famotidine Oral tablet Hydrochlorothiazide Oral tablet (Electronically signed by Thang Colorado MD 09/11/2016 8:25)
--- NOTE | 2016-09-11 08:25 | ED DISCHARGE INSTRUCTIONS ---
Patient: MARIA LUISA RAIN General Instructions [facility] VisitID: [id number] [address] [place] [address] 46y, M Registration Date/Time: 09/10/2016 Chronic abdominal pain. Hypertension. Hypokalemia INSTRUCTIONS Drink plenty of fluids. Warnings: Further evaluation is necessary. GENERAL WARNINGS: Return or contact your physician immediately if your condition worsens or changes unexpectedly, if not improving as expected, or if other problems arise. Prescription Medications: Pepcid 20 mg tablets: Take 1 orally every 12 hours. Dispense thirty (30). No refills. Substitution is permissible. HCTZ 25 mg: Take 1 orally every 24 hours. Dispense fifteen (15). No refills. Understanding of the discharge instructions verbalized by patient. Follow-up with: [facility], , , [address], , [place], [id number] Follow up Friday in five days. Call for an appointment. ADDITIONAL INFORMATION Abdominal Pain,Uncertain Cause [Male] Based on your visit today, the exact cause of your abdominalpain is not clear. Your exam and tests do not indicate a dangerous cause at this time. However, the signs of a serious problem may take more time to appear. Although your evaluation was reassuring today, sometimes early in the course of many conditions, exam and lab tests can appear normal. Therefore, it is important for you to watch for any new symptoms or worsening of your condition. Causes It may not be obvious what caused your symptoms. Pay attention to things that do seem to make your symptoms worse or better and discuss this with your doctor when you follow up. Diagnosis The evaluation of abdominal pain in the emergency department may onlyrequire an exam by the doctor or it may include blood, urine or imaging studies, depending on many factors. Sometimes exams and tests can identify a cause but in many cases, a clear cause is not found. Further testing at follow up visits may help to suggest a clear diagnosis. Home Care Rest as much as possible until your next exam. Try to avoid any medications (unless otherwise directed by your doctor), foods, activities, or other factors that you may have contributed to your symptoms. Try to eat foods that you know that you have tolerated well in the past. Certain diets may be recommended for some conditions that cause abdominal pain. However, since the cause of your symptoms may not be clear, discuss your diet more with your primary care provider or specialist for further recommendations. Eating several small meals per day as opposed to 2 or 3 larger meals may help. Monitor closely for anything that may make your symptoms worse or better. Pay close attention to symptoms below that may indicate worsening of your condition. Follow Up and Precautions See your doctoras instructed or sooneror if your symptoms are not improving.In some cases, you may need more testing. When to Seek Medical Attention Contact your doctor or see medical attention ifany of the following occur: Pain is becoming worse You are unable to take your medications due to excessive vomiting Swelling of the abdomen Fever of 100.4F (38C) or higher, or as directed by your health care provider Blood in vomit or bowel movements (dark red or black color) Jaundice (yellow color of eyes and skin) New onset of weakness, dizziness or fainting New onset of chest, arm, back, neck or jaw pain Hypertension, Out Of Control (Established) Your blood pressure was unusually high today. This can occur as a result of missing doses of your blood pressure medicine. Some asthma inhalers, decongestants, diet pills, and street drugs such as cocaine and amphetamine can worsen hypertension. An increase in body weight, increase in salt intake, smoking, and caffeine are other causes. Emotional upset or acute pain can cause a sudden rapid rise in blood pressure which may return to normal after a period of rest. A normal blood pressure is less than 140/90. The first (top) number is the systolic pressure. The second (bottom) number is the diastolic pressure. Hypertension exists when either the top number is 140 or higher, OR the bottom number is 90 or higher on repeated measurements. Home Care: All patients with high blood pressure should do the following to lower their pressure. If you are on blood pressure medicines, then these methods may reduce or eliminate your need for medicines in the future. Begin a weight-loss program if you are overweight. Reduce your salt intake. Avoid high-salt foods (olives, pickles, smoked meats, salted potato chips, etc.). Do not add salt to your food at the table. Use only small amounts of salt when cooking. Begin an exercise program. Discuss with your doctor what type of exercise program would be best for you. It doesnt have to be difficult. Even brisk walking for 20 minutes3 times a week is a good form of exercise. Avoid medicines which contain heart stimulants. This includes many cold and sinus decongestant pills and sprays as well as diet pills. Check the warnings about hypertension on the label. Stimulants such as amphetamine or cocaine could be lethal for someone with hypertension. Never take these. Limit your caffeine intake or switch to decaf. Stop smoking. If you are a long-time smoker, this can be hard. Enroll in a stop-smoking program to improve your chance of success. Talk to your physician about ways to improve your chance of success. Learning how to handle stress better is an important part of any program to lower blood pressure. Learn about relaxation methods such as meditation, yoga, or biofeedback. If medicines were prescribed, take them exactly as directed. Missing doses may cause your blood pressure to get out of control. Consider buying an automatic blood pressure machine (available at many pharmacies). Use this to monitor your blood pressure and report to your doctor. Follow Up: Regular visits to your own doctor for blood pressure checks and medicine adjustment is an important part of your care. Make a follow-up appointment as directed by our staff. Get Prompt Medical Attention if any of the following occur: Chest, arm, shoulder, neck, or upper back pain Shortness of breath Severe headache Throbbing or rushing sound in the ears Nosebleed Extreme drowsiness, confusion, or fainting Dizziness or vertigo (dizziness with spinning sensation) Weakness of an arm or leg or one side of the face Difficulty with speech or vision Hypokalemia Hypokalemia means a low level of potassium in the blood. This most often occurs in patients who take diuretics (water pills). It can also occur due to severe vomiting or diarrhea. A mild case usually causes no symptoms. It is only found with blood testing. More severe potassium loss causes generalized weakness, muscle or abdominal cramping, heart palpitations (rapid or irregular heartbeats) and low blood pressure. Home Care: 1) Take any potassium supplements prescribed. 2) Eat foods rich in potassium. The highest amount is found in artichoke, baked potatoes, spinach, cantaloupe, honeydew melon, cod, halibut, salmon, and scallops. White, red, or jennings beans are also very good sources. A modest amount is found in orange juice, bananas, carrots, and tomato juice. 3) Certain types of diuretics (water pills), such as Lasix (furosemide), require that you take potassium supplements for as long as you take the diuretic pills. If you are taking a diuretic, discuss the need for potassium supplements with your doctor. Follow Up with your doctor for a repeat blood test within the next week or as advised by our staff. Get Prompt Medical Attention if any of the following occur: -- Increased weakness -- Feeling dizzy -- Irregular heartbeat, extra beats or very fast heart rate -- Fainting spell Famotidine Oral tablet What is this medicine? FAMOTIDINE (ashleigh mccarty) is a type of antihistamine that blocks the release of stomach acid. It is used to treat stomach or intestinal ulcers. It can also relieve heartburn from acid reflux. How should I use this medicine? Take this medicine by mouth with a glass of water. Follow the directions on the prescription label. If you only take this medicine once a day, take it at bedtime. Take your doses at regular intervals. Do not take your medicine more often than directed. Talk to your production associate regarding the use of this medicine in children. Special care may be needed. What side effects may I notice from receiving this medicine? Side effects that you should report to your doctor or health lpn care manager as soon as possible: agitation, nervousness confusion hallucinations skin rash, itching Side effects that usually do not require medical attention (report to your doctor or health lpn care manager if they continue or are bothersome): constipation diarrhea dizziness headache What may interact with this medicine? delavirdine itraconazole ketoconazole What if I miss a dose? If you miss a dose, take it as soon as you can. If it is almost time for your next dose, take only that dose. Do not take double or extra doses. Where should I keep my medicine? Keep out of the reach of children. Store at room temperature between 15 and 30 degrees C (59 and 86 degrees F). Do not freeze. Throw away any unused medicine after the expiration date. What should I tell my health care provider before I take this medicine? They need to know if you have any of these conditions: kidney or liver disease trouble swallowing an unusual or allergic reaction to famotidine, other medicines, foods, dyes, or preservatives or trying to get breast-feeding What should I watch for while using this medicine? Tell your doctor or health lpn care manager if your condition does not start to get better or if it gets worse. Finish the full course of tablets prescribed, even if you feel better. Do not take with aspirin, ibuprofen or other antiinflammatory medicines. These can make your condition worse. Do not smoke cigarettes or drink alcohol. These cause irritation in your stomach and can increase the time it will take for ulcers to heal. If you get black, tarry stools or vomit up what looks like coffee grounds, call your doctor or health lpn care manager at once. You may have a bleeding ulcer. Hydrochlorothiazide Oral tablet What is this medicine? HYDROCHLOROTHIAZIDE (laly droe klor oh THYE a zide) is a diuretic. It increases the amount of urine passed, which causes the body to lose salt and water. This medicine is used to treat high blood pressure. It is also reduces the swelling and water retention caused by various medical conditions, such as heart, liver, or kidney disease. How should I use this medicine? Take this medicine by mouth with a glass of water. Follow the directions on the prescription label. Take your medicine at regular intervals. Remember that you will need to pass urine frequently after taking this medicine. Do not take your doses at a time of day that will cause you problems. Do not stop taking your medicine unless your doctor tells you to. Talk to your production associate regarding the use of this medicine in children. Special care may be needed. What side effects may I notice from receiving this medicine? Side effects that you should report to your doctor or health lpn care manager as soon as possible: allergic reactions such as skin rash or itching, hives, swelling of the lips, mouth, tongue, or throat changes in vision chest pain eye pain fast or irregular heartbeat feeling faint or lightheaded, falls gout attack muscle pain or cramps pain or difficulty when passing urine pain, tingling, numbness in the hands or feet redness, blistering, peeling or loosening of the skin, including inside the mouth unusually weak or tired Side effects that usually do not require medical attention (report to your doctor or health lpn care manager if they continue or are bothersome): change in sex drive or performance dry mouth headache stomach upset What may interact with this medicine? cholestyramine colestipol digoxin dofetilide lithium medicines for blood pressure medicines for diabetes medicines that relax muscles for surgery other diuretics steroid medicines like prednisone or cortisone What if I miss a dose? If you miss a dose, take it as soon as you can. If it is almost time for your next dose, take only that dose. Do not take double or extra doses. Where should I keep my medicine? Keep out of the reach of children. Store at room temperature between 15 and 30 degrees C (59 and 86 degrees F). Do not freeze. Protect from light and moisture. Keep container closed tightly. Throw away any unused medicine after the expiration date. What should I tell my health care provider before I take this medicine? They need to know if you have any of these conditions: diabetes gout immune system problems, like lupus kidney disease or kidney stones liver disease pancreatitis small amount of urine or difficulty passing urine an unusual or allergic reaction to hydrochlorothiazide, sulfa drugs, other medicines, foods, dyes, or preservatives or trying to get breast-feeding What should I watch for while using this medicine? Visit your doctor or health lpn care manager for regular checks on your progress. Check your blood pressure as directed. Ask your doctor or health lpn care manager what your blood pressure should be and when you should contact him or her. You may need to be on a special diet while taking this medicine. Ask your doctor. Check with your doctor or health lpn care manager if you get an attack of severe diarrhea, nausea and vomiting, or if you sweat a lot. The loss of too much body fluid can make it dangerous for you to take this medicine. You may get drowsy or dizzy. Do not drive, use machinery, or do anything that needs mental alertness until you know how this medicine affects you. Do not stand or sit up quickly, especially if you are an older patient. This reduces the risk of dizzy or fainting spells. Alcohol may interfere with the effect of this medicine. Avoid alcoholic drinks. This medicine may affect your blood sugar level. If you have diabetes, check with your doctor or health lpn care manager before changing the dose of your diabetic medicine. This medicine can make you more sensitive to the sun. Keep out of the sun. If you cannot avoid being in the sun, wear protective clothing and use sunscreen. Do not use sun lamps or tanning beds/booths. You have been given the following additional information: Abdominal Pain, Unknown Cause, (Male) Hypertension, Established, Out Of Control Hypokalemia Famotidine Oral tablet Hydrochlorothiazide Oral tablet (Electronically signed by Thang Colorado MD 09/11/2016 8:25)
--- NOTE | 2016-09-11 08:25 | ED MED RECONCILIATION SUMMARY ---
Patient: MARIA LUISA RAIN Medication Reconciliation Report [facility] VisitID: [id number] [address] [place] [address] 46y, M Registration Date/Time: 09/10/2016 Weight: 104.3 kg Height/Length: 76 in. BMI: 28.0 ALLERGIES: Sudafed The patient's Home Medications are listed below: THE FOLLOWING MEDICATIONS NEED TO BE RECONCILED: Lisinopril Oral The source(s) of the original Home Medication information: patient The following Medications were given to the patient in the Emergency Department: IV NS IV Fluids bolus 500 mL over 1 hour(s), then 125 mL/hr, administered: 09/10/2016 9:37:00 PM Dilaudid [IVP] IVP 0.5 mg, administered: 09/10/2016 10:59:00 PM Zofran [IVP] IVP 4 mg, administered: 09/10/2016 10:59:00 PM KCL [PO] PO 20 meq, administered: 09/10/2016 11:00:00 PM Clonidine [PO] PO 0.2 mg, administered: 09/10/2016 11:00:00 PM PROTONIX [IVP] IVP 40 mg, administered: 09/11/2016 12:04:00 AM Acetaminophen [PO] PO 1000 mg, administered: 09/11/2016 1:15:00 AM The following Medications were prescribed to the patient: Pepcid 20 mg tablets: Take 1 orally every 12 hours. Dispense thirty (30). No refills. Substitution is permissible. -- Thang Colorado MD HCTZ 25 mg: Take 1 orally every 24 hours. Dispense fifteen (15). No refills. -- Thang Colorado MD
--- NOTE | 2016-09-11 08:25 | ED MAR SUMMARY ---
..... Medication Administration Record [facility] [address] [place] [address] Patient: MARIA LUISA RAIN Visit ID: [id number] 46y, M Weight: 104.3 kg Height/Length: 76 in BMI: 28 ALLERGIES: Sudafed Start 21:37 09/10/2016 Brooke Berrios,, Stop 01:15 09/11/2016 Brooke Berrios, Medication Administered: IV NS (SALINE), Dose: IV Fluids over 4 hour(s), Rate: 125 mL/hr, Bolus: 500 mL over 1 hour(s), Dispensed: 1000 mL bag, Site: #1 right AC. Medication Ordered: IV NS : initial bolus 500 mL (1000 mL/hr), then 125 mL/hr for 4h (NOW); Urgent. Given 22:59 09/10/2016 Brooke Berrios, Medication Administered: DILAUDID [IVP] (HYDROMORPHONE HCL PF), Dose: 0.5 mg IVP, Site: #1 right AC. Medication Ordered: Dilaudid IV 0.5 mg (HIGH ALERT MEDICATION, NOW). Given :59 09/10/2016 Brooke Berrios, Medication Administered: ZOFRAN [IVP] (ONDANSETRON HCL), Dose: 4 mg IVP, Site: #1 right AC. Medication Ordered: Zofran IV 4 mg (NOW). Given 23:00 09/10/2016 Brooke Berrios, Medication Administered: KCL [PO] (POTASSIUM CHLORIDE ER), Dose: 20 meq PO. Medication Ordered: KCl PO 20 meq (NOW). Given 23:09/10/2016 Brooke Berrios, Medication Administered: CLONIDINE [PO], Dose: 0.2 mg PO. Medication Ordered: Clonidine PO 0.2 mg (NOW). Given 00:04 09/11/2016 Brooke Berrios Medication Administered: PROTONIX [IVP] (PANTOPRAZOLE SODIUM), Dose: 40 mg IVP, Site: #1 right AC. Medication Ordered: Protonix IVP 40mg 40 mg (Mix in NS 10ml over 2min). Given :09/11/2016 Brooke Berrios, Medication Administered: ACETAMINOPHEN [PO] (APAP), Dose: 1000 mg PO. Medication Ordered: Acetaminophen PO 1,000 mg (NOW).
--- NOTE | 2016-09-11 08:25 | ED MAR SUMMARY ---
..... Medication Administration Record [facility] [address] [place] [address] Patient: MARIA LUISA RAIN Visit ID: [id number] 46y, M Weight: 104.3 kg Height/Length: 76 in BMI: 28 ALLERGIES: Sudafed Start 21:37 09/10/2016 Brooke Berrios,, Stop 01:15 09/11/2016 Brooke Berrios, Medication Administered: IV NS (SALINE), Dose: IV Fluids over 4 hour(s), Rate: 125 mL/hr, Bolus: 500 mL over 1 hour(s), Dispensed: 1000 mL bag, Site: #1 right AC. Medication Ordered: IV NS : initial bolus 500 mL (1000 mL/hr), then 125 mL/hr for 4h (NOW); Urgent. Given 22:59 09/10/2016 Brooke Berrios, Medication Administered: DILAUDID [IVP] (HYDROMORPHONE HCL PF), Dose: 0.5 mg IVP, Site: #1 right AC. Medication Ordered: Dilaudid IV 0.5 mg (HIGH ALERT MEDICATION, NOW). Given :59 09/10/2016 Brooke Berrios, Medication Administered: ZOFRAN [IVP] (ONDANSETRON HCL), Dose: 4 mg IVP, Site: #1 right AC. Medication Ordered: Zofran IV 4 mg (NOW). Given 23:00 09/10/2016 Brooke Berrios, Medication Administered: KCL [PO] (POTASSIUM CHLORIDE ER), Dose: 20 meq PO. Medication Ordered: KCl PO 20 meq (NOW). Given 23:09/10/2016 Brooke Berrios, Medication Administered: CLONIDINE [PO], Dose: 0.2 mg PO. Medication Ordered: Clonidine PO 0.2 mg (NOW). Given 00:04 09/11/2016 Brooke Berrios Medication Administered: PROTONIX [IVP] (PANTOPRAZOLE SODIUM), Dose: 40 mg IVP, Site: #1 right AC. Medication Ordered: Protonix IVP 40mg 40 mg (Mix in NS 10ml over 2min). Given :09/11/2016 Brooke Berrios, Medication Administered: ACETAMINOPHEN [PO] (APAP), Dose: 1000 mg PO. Medication Ordered: Acetaminophen PO 1,000 mg (NOW).
[2016-09-26] MEDS ORDERED: HYDROCHLOROTH12.5 MG PO (04:52)
[2016-09-26] MEDS ORDERED: LISINOPRIL10 MG PO (06:04)
[2016-09-26] MEDS ORDERED: FAMOTIDINE20 MG PO (11:53)
[2016-09-26] MEDS ORDERED: PANTOPRAZOLE SO40 MG PO (11:53)
[2016-09-26] MEDS ORDERED: NORVASC5 MG PO (17:11)
[2016-09-26] MEDS ORDERED: TRAMADOL HCL50 MG PO (18:00)
== END 2016-09-11 01:25 | disposition home or self-care (01) ==
LOC: ED SRH 20:22
DX: G89.29 Other chronic pain (principal); R10.11 Right upper quadrant pain; E87.6 Hypokalemia; I10 Essential (primary) hypertension; Z79.899 Other long term (current) drug therapy; Z88.8 Allergy status to other drugs, medicaments and biological substances
CPT/HCPCS: 90004; 90100; 92235; 92530; 92760; 92761; 92762; 92763; 92764; 92765; 92766; 92767; 95059

== ENCOUNTER 2016-09-25 23:38 | Inpatient (IN) | payer OTHER ==
[~2016-09-25] VITALS: Ht 193 cm; Wt 109.4 kg
[2016-09-26] VITALS (11 sets, daily range): BP systolic 86–144; BP diastolic 40–89
--- NOTE | 2016-09-26 03:02 | ED ORDER SUMMARY ---
..... Patient: MARIA LUISA RAIN OrderSheet [facility] VisitID: [id number] [place] [address] 46y, M Registration Date/Time: 09/25/2016 ORDER SHEET Weight: 104.3 kg (stated) Allergies: Sudafed GENERAL ORDERS: CBC w Diff Urgent (23:44 09/25/2016 Jules MANCILLA) (Ack 23:49 CHagerty ER Market Research Intern) (23:57 JSanders R.N.) CMP Urgent (23:44 09/25/2016 Jules MANCILLA) (Ack 23:49 CHagerty ER Market Research Intern) (23:57 JSanders R.N.) UA-Culture if indicated Urgent (23:44 09/25/2016 Jules MANCILLA) (Ack 23:49 CHagtico ER Market Research Intern) (Cancelled: Unable to Collect5:41 JSanders R.N.) Amylase Urgent (23:44 09/25/2016 Jules MANCILLA) (Ack 23:49 CHagerty ER Market Research Intern) (23:57 JSanders R.N.) Lipase Urgent (23:44 09/25/2016 Jules MANCILLA) (Ack 23:49 Adelaideerty ER Market Research Intern) (23:57 JSanders R.N.) Urine Drug Screen Urgent (23:44 09/25/2016 Jules MANCILLA) (Ack 23:49 CHagerty ER Market Research Intern) (Cancelled: Unable to Collect5:41 JSanders R.N.) Ethyl Alcohol Urgent (00:09 09/26/2016 JSanders R.N. per protocol) (0:10 CHagerty ER Market Research Intern) Chest 1V Urgent (00:50 09/26/2016 Jules MANCILLA) (Ack 0:53 CHagerty ER Market Research Intern) (1:19 JSanders R.N.) Gatekeeper (Continuous) (00:50 09/26/2016 Jules MANCILLA) (1:00 JSanders R.N.) CT Head wo Cont Urgent (00:50 09/26/2016 Jules MANCILLA) (Ack 0:53 CHagerty ER Market Research Intern) (1:19 JSanders R.N.) CPK Urgent (00:50 09/26/2016 Jules MANCILLA) (Ack 0:53 CHagtico ER Market Research Intern) (1:25 JSanders R.N.) Troponin-I Urgent (00:50 09/26/2016 Jules MANCILLA) (Ack 0:53 Ariela ER Market Research Intern) (1:25 JSanders R.N.) Oxygen (2 L/min) (NC) (00:50 09/26/2016 Jules MANCILLA) (0:52 SHAINAanders R.N.) Pulse oximeter (00:50 09/26/2016 Jules MANCILLA) (0:52 SHAINAanders R.N.) EKG - ER Stat (00:50 09/26/2016 Jules MANCILLA) (Ack 0:53 CHagtico ER Market Research Intern) (1:18 CHagerty ER Market Research Intern) US Abdomen Limited (Yes) Urgent (01:39 09/26/2016 Jules MANCILLA) (Ack 1:44 CHagerty ER Market Research Intern) (3:08 MCampbell) MEDICATION ORDERS: IV FLUIDS: IV NS : initial bolus 1000 mL (1000 mL/hr), then 1000 mL/hr for X2 (NOW); Urgent (23:44 09/25/2016 Jules MANCILLA) (Ack 23:48 RCollier R.N.) (23:58 JSanders R.N.) Protonix IVP 40mg 40 mg (Mix in NS 10ml over 2min) (23:44 09/25/2016 Jules MANCILLA) (Ack 23:48 RCollier R.N.) (0:06 JSanders R.N.) Zofran IV 4 mg (NOW) (01:15 09/26/2016 Jules MANCILLA) (1:21 JSanders R.N.) IV NS : initial bolus none -, then 200 mL/hr for 4h (NOW); Urgent (02:44 09/26/2016 Jules MANCILLA) (Ack 2:48 JSanders R.N.) (3:25 JSanders R.N.) ORDER SHEET NOTES: [Electronically signed by Rut Candelaria R.N. (05:42 09/26/2016)] [Electronically signed by Thang Colorado MD (09:05 09/26/2016)] [Electronically locked/signed by Rut Candelaria R.N. (05:42 09/26/2016)]
--- NOTE | 2016-09-26 03:02 | ED NURSING NOTES ---
Clinical Report - Nurses [facility] [address] [place] [address] 09/25/2016 23:39 Patient: MARIA LUISA RAIN TRIAGE Triage time 23:42 Sep 25 2016. Acuity: LEVEL 3. Chief Complaint: NAUSEA, VOMITING and DIARRHEA and (syncope). 23:50 09/25/16. SEPSIS SCREEN: Sepsis Screen. Negative (no infection suspected/documented). RENATO COMA SCORE: Renato Coma Scale: 14- eyes open to voice (3); best verbal response- oriented x 4 (5); best motor response- obeys commands (6). --23:50 Rut Candelaria R.N. 23:42 09/25/16. BP: 104/54 (regular adult cuff) taken on the left arm, while lying. HR: 77. RR: 16. O2 saturation: 98% on room air. Temp: 98.2 F (oral). Pain level now: 11/21. --23:50 Rut Candelaria R.N. late entry - 23:42 09/26/16. --00:15 Rut Candelaria R.N. Weight: 104.3 kg stated. Height/Length: 76 inches Per Patient. BMI: 28. --23:46 Rut Candelaria R.N. Medications Lisinopril Oral. --23:44 Rut Candelaria R.N. Hydrochlorothiazide Oral. --23:44 Rut Candelaria R.N. Allergies Sudafed.(vomiting) --23:44 Rut Candelaria R.N. History Arrived by EMS. Historian: EMS. This started just prior to arrival. He has had nausea, vomiting, diarrhea and abdominal pain. 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 SOCIAL HX: Never smoker. Alcohol use. (Patient says he has not had any alcohol today). No drug use. No recent travel. No infectious disease exposure. No known contact with a sick individual. ABUSE ASSESSMENT: No report of abuse. SELF HARM ASSESSMENT: A self harm assessment was performed. The patient answered "no" to the question "Do you have thoughts of harming or killing yourself?" and "Have you recently had thoughts about harming or killing others?". --23:50 Rut Candelaria R.N. ( EMS reported patients called them stating patient has had diarrhea, N/V all day and syncope episode in the bathroom, they state had been drinking. Patient has hx of pancreatitis due to heavy drinking). 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 Finger stick glucose performed (158). Pulse oximeter applied (98 2L). IV fluid given. BP: 103 / 51 lying. HR: 72 regular. Cardiac rhythm: sinus rhythm. --00:15 Rut Candelaria R.N. PROBLEMS: Hypokalemia. Abdominal Pain. Pancreatitis. Gastroesophageal Reflux Disease. Hypertension. --23:44 Rut Candelaria R.N. ADDITIONAL SURGERIES: Ankle rt, hardware. Right hand surgery. --23:44 Rut Candelaria R.N. Interventions ID band on patient. To treatment room. --23:50 Rut Candelaria R.N. PHYSICAL ASSESSMENT 23:53 09/25/16. To room via stretcher. GENERAL / NEURO / PSYCH: Oriented X 4. Decreased awareness (opens eyes to voice and drowsy). HEENT: Mucous membranes are pink. RESPIRATORY: Respirations not labored. Breath sounds within normal limits. CVS: Normal sinus rhythm noted. Capillary refill less than 2 seconds. GI / : The patient has had nausea and diarrhea. Abdomen soft. Abdominal tenderness. Hyperactive bowel sounds in the RUQ. SKIN: Skin is warm. --23:53 Rut Candelaria R.N. SKIN: The patient has an medium-sized superficial abrasion on the head (Patient had a fall in bathroom , he has a noticable abrasion at frontal lobe). --01:18 Rut Candelaria R.N. NURSING PROGRESS NOTES 23:40 09/25/2016 Site #1 started prior to arrival by EMS via IV in the left antecubital space with an 20g angiocath. --23:58 Rut Candelaria R.N. 23:53 09/25/16. The plan of care for this patient has been created. Monitoring of patient in place. Patient gowned. Reassurance given. Two patient identifiers checked. Call light placed in reach. Side rails up x 2. Bed placed in lowest position. Brakes of bed on. Patient ready for evaluation- chart flagged and ED physician notified. --23:53 Rut Candelaria R.N. 23:58 09/25/2016 Started bag #1 1000 mL IV Fluids IV NS (Saline); bolus of 1000 mL over 1 hour(s) then at 1000 mL/hr over 1 hour(s) via site #1 via IV pump. Allergies verified and confirmed 5 rights. IV patency established. IV site checked: no pain, redness, or swelling. IV flushed thoroughly pre- and post-medication administration. --23:58 Rut Candelaria R.N. 22:55. Patient ID band checked for patient name and birthdate: patient confirmed. Blood samples drawn from the right antecubital space with syringe and 23g butterfly by tech per protocol ; labeled in presence of the patient and sent to lab: [facility]. --23:59 Donna Velazquez, GENARO Tech1 00:02 09/26/2016 PROTONIX (Pantoprazole Sodium) IVP 40 mg given over 2 minute(s) via site #1. Allergies verified and confirmed 5 rights. IV patency established. IV site checked: no pain, redness, or swelling. IV flushed thoroughly pre- and post-medication administration. IVP given by RN. --00:06 Rut Candelaria R.N. 23:45 09/25/16. BP: 98/54 (regular adult cuff) taken on the right arm, while lying. --00:18 Rut Candelaria R.N. 00:00 09/26/16. BP: 99/49 (regular adult cuff) taken on the right arm, while lying. --00:19 Rut Candelaria R.N. 00:19 09/26/16. BP: 94/50 (regular adult cuff) taken on the right arm, while lying. --00:19 Rut Candelaria R.N. 00:20 09/26/16. ( Patient requests something to drink, informed him he needed to wait until we find out what is wrong with him. He states his understanding). --00:20 Rut Candelaria R.N. 00:21 09/26/16. BP: 98/51 (regular adult cuff) taken on the right arm, while lying. HR: 72. RR: 16. O2 saturation: 95% on room air. Pain level now: 08/21. --00:21 Rut Candelaria R.N. 00:29 09/26/2016 PROTONIX IVP Response: no adverse reaction pain is improving. Symptoms have improved the patient feels better. --00:29 Rut Candelaria R.N. 00:28 09/26/16. BP: 90/50 (regular adult cuff) taken on the right arm, while lying. HR: 72. RR: 16. O2 saturation: 100% on room air. Pain level now: 07/22. --00:32 Rut Candelaria R.N. 00:32 09/26/16. ( Patient states he has not been drinking, patient has slurred speach, FAST exam done). NIH STROKE SCALE: NIH Stroke Scale: score 4. Level of Consciousness: drowsy (1). LOC Questions: both (0). LOC Commands: both (0). Best gaze: normal (0). Visual field loss: none (0). Facial palsy: normal (0). Motor arm: no drift right arm (0) and no drift left arm (0). Motor leg: drift right leg (1) and left leg (1). Limb ataxia: none (0). Sensory loss: none (0). Aphasia: mild to moderate (1). Dysarthria: normal (0). Extinction and inattention: none (0). --00:32 Rut Candelaria R.N. 00:44 09/26/16. ( Fluids put in pressure bag, after first Liter of fluids in BP up to 99/52, DC first bag and replaced with second Liter of fluids in pressure). --00:44 Rut Candelaria R.N. 00:45 09/26/2016 IV Fluids IV NS Bag Change: bag #1 completed. Total amount infused: 1000. STARTED bag #2 (1000 mL) at 1000 mL/hr with pressure bag. Confirmed 5 rights. IV patency established. IV site checked: no pain, redness, or swelling. IV flushed thoroughly. --00:45 Rut Candelaria R.N. 00:45 09/26/16. ( Physician in with patient). --00:45 Rut Candelaria R.N. Hemoccult test negative. (POC test reference range: negative). --00:49 Rut Candelaria R.N. 00:51 09/26/16. BP: 100/57 (regular adult cuff) taken on the right arm, while lying. --00:52 Rut Candelaria R.N. 01:00 09/26/2016 IV Fluids IV NS Discontinued: bag #2 completed. Total amount infused: 1000 mL. IV patency established. IV site checked: no pain, redness, or swelling. IV flushed thoroughly. --01:00 Rut Candelaria R.N. Patient transported to SD by stretcher with tech. (01:00 Sep 26 2016). --01:00 Rut Candelaria R.N. 00:45 09/26/16. BP: 113/65. RR: 16. O2 saturation: 100% on room air. --01:01 Rut Candelaria R.N. 01:01 09/26/16. BP: 101/65 (regular adult cuff) taken on the right arm, while lying. O2 saturation: 100% on nasal cannula at 2 liters/minute. --01:02 Rut Candelaria R.N. 01:16 09/26/16. ( Patient reports nausea, reported to ED physician). --01:16 Rut Candelaria R.N. EKG time: (0116). EKG was ordered, performed by a tech and shown to the ED physician. --01:19 Gene Herr, ER Post Office Manager 01:21 09/26/2016 Zofran (Ondansetron HCl) IVP 4 mg given over 1 minute(s) via site #1. Allergies verified and confirmed 5 rights. IV patency established. IV site checked: no pain, redness, or swelling. IV flushed thoroughly pre- and post-medication administration. IVP given by RN. --01:21 Rut Candelaria R.N. Patient returned from CT by stretcher with tech. (01:13 Sep 26 2016). --01:24 Rut Candelaria R.N. 01:24 09/26/16. BP: 108/57 (regular adult cuff) taken on the right arm. HR: 74. RR: 16. O2 saturation: 100% on nasal cannula at 2 liters/minute. Pain level now: 08/21. --01:24 Rut Candelaria R.N. 01:33 09/26/16. ( Bladder scan reveals 10mL). --01:33 Rut Candelaria R.N. 01:43 09/26/16. ( Patient given phone to call his .). --01:43 Rut Candelaria R.N. 01:48 09/26/16. BP: 110/52 (regular adult cuff) taken on the right arm, while lying. HR: 81. RR: 20. O2 saturation: 100% on nasal cannula at 2 liters/minute. Pain level now: 08/21. --01:49 Rut Candelaria R.N. 02:14 09/26/16. BP: 101/52 (regular adult cuff) taken on the right arm, while lying. HR: 74. RR: 20. O2 saturation: 100% on nasal cannula at 2 liters/minute. Pain level now: 08/21. --02:15 Rut Candelaria R.N. 02:15 09/26/16. ( Patient resting quietly, easily aroused, patients states his is sleeping and he wont disturb her). --02:15 Rut Candelaria R.N. 02:52 09/26/16. ( US in with patient at this time). --02:52 Rut Candelaria R.N. 03:15 09/26/2016 Site #2 started via IV in the right antecubital space with an 20g angiocath, with aseptic technique and good blood return; one attempt. Saline lock flushed with 10 mL saline. --03:25 Rut Candelaria R.N. ( Patients BP dropped to 61/24 while US was in with patient, applied new 1L NS in pressure bag, bolused 750mL into patient and pressure back up to 110/65). --03:27 Rut Candelaria R.N. 03:23 09/26/2016 Site #1 removed (Patient complaining of pain at IV site, started an now line in right AC then DC this site). --03:28 Rut Candelaria R.N. 03:25 09/26/2016 Started bag #1 1000 mL IV Fluids IV NS (Saline); at 200 mL/hr over 4 hour(s) via site #2 via IV pump. Allergies verified and confirmed 5 rights. IV patency established. IV site checked: no pain, redness, or swelling. IV flushed thoroughly pre- and post-medication administration. --03:25 Rut Candelaria R.N. 03:30 09/26/16. ( Patient relocated to room #2 for better view from nurses station. Applied new warm blankets for patient, he is more comfortable now he says and no longer dizzy). --03:30 Rut Candelaria R.N. 03:46 09/26/16. --03:46 Rut Candelaria R.NJenise 03:45 09/26/16. BP: 95/48 (regular adult cuff) taken on the left arm, while lying. HR: 74. RR: 18. O2 saturation: 100% on nasal cannula at 2 liters/minute. Pain level now: 09/21. --03:46 Rut Candelaria R.NJenise 01:15 09/26/16. BP: 103/55 (regular adult cuff) taken on the right arm, while lying. HR: 80. RR: 20. O2 saturation: 100% on nasal cannula at 2 liters/minute. Pain level now: 08/21. --03:52 Rut Candelaria R.NJenise 02:00 09/26/16. BP: 101/52 (regular adult cuff) taken on the right arm, while lying. HR: 76. RR: 22. O2 saturation: 100% on nasal cannula at 2 liters/minute. Pain level now: 08/21. --03:54 Rut Candelaria R.NJenise 04:03 09/26/16. ( Patient talking much better now, speech not as slurred). RENATO COMA SCORE: Renato Coma Scale: 15- eyes open spontaneously (4); best verbal response- oriented x 4 (5); best motor response- obeys commands (6). --04:03 Rut Candelaria R.N. late entry - 04:40 09/26/16. ( Patient speaking to on phone). --04:52 Rut Candelaria R.N. 04:47 09/26/16. ( Patient ready to go, waiting to give report to CCU nurse). --04:47 Rut Candelaria R.N. DISPOSITION / DISCHARGE 05:16 09/26/2016 Site #[address] upon transfer; patent, no pain and no signs of infection or infiltration. Good blood return present. --05:16 Rut Candelaria R.N. 05:20 09/26/16 late entry -. Departure time: 05:20 Sep 26 2016. Condition at departure: improved. Transported via stretcher by nurse with IV and O2. Report was given to a nurse via a phone call. Report included patient's care, treatment, medications, reviewed medication reconcilliation, and condition (including any recent changes or anticipated changes). All questions were answered. Report was acknowledged and care was transferred. (Jocelin RN). Bed obtained and ready (302). Patient's personal items include, shirt patient had no other belongings. --05:37 Rut Candelaria R.N. 05:12 09/26/16. BP: 108/57 (regular adult cuff) taken on the left arm, while lying. HR: 72. RR: 18. O2 saturation: 100% on nasal cannula at 2 liters/minute. Temp: 98.4 F (oral). Pain level now: 08/21. --05:37 Rut Candelaria R.N. Locked/Released at 09/26/2016 5:42 by Rut Candelaria R.N.
--- NOTE | 2016-09-26 03:02 | ED ORDER SUMMARY ---
..... Patient: MARIA LUISA RAIN OrderSheet [facility] VisitID: [id number] [place] [address] 46y, M Registration Date/Time: 09/25/2016 ORDER SHEET Weight: 104.3 kg (stated) Allergies: Sudafed GENERAL ORDERS: CBC w Diff Urgent (23:44 09/25/2016 Jules MANCILLA) (Ack 23:49 CHagerty ER Oracle Drm Consultant) (23:57 JSanders R.N.) CMP Urgent (23:44 09/25/2016 Jules MANCILLA) (Ack 23:49 CHagerty ER Oracle Drm Consultant) (23:57 JSanders R.N.) UA-Culture if indicated Urgent (23:44 09/25/2016 Jules MANCILLA) (Ack 23:49 CHagtico ER [employer] Drm Consultant) (Cancelled: Unable to Collect5:41 JSanders R.N.) Amylase Urgent (23:44 09/25/2016 Jules MANCILLA) (Ack 23:49 CHagerty ER Oracle Drm Consultant) (23:57 JSanders R.N.) Lipase Urgent (23:44 09/25/2016 Jules MANCILLA) (Ack 23:49 Adelaideerty ER Oracle Drm Consultant) (23:57 JSanders R.N.) Urine Drug Screen Urgent (23:44 09/25/2016 Jules MANCILLA) (Ack 23:49 CHagerty ER Oracle Drm Consultant) (Cancelled: Unable to Collect5:41 JSanders R.N.) Ethyl Alcohol Urgent (00:09 09/26/2016 JSanders R.N. per protocol) (0:10 CHagerty ER Oracle Drm Consultant) Chest 1V Urgent (00:50 09/26/2016 Jules MANCILLA) (Ack 0:53 CHagerty ER Oracle Drm Consultant) (1:19 JSanders R.N.) Laboratory Tech (Continuous) (00:50 09/26/2016 Jules MANCILLA) (1:00 JSanders R.N.) CT Head wo Cont Urgent (00:50 09/26/2016 Jules MANCILLA) (Ack 0:53 CHagerty ER Oracle Drm Consultant) (1:19 JSanders R.N.) CPK Urgent (00:50 09/26/2016 Jules MANCILLA) (Ack 0:53 CHagtico ER Oracle Drm Consultant) (1:25 JSanders R.N.) Troponin-I Urgent (00:50 09/26/2016 Jules MANCILLA) (Ack 0:53 Ariela ER Oracle Drm Consultant) (1:25 JSanders R.N.) Oxygen (2 L/min) (NC) (00:50 09/26/2016 Jules MANCILLA) (0:52 SHAINAanders R.N.) Pulse oximeter (00:50 09/26/2016 Jules MANCILLA) (0:52 SHAINAanders R.N.) EKG - ER Stat (00:50 09/26/2016 Jules MANCILLA) (Ack 0:53 CHagtico ER Oracle Drm Consultant) (1:18 CHagerty ER Oracle Drm Consultant) US Abdomen Limited (Yes) Urgent (01:39 09/26/2016 Jules MANCILLA) (Ack 1:44 CHagerty ER Oracle Drm Consultant) (3:08 MCampbell) MEDICATION ORDERS: IV FLUIDS: IV NS : initial bolus 1000 mL (1000 mL/hr), then 1000 mL/hr for X2 (NOW); Urgent (23:44 09/25/2016 Jules MANCILLA) (Ack 23:48 RCollier R.N.) (23:58 JSanders R.N.) Protonix IVP 40mg 40 mg (Mix in NS 10ml over 2min) (23:44 09/25/2016 Jules MANCILLA) (Ack 23:48 RCollier R.N.) (0:06 JSanders R.N.) Zofran IV 4 mg (NOW) (01:15 09/26/2016 Jules MANCILLA) (1:21 JSanders R.N.) IV NS : initial bolus none -, then 200 mL/hr for 4h (NOW); Urgent (02:44 09/26/2016 Jules MANCILLA) (Ack 2:48 JSanders R.N.) (3:25 JSanders R.N.) ORDER SHEET NOTES: [Electronically signed by Rut Candelaria R.N. (05:42 09/26/2016)] [Electronically signed by Thang Colorado MD (09:05 09/26/2016)] [Electronically locked/signed by Rut Candelaria R.N. (05:42 09/26/2016)]
--- NOTE | 2016-09-26 03:02 | ED CLINICAL REPORT ---
Clinical Report - Physicians/Mid Levels [facility] [address] [place] [address] 09/25/2016 23:39 Patient: MARIA LUISA RAIN Time Seen: 23:41. Arrived- By ambulance. Historian- EMS personnel. HISTORY OF PRESENT ILLNESS Chief Complaint: SINGLE SYNCOPAL EPISODE. The patient has recovered. This occurred today. It was abrupt in onset and has been intermittent. Event was witnessed. The patient had preceding symptoms of light-headedness. At time of event, he had just stood up and was sitting. The patient felt faint, lost consciousness and collapsed. No incontinence. Had a single episode. The episode lasted an unknown duration. Location of injuries- head. He currently has weakness. Currently has nausea. (He says that he was feeling nauseated, had sweats and was lightheaded. He stood up and collapsed. Subsequently after that he had a voluminous bowel movement. He continued to feel lightheaded and nauseated.). Recent medical care: The patient was seen recently at this facility. REVIEW OF SYSTEMS The patient has had chills ("clammy"). He has had a subjective fever and experienced sweats. No calf pain, chest pain, difficulty breathing, pedal edema or palpitations. No urinary problems. He has had a mild cough productive of clear sputum. He has had severe, intermittent abdominal pain (chronically). The pain is described as located in the right upper quadrant. He has had severe diarrhea (The patient reports that he is typically constipated. However, today he had the urge to have a bowel movement and passed a very large one.). This has occurred only once. No bloody diarrhea. He has had nausea (for several days). It has been similar to previous symptoms. He has had severe vomiting. The vomiting has occurred several times. No blood-tinged emesis or frankly bloody emesis. All systems otherwise negative, except as recorded above. PAST HISTORY ( PCP - Aziza at [facility]). Problems: Hypokalemia. Abdominal Pain. Pancreatitis. Gastroesophageal Reflux Disease. Sprain. Hypertension. Additional Surgeries: Ankle rt, hardware. Right hand surgery. Medications: Hydrochlorothiazide Oral. Lisinopril Oral. Allergies: Sudafed.(vomiting). SOCIAL HISTORY Smoker- current status unknown. History of occasional drug use: marijuana. No alcohol use. Is a local resident. He lives with spouse. FAMILY HISTORY cousin with kidney disease father was an alcoholic who developed liver and kidney disease. ADDITIONAL NOTES The nursing notes have been reviewed. PHYSICAL EXAM Vital Signs: 09/25/2016 23:42 BP: 104/54. HR: 77. RR: 16. O2 saturation: 98%. Temp: 98.2 F. Pain level now: 11/21. Have been reviewed. Appearance: Alert. Eyes: Pupils equal, round and reactive to light. No nystagmus. ENT: Dry mucous membranes present. Pharynx normal. Neck: Neck supple. No meningeal signs or carotid bruit. CVS: Normal heart rate and rhythm. Respiratory: No respiratory distress. Breath sounds normal. Abdomen: Soft. Moderate tenderness in the right upper quadrant and epigastric area. No organomegaly. Back: Normal inspection. No CVA tenderness. Skin: Skin warm and dry. Normal skin color. Normal skin turgor. Extremities: Extremities exhibit normal ROM. No calf tenderness. No lower extremity edema. Neuro: Alert. Cranial nerves normal (as tested). LABS, X-RAYS, AND EKG EKG: Rate: 80. Prolonged QT. Prior EKG unavailable. The study has been independently viewed by me. CT Head: No acute changes. The study was interpreted by the radiologist and contemporaneously by me. Laboratory Tests: CPK: (JOLIE: 09/26/2016 00:01) ( MsgRcvd 09/26/2016 01:25) Final results Test Result Flag Units (Reference) CPK 1504 H U/L (24-260) TROPONIN I 0.00 ng/mL (0.00-1.5) TROPONIN REFERENCE RANGE:<0.1 NEGATIVE0.1-1.5 INDETERMINANT>1.5 POSITIVE CK-MB 9.0 H ng/mL (0.5-3.2) %CKMB 0.6 % (0.0-4.0) Ethyl Alcohol: (JOLIE: 09/26/2016 00:01) ( MsgRcvd 09/26/2016 00:20) Final results Test Result Flag Units (Reference) ETHYL ALCOHOL <3 L mg/dL (3-10) CBC w Diff: (JOLIE: 09/25/2016 22:55) ( [facility] 09/26/2016 00:06) Final results Test Result Flag Units (Reference) WHITE BLOOD COUNT 12.8 H K/uL (4.5-11.5) RED BLOOD COUNT 4.87 M/uL (4.50-5.90) HEMOGLOBIN 13.5 gm/dL (13.5-17.5) HEMATOCRIT 41.6 % (41.0-53.0) MEAN CELL VOLUME 85 fL (80-100) MEAN CORPUSCULAR HGB 28 pg (26-34) MEAN CORPUSCULAR HGB CONC 33 g/dL (31-37) RED CELL DISTRIBUTION WIDTH 13.8 % (11.6-14.8) PLATELET COUNT 218 K/uL (150-400) LYMPH % 22.8 L % (25-40) MONO % 4.9 % (3-14) GRANULOCYTE % 72.3 CMP: (JOLIE: 09/25/2016 22:55) ( [facility] 09/26/2016 00:19) Final results Test Result Flag Units (Reference) GLUCOSE 125 H mg/dL (70-110) BUN 29 H mg/dL (7-18) CREATININE 3.0 H mg/dL (0.6-1.3) Estimated GFR 23.86 mL/min Estimated GFR- 28.92 mL/min Note: Persistent reduction over 3 months in eGFR<60 mL/min/1.73 m2 defines CKD. Patients with eGFR values>=60 mL/min/1.73 m2 may also have CKD if evidence ofpersistent proteinuria. Additional information may be foundat www.[email or web address].org. SODIUM 142 mmol/L (136-145) POTASSIUM 3.5 mmol/L (3.5-5.1) CHLORIDE 104 mmol/L (98-107) CARBON DIOXIDE 26 mmol/L (21-32) CALCIUM 8.7 mg/dL (8.5-10.1) TOTAL PROTEIN 7.6 g/dL (6.4-8.2) ALBUMIN 3.9 g/dL (3.3-5.0) BILIRUBIN, TOTAL 0.6 mg/dL (0.0-1.0) ALKALINE PHOSPHATASE 75 U/L (46-116) AST (SGOT) 44 H U/L (15-37) ALT (SGPT) 81 H U/L (12-78) LIPASE 225 U/L (73-393) AMYLASE 84 U/L (25-115) . PROGRESS AND PROCEDURES Discussed case with hospitalist, (Rabia - he saw the patient in the ER). Reviewed test results and need for additional work-up. Agreed upon treatment plan and decision to admit. Patient/family counseled. Old medical records reviewed. Disposition: Admitted. CLINICAL IMPRESSION Syncope. Dehydration. Nontraumatic rhabdomyolysis. Acute renal insufficiency. (Electronically signed by Thang Colorado MD 09/26/2016 9:05)
--- NOTE | 2016-09-26 03:02 | ED CLINICAL REPORT ---
Clinical Report - Physicians/Mid Levels [facility] [address] [place] [address] 09/25/2016 23:39 Patient: MARIA LUISA RAIN Time Seen: 23:41. Arrived- By ambulance. Historian- EMS personnel. HISTORY OF PRESENT ILLNESS Chief Complaint: SINGLE SYNCOPAL EPISODE. The patient has recovered. This occurred today. It was abrupt in onset and has been intermittent. Event was witnessed. The patient had preceding symptoms of light-headedness. At time of event, he had just stood up and was sitting. The patient felt faint, lost consciousness and collapsed. No incontinence. Had a single episode. The episode lasted an unknown duration. Location of injuries- head. He currently has weakness. Currently has nausea. (He says that he was feeling nauseated, had sweats and was lightheaded. He stood up and collapsed. Subsequently after that he had a voluminous bowel movement. He continued to feel lightheaded and nauseated.). Recent medical care: The patient was seen recently at this facility. REVIEW OF SYSTEMS The patient has had chills ("clammy"). He has had a subjective fever and experienced sweats. No calf pain, chest pain, difficulty breathing, pedal edema or palpitations. No urinary problems. He has had a mild cough productive of clear sputum. He has had severe, intermittent abdominal pain (chronically). The pain is described as located in the right upper quadrant. He has had severe diarrhea (The patient reports that he is typically constipated. However, today he had the urge to have a bowel movement and passed a very large one.). This has occurred only once. No bloody diarrhea. He has had nausea (for several days). It has been similar to previous symptoms. He has had severe vomiting. The vomiting has occurred several times. No blood-tinged emesis or frankly bloody emesis. All systems otherwise negative, except as recorded above. PAST HISTORY ( PCP - Aziza at [facility]). Problems: Hypokalemia. Abdominal Pain. Pancreatitis. Gastroesophageal Reflux Disease. Sprain. Hypertension. Additional Surgeries: Ankle rt, hardware. Right hand surgery. Medications: Hydrochlorothiazide Oral. Lisinopril Oral. Allergies: Sudafed.(vomiting). SOCIAL HISTORY Smoker- current status unknown. History of occasional drug use: marijuana. No alcohol use. Is a local resident. He lives with spouse. FAMILY HISTORY cousin with kidney disease father was an alcoholic who developed liver and kidney disease. ADDITIONAL NOTES The nursing notes have been reviewed. PHYSICAL EXAM Vital Signs: 09/25/2016 23:42 BP: 104/54. HR: 77. RR: 16. O2 saturation: 98%. Temp: 98.2 F. Pain level now: 11/21. Have been reviewed. Appearance: Alert. Eyes: Pupils equal, round and reactive to light. No nystagmus. ENT: Dry mucous membranes present. Pharynx normal. Neck: Neck supple. No meningeal signs or carotid bruit. CVS: Normal heart rate and rhythm. Respiratory: No respiratory distress. Breath sounds normal. Abdomen: Soft. Moderate tenderness in the right upper quadrant and epigastric area. No organomegaly. Back: Normal inspection. No CVA tenderness. Skin: Skin warm and dry. Normal skin color. Normal skin turgor. Extremities: Extremities exhibit normal ROM. No calf tenderness. No lower extremity edema. Neuro: Alert. Cranial nerves normal (as tested). LABS, X-RAYS, AND EKG EKG: Rate: 80. Prolonged QT. Prior EKG unavailable. The study has been independently viewed by me. CT Head: No acute changes. The study was interpreted by the radiologist and contemporaneously by me. Laboratory Tests: CPK: (JOLIE: 09/26/2016 00:01) ( MsgRcvd 09/26/2016 01:25) Final results Test Result Flag Units (Reference) CPK 1504 H U/L (24-260) TROPONIN I 0.00 ng/mL (0.00-1.5) TROPONIN REFERENCE RANGE:<0.1 NEGATIVE0.1-1.5 INDETERMINANT>1.5 POSITIVE CK-MB 9.0 H ng/mL (0.5-3.2) %CKMB 0.6 % (0.0-4.0) Ethyl Alcohol: (JOLIE: 09/26/2016 00:01) ( MsgRcvd 09/26/2016 00:20) Final results Test Result Flag Units (Reference) ETHYL ALCOHOL <3 L mg/dL (3-10) CBC w Diff: (JOLIE: 09/25/2016 22:55) ( [facility] 09/26/2016 00:06) Final results Test Result Flag Units (Reference) WHITE BLOOD COUNT 12.8 H K/uL (4.5-11.5) RED BLOOD COUNT 4.87 M/uL (4.50-5.90) HEMOGLOBIN 13.5 gm/dL (13.5-17.5) HEMATOCRIT 41.6 % (41.0-53.0) MEAN CELL VOLUME 85 fL (80-100) MEAN CORPUSCULAR HGB 28 pg (26-34) MEAN CORPUSCULAR HGB CONC 33 g/dL (31-37) RED CELL DISTRIBUTION WIDTH 13.8 % (11.6-14.8) PLATELET COUNT 218 K/uL (150-400) LYMPH % 22.8 L % (25-40) MONO % 4.9 % (3-14) GRANULOCYTE % 72.3 CMP: (JLOIE: 09/25/2016 22:55) ( [facility] 09/26/2016 00:19) Final results Test Result Flag Units (Reference) GLUCOSE 125 H mg/dL (70-110) BUN 29 H mg/dL (7-18) CREATININE 3.0 H mg/dL (0.6-1.3) Estimated GFR 23.86 mL/min Estimated GFR- 28.92 mL/min Note: Persistent reduction over 3 months in eGFR<60 mL/min/1.73 m2 defines CKD. Patients with eGFR values>=60 mL/min/1.73 m2 may also have CKD if evidence ofpersistent proteinuria. Additional information may be foundat www.[email or web address].org. SODIUM 142 mmol/L (136-145) POTASSIUM 3.5 mmol/L (3.5-5.1) CHLORIDE 104 mmol/L (98-107) CARBON DIOXIDE 26 mmol/L (21-32) CALCIUM 8.7 mg/dL (8.5-10.1) TOTAL PROTEIN 7.6 g/dL (6.4-8.2) ALBUMIN 3.9 g/dL (3.3-5.0) BILIRUBIN, TOTAL 0.6 mg/dL (0.0-1.0) ALKALINE PHOSPHATASE 75 U/L (46-116) AST (SGOT) 44 H U/L (15-37) ALT (SGPT) 81 H U/L (12-78) LIPASE 225 U/L (73-393) AMYLASE 84 U/L (25-115) . PROGRESS AND PROCEDURES Discussed case with hospitalist, (Rabia - he saw the patient in the ER). Reviewed test results and need for additional work-up. Agreed upon treatment plan and decision to admit. Patient/family counseled. Old medical records reviewed. Disposition: Admitted. CLINICAL IMPRESSION Syncope. Dehydration. Nontraumatic rhabdomyolysis. Acute renal insufficiency. (Electronically signed by Thang Colorado MD 09/26/2016 9:05)
--- NOTE | 2016-09-26 04:16 | Progress Note ---
Subjective General Admission History and Physical Examination Patient Name: James Gonzalez Admission Date: September 26, 2016 Primary Care Provider: Harish PÉREZ Attending Physician: Nilesh Camarillo MD Admitting Physician: Nilesh Camarillo M.D. Code Status: FULL CODE Room: 302 Status: Inpatient, CCU SUBJECTIVE Historian: Patient Reliability: Fair Chief Complaint: Syncope, abdominal discomfort History of Present Illness: The patient is a 46-year-old black male with a significant past medical history of pancreatitis, hypertension, hyperlipidemia, who presented to [facility] emergency department on the day of admission secondary to complaints of syncope, nausea, abdominal discomfort. [facility] ER evaluation was consistent with findings of syncope possible vasovagal, hypertension, dehydration, acute renal failure, and rhabdomyolysis. Secondary to the above, the patient was admitted by Nilesh Camarillo M.D. for further evaluation and treatment. PAST MEDICAL HISTORY Illnesses: 1. Hypertension 2. Pancreatitis-recurrent 3. Hyperlipidemia Allergies: 1. Sudafed Medications: 1. Lisinopril Surgery: 1. Right hand 2. Right ankle Injuries: 1. Right hand fracture 2. Right ankle fracture Hospitalizations: 1. For above surgery and episode of pancreatitis FAMILY HISTORY Parents: 1. Father, , 47, renal failure/hepatic failure, 2. Mother, living, 67, pancreatitis, gastroesophageal reflux, hypertension Siblings: 1. The patient has 2 male and 2 female siblings. All these are in good health Children: 1. The patient has 2 male and female children. All of these are in good health Other significant family history: None SOCIAL HISTORY 1. Marital Status: 2. Nondenominational: None 3. Education: 10th grade 4. Employment History: Unemployed 5. Occupational health exposures: None HABITS 1. Tobacco: None 2. Drugs: Marijuana 2 times per week 3. Alcohol: None 4. Caffeine: None HEALTH SUPERVISION Item/Test 1. The patient denies any recent health supervision/maintenance IMMUNIZATIONS: 1. Pneumococcal: No previous 2. Influenza: No previous 3. Tetanus: 2015 ADVANCED DIRECTIVES: 1. Living well: No 2. POLST: No 3. Code Status: FULL CODE 4. 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 Donor card: No REVIEW OF SYSTEMS Remarkable for those things stated in the history of present illness and past medical history. Seventeen point review of system completed with the following notable findings: General: Weight loss Cardiovascular: Hypertension Gastrointestinal: Umbilical hernia Physical Exam Vital Signs / I&Os Blood pressure: 104/54 mmHg Heart rate: 77 Respiratory rate: 16 T: 98.2 Fahrenheit orally Pulse oximetry: 98% room air General Appearance Alert, Oriented X3, Cooperative, No acute distress HEENT PERRLA, EOMI, Moist mucous membranes Lungs Clear to auscultation, Normal air movement Neck Supple, No JVD, No masses, 2+ carotid pulse wo bruit Cardiovascular Regular rate and rhythm, Normal S1 and S2, No murmurs, gallops, rubs Abdomen Normal bowel sounds, Soft, No guarding, No rebound, Mild (R) sided abdominal tenderness to palpation Extremities No cyanosis, No clubbing, No edema, Normal pulses, No tenderness Skin No Rashes, No Breakdown Neurological Cranial nerves intact, Strength 5/5 x4 ext's, No lateralizing signs Psych/Mental Status Mental status normal, Mood normal LAB Results Laboratory Tests 09/26 09/25 0001 2255 Chemistry Plasma Sodium (136 - 145 mmol/L) 142 Plasma Potassium (3.5 - 5.1 mmol/L) 3.5 Plasma Chloride (98 - 107 mmol/L) 104 CO2 (Enzymatic) (21 - 32 mmol/L) 26 BUN (7 - 18 mg/dL) 29 Creatinine (0.6 - 1.3 mg/dL) 3.0 Est GFR ( Amer) (mL/min) 28.92 Est GFR (Non-Af Amer) (mL/min) 23.86 Glucose (70 - 110 mg/dL) 125 Plasma Calcium (8.5 - 10.1 mg/dL) 8.7 Total Bilirubin (0.0 - 1.0 mg/dL) 0.6 AST (15 - 37 U/L) 44 ALT (12 - 78 U/L) 81 Alkaline Phosphatase (46 - 116 U/L) 75 Creatine Kinase (24 - 260 U/L) 1504 CK-MB (CK-2) (0.5 - 3.2 ng/mL) 9.0 CK/CKMB % Calc (0.0 - 4.0 %) 0.6 Troponin (0.00 - 1.5 ng/mL) 0.00 Total Protein (6.4 - 8.2 g/dL) 7.6 Albumin (3.3 - 5.0 g/dL) 3.9 Amylase (25 - 115 U/L) 84 Lipase (73 - 393 U/L) 225 Hematology WBC (4.5 - 11.5 K/uL) 12.8 RBC (4.50 - 5.90 M/uL) 4.87 Hgb (13.5 - 17.5 gm/dL) 13.5 Hct (41.0 - 53.0 %) 41.6 MCV (80 - 100 fL) 85 MCH (26 - 34 pg) 28 RDW (11.6 - 14.8 %) 13.8 Gran % 72.3 Lymph % (Auto) (25 - 40 %) 22.8 [place] % (Auto) (3 - 14 %) 4.9 Plt Count, EDTA (150 - 400 K/uL) 218 PUBS MCHC (31 - 37 g/dL) 33 Toxicology Plasma/Serum Ethyl Alc (3 - 10 mg/dL) <3 Assessment and Plan Problem List 1. Acute renal failure Plan -The patient presents with findings of acute renal insufficiency -BUN/creatinine 29/3.0 -IV fluid therapy -Abdominal ultrasound -Monitor 2. Dehydration Status Acute Onset Date Unknown Plan -Patient presents with findings consistent with dehydration -IV fluid therapy -Monitor 3. Elevated liver function tests Status Acute Onset Date Unknown Plan -The patient presents with mild elevation in LFTs -Chek abdominal ultrasound -Monitor -Amylase and lipase within normal limits 4. Hyperglycemia Status Acute Onset Date Unknown Plan -Patient presents with findings of mild elevation of glucose -Glucose 118 mg/dL -Check hemoglobin A1c 5. Rhabdomyolysis Status Acute Onset Date Unknown Plan -Patient presents with findings of rhabdomyolysis -IV fluid therapy -Monitor -Questionable etiology possibly trauma secondary to fall 6. Hypotension Status Acute Onset Date Unknown Plan -Patient presents with findings consistent with dehydration in the setting of antihypertensive therapy -IV fluid therapy -Hold antihypertensives -Monitor 7. Syncope Status Acute Onset Date Unknown Plan -Patient presents with findings of syncope -Head contusion -CT head unremarkable -Symptoms consistent with vasovagal syncope in the setting of dehydration and antihypertensive agents. -monitoring and evaluation advisor Current status: Unstable, fair Anticipated discharge date: Anticipated discharge 1-2 days Anticipated discharge placement: Home Patient care time: Time in chart review, patient interview, physical exam, CPOE, and care documentation: 70 mins Visit to patient today: 2 Complexity of care: High DVT prophylaxis: SCD E&M Codes Admission: Inpt-High/31989
--- NOTE | 2016-09-26 04:16 | Progress Note ---
Subjective General Admission History and Physical Examination Patient Name: James Gonzalez Admission Date: September 26, 2016 Primary Care Provider: Harish PÉREZ Attending Physician: Nilesh Camarillo MD Admitting Physician: Nilesh Camarillo M.D. Code Status: FULL CODE Room: 302 Status: Inpatient, CCU SUBJECTIVE Historian: Patient Reliability: Fair Chief Complaint: Syncope, abdominal discomfort History of Present Illness: The patient is a 46-year-old black male with a significant past medical history of pancreatitis, hypertension, hyperlipidemia, who presented to [facility] emergency department on the day of admission secondary to complaints of syncope, nausea, abdominal discomfort. [facility] ER evaluation was consistent with findings of syncope possible vasovagal, hypertension, dehydration, acute renal failure, and rhabdomyolysis. Secondary to the above, the patient was admitted by Nilesh Camarillo M.D. for further evaluation and treatment. PAST MEDICAL HISTORY Illnesses: 1. Hypertension 2. Pancreatitis-recurrent 3. Hyperlipidemia Allergies: 1. Sudafed Medications: 1. Lisinopril Surgery: 1. Right hand 2. Right ankle Injuries: 1. Right hand fracture 2. Right ankle fracture Hospitalizations: 1. For above surgery and episode of pancreatitis FAMILY HISTORY Parents: 1. Father, , 47, renal failure/hepatic failure, 2. Mother, living, 67, pancreatitis, gastroesophageal reflux, hypertension Siblings: 1. The patient has 2 male and 2 female siblings. All these are in good health Children: 1. The patient has 2 male and female children. All of these are in good health Other significant family history: None SOCIAL HISTORY 1. Marital Status: 2. Druze: None 3. Education: 10th grade 4. Employment History: Unemployed 5. Occupational health exposures: None HABITS 1. Tobacco: None 2. Drugs: Marijuana 2 times per week 3. Alcohol: None 4. Caffeine: None HEALTH SUPERVISION Item/Test 1. The patient denies any recent health supervision/maintenance IMMUNIZATIONS: 1. Pneumococcal: No previous 2. Influenza: No previous 3. Tetanus: 2015 ADVANCED DIRECTIVES: 1. Living well: No 2. POLST: No 3. Code Status: FULL CODE 4. Durable Power Attache Health care: No 5. Donor card: No REVIEW OF SYSTEMS Remarkable for those things stated in the history of present illness and past medical history. Seventeen point review of system completed with the following notable findings: General: Weight loss Cardiovascular: Hypertension Gastrointestinal: Umbilical hernia Physical Exam Vital Signs / I&Os Blood pressure: 104/54 mmHg Heart rate: 77 Respiratory rate: 16 T: 98.2 Fahrenheit orally Pulse oximetry: 98% room air General Appearance Alert, Oriented X3, Cooperative, No acute distress HEENT PERRLA, EOMI, Moist mucous membranes Lungs Clear to auscultation, Normal air movement Neck Supple, No JVD, No masses, 2+ carotid pulse wo bruit Cardiovascular Regular rate and rhythm, Normal S1 and S2, No murmurs, gallops, rubs Abdomen Normal bowel sounds, Soft, No guarding, No rebound, Mild (R) sided abdominal tenderness to palpation Extremities No cyanosis, No clubbing, No edema, Normal pulses, No tenderness Skin No Rashes, No Breakdown Neurological Cranial nerves intact, Strength 5/5 x4 ext's, No lateralizing signs Psych/Mental Status Mental status normal, Mood normal LAB Results Laboratory Tests 09/26 09/25 0001 2255 Chemistry Plasma Sodium (136 - 145 mmol/L) 142 Plasma Potassium (3.5 - 5.1 mmol/L) 3.5 Plasma Chloride (98 - 107 mmol/L) 104 CO2 (Enzymatic) (21 - 32 mmol/L) 26 BUN (7 - 18 mg/dL) 29 Creatinine (0.6 - 1.3 mg/dL) 3.0 Est GFR ( Amer) (mL/min) 28.92 Est GFR (Non-Af Amer) (mL/min) 23.86 Glucose (70 - 110 mg/dL) 125 Plasma Calcium (8.5 - 10.1 mg/dL) 8.7 Total Bilirubin (0.0 - 1.0 mg/dL) 0.6 AST (15 - 37 U/L) 44 ALT (12 - 78 U/L) 81 Alkaline Phosphatase (46 - 116 U/L) 75 Creatine Kinase (24 - 260 U/L) 1504 CK-MB (CK-2) (0.5 - 3.2 ng/mL) 9.0 CK/CKMB % Calc (0.0 - 4.0 %) 0.6 Troponin (0.00 - 1.5 ng/mL) 0.00 Total Protein (6.4 - 8.2 g/dL) 7.6 Albumin (3.3 - 5.0 g/dL) 3.9 Amylase (25 - 115 U/L) 84 Lipase (73 - 393 U/L) 225 Hematology WBC (4.5 - 11.5 K/uL) 12.8 RBC (4.50 - 5.90 M/uL) 4.87 Hgb (13.5 - 17.5 gm/dL) 13.5 Hct (41.0 - 53.0 %) 41.6 MCV (80 - 100 fL) 85 MCH (26 - 34 pg) 28 RDW (11.6 - 14.8 %) 13.8 Gran % 72.3 Lymph % (Auto) (25 - 40 %) 22.8 [place] % (Auto) (3 - 14 %) 4.9 Plt Count, EDTA (150 - 400 K/uL) 218 PUBS MCHC (31 - 37 g/dL) 33 Toxicology Plasma/Serum Ethyl Alc (3 - 10 mg/dL) <3 Assessment and Plan Problem List 1. Acute renal failure Plan -The patient presents with findings of acute renal insufficiency -BUN/creatinine 29/3.0 -IV fluid therapy -Abdominal ultrasound -Monitor 2. Dehydration Status Acute Onset Date Unknown Plan -Patient presents with findings consistent with dehydration -IV fluid therapy -Monitor 3. Elevated liver function tests Status Acute Onset Date Unknown Plan -The patient presents with mild elevation in LFTs -Chek abdominal ultrasound -Monitor -Amylase and lipase within normal limits 4. Hyperglycemia Status Acute Onset Date Unknown Plan -Patient presents with findings of mild elevation of glucose -Glucose 118 mg/dL -Check hemoglobin A1c 5. Rhabdomyolysis Status Acute Onset Date Unknown Plan -Patient presents with findings of rhabdomyolysis -IV fluid therapy -Monitor -Questionable etiology possibly trauma secondary to fall 6. Hypotension Status Acute Onset Date Unknown Plan -Patient presents with findings consistent with dehydration in the setting of antihypertensive therapy -IV fluid therapy -Hold antihypertensives -Monitor 7. Syncope Status Acute Onset Date Unknown Plan -Patient presents with findings of syncope -Head contusion -CT head unremarkable -Symptoms consistent with vasovagal syncope in the setting of dehydration and antihypertensive agents. -radiation monitor Current status: Unstable, fair Anticipated discharge date: Anticipated discharge 1-2 days Anticipated discharge placement: Home Patient care time: Time in chart review, patient interview, physical exam, CPOE, and care documentation: 70 mins Visit to patient today: 2 Complexity of care: High DVT prophylaxis: SCD E&M Codes Admission: Inpt-High/28209
[2016-09-26] MEDS ORDERED: PRINIVIL5 MG PO (04:51)
[2016-09-26] MEDS ORDERED: HYDROCHLOROTH12.5 MG PO ×2 (04:52)
[2016-09-26] MEDS ORDERED: LISINOPRIL10 MG PO ×2 (06:04)
--- NOTE | 2016-09-26 06:57 | DIAGNOSTIC IMAGING REPORT ---
PROCEDURE: XR CHEST 1 VIEW INDICATION: SYNCOPE TECHNIQUE: Portable AP view (0105 hours). COMPARISON: None. FINDINGS: Allowing for suboptimal inspiration, lungs are clear with mild elevation of the right hemidiaphragm (most likely chronic). Heart and mediastinum are normal. Thorax is normal. IMPRESSION: 1. Negative chest.
--- NOTE | 2016-09-26 06:59 | DIAGNOSTIC IMAGING REPORT ---
PROCEDURE: US ABDOMEN ULTRASOUND-LIMITED INDICATION: Right upper quadrant pain. TECHNIQUE: Quintanilla scale and color Doppler sonographic images of the abdomen were obtained. COMPARISON: None. FINDINGS: Study is partially limited due to body habitus. Gallbladder is normal. No evidence of gallstones. Common duct is normal (4 mm). Portions of the liver, and right kidney are seen, and are normal. IMPRESSION: 1. Negative ultrasound of the gallbladder and right upper quadrant.
--- NOTE | 2016-09-26 07:02 | DIAGNOSTIC IMAGING REPORT ---
PROCEDURE: CT HEAD WITHOUT CONTRAST INDICATION: SYNCOPE TECHNIQUE: Noncontrast axial images with sagittal and coronal reformations. Preliminary report provided by Abdiel Nowak MD ([facility]). COMPARISON: None. FINDINGS: Allowing for mild motion, brain and ventricles are normal. No evidence of an acute process or hemorrhage. Sinuses and mastoids are normal. IMPRESSION: 1. Negative head CT. All CT scans at this facility use dose modulation, iterative reconstruction, and/or weight-based dosing when appropriate to reduce radiation dose to as low as reasonably achievable.
--- NOTE | 2016-09-26 07:02 | DIAGNOSTIC IMAGING REPORT ---
PROCEDURE: CT HEAD WITHOUT CONTRAST INDICATION: SYNCOPE TECHNIQUE: Noncontrast axial images with sagittal and coronal reformations. Preliminary report provided by Abdiel Nowak MD ([facility]). COMPARISON: None. FINDINGS: Allowing for mild motion, brain and ventricles are normal. No evidence of an acute process or hemorrhage. Sinuses and mastoids are normal. IMPRESSION: 1. Negative head CT. All CT scans at this facility use dose modulation, iterative reconstruction, and/or weight-based dosing when appropriate to reduce radiation dose to as low as reasonably achievable.
--- NOTE | 2016-09-26 09:06 | ED MED RECONCILIATION SUMMARY ---
Patient: MARIA LUISA RAIN Medication Reconciliation Report [facility] VisitID: [id number] [address] [place] [address] 46y, M Registration Date/Time: 09/25/2016 Weight: 104.3 kg Height/Length: 76 in. BMI: 28.0 ALLERGIES: Sudafed The patient's Home Medications are listed below: THE FOLLOWING MEDICATIONS NEED TO BE RECONCILED: Hydrochlorothiazide Oral Lisinopril Oral The source(s) of the original Home Medication information: Not obtained. The following Medications were given to the patient in the Emergency Department: IV NS IV Fluids bolus 1000 mL over 1 hour(s), then 1000 mL/hr, administered: 09/25/2016 11:58:00 PM PROTONIX [IVP] IVP 40 mg, administered: 09/26/2016 12:02:00 AM Zofran [IVP] IVP 4 mg, administered: 09/26/2016 1:21:00 AM IV NS IV Fluids bolus 0, then 200 mL/hr, administered: 09/26/2016 3:25:00 AM The following Medications were prescribed to the patient: None.
--- NOTE | 2016-09-26 09:06 | ED MAR SUMMARY ---
..... Medication Administration Record [facility] [address] [place] [address] Patient: MARIA LUISA RAIN Visit ID: [id number] 46y, M Weight: 104.3 kg Height/Length: 76 in BMI: 28 ALLERGIES: Sudafed Start 23:58 09/25/2016 Rut Candelaria R.N., Stop 01:00 09/26/2016 Rut Candelaria R.N. Medication Administered: IV NS (SALINE), Dose: IV Fluids over 1 hour(s), Rate: 1000 mL/hr, Bolus: 1000 mL over 1 hour(s), Dispensed: 1000 mL bag, Site: #1 left AC. Medication Ordered: IV NS : initial bolus 1000 mL (1000 mL/hr), then 1000 mL/hr for X2 (NOW); Urgent. Given 00:02 09/26/2016 Rut Candelaria R.N. Medication Administered: PROTONIX [IVP] (PANTOPRAZOLE SODIUM), Dose: 40 mg IVP over 2 minute(s), Site: #1 left AC. Medication Ordered: Protonix IVP 40mg 40 mg (Mix in NS 10ml over 2min). Given 01:21 09/26/2016 Rut Candelaria R.N. Medication Administered: ZOFRAN [IVP] (ONDANSETRON HCL), Dose: 4 mg IVP over 1 minute(s), Site: #1 left AC. Medication Ordered: Zofran IV 4 mg (NOW). Start 03:25 09/26/2016 Rut Candelaria R.N. Medication Administered: IV NS (SALINE), Dose: IV Fluids over 4 hour(s), Rate: 200 mL/hr, Dispensed: 1000 mL bag, Site: #2 right AC. Medication Ordered: IV NS : initial bolus none -, then 200 mL/hr for 4h (NOW); Urgent.
--- NOTE | 2016-09-26 09:06 | ED DISCHARGE INSTRUCTIONS ---
Patient: MARIA LUISA RAIN General Instructions [facility] VisitID: [id number] [place] [address] 46y, M Registration Date/Time: 09/25/2016 Syncope. Dehydration. Nontraumatic rhabdomyolysis. Acute renal insufficiency. ADDITIONAL INFORMATION Renal Insufficiency The role of the kidneys is to remove waste products and excess water from the body. When the kidneys do not function normally, waste products build up in the blood.The early stage of this process is called renal insufficiency . If renal insufficiency worsens it can lead to chronic renal failure. This allows excess water, waste and toxic substances to build up in the body. This can become a threat to life, requiring dialysis or a kidney transplant to stay alive. Diabetes is the leading causes of renal insufficiency. Other causes include high blood pressure, hardening of the arteries, lupus, inflammation of the blood vessels (vasculitis), prior viral and bacterial infections, and others. Certain wurz-hme-skhlatx pain medicines can cause renal failure when taken often over a long period of time. These include aspirin, ibuprofen (Advil, Motrin) and related anti-inflammatory medicines. Home Care: If you have diabetes, talk to your doctor about the quality of your blood sugar control.Ask about any changes needed to your diet or medicines. If you have high blood pressure: Take your blood pressure medicine. Take up a regular exercise program that you enjoy.Check with your doctor to be sure your planned exercise program is right for you. Reduce your salt (sodium) intake.Your doctor can tell you how much salt per day is safe for you. If you are overweight, talk to your doctor about a weight loss plan. If you smoke, you must quit.Smoking worsens kidney disease.Talk to your doctor about ways to help you quit.For more information, visit the following links: www.smokefree.gov/pubs/clearing_the_air.pdf www.smokefree.gov www.quitnet.com Talk to your doctor about any dietary restrictions advised. In general, it is advisable to limit protein, salt, potassium and phosphorus.Avoid excess fluids. Do not add salt at the table and avoid salty foods.A calcium supplement may be prescribed to protect your bones from osteoporosis. Avoid the following over the counter medicines, or consult your doctor before using: Aspirin and anti-inflammatory drugs such as ibuprofen (Advil, Motrin), naprosyn (Aleve); [Short term use of acetaminophen (Tylenol) for fever or pain is okay.] Laxatives and antacids containing magnesium or aluminum (Mylanta, Maalox) Avoid Fleet or phosphosoda enemas which contain phosphorus Certain stomach acid-blocking medicine such as cimetidine (Tagamet), ranitidine (Zantac) Decongestants containing pseudoephedrine (such as some forms of Sudafed or Actifed) Herbal supplements Follow Up with your doctor or as advised by our staff. Contact one of the following for more information. [employer] [phone] www.aakp.org National Kidney Foundation www.kidney.org Return Promptly or contact your doctor if any of the following occurs: Nausea or vomiting Severe weakness, dizziness, fainting, drowsiness or confusion Chest pain or shortness of breath Unexpected weight gain or swelling in the legs, ankles or around the eyes Heart beating fast, slow or irregularly Decrease or loss in urine output You have been given the following additional information: Renal Insufficiency (Electronically signed by Thang Colorado MD 09/26/2016 9:05)
--- NOTE | 2016-09-26 09:06 | ED DISCHARGE INSTRUCTIONS ---
Patient: MARIA LUISA RAIN General Instructions [facility] VisitID: [id number] [place] [address] 46y, M Registration Date/Time: 09/25/2016 Syncope. Dehydration. Nontraumatic rhabdomyolysis. Acute renal insufficiency. ADDITIONAL INFORMATION Renal Insufficiency The role of the kidneys is to remove waste products and excess water from the body. When the kidneys do not function normally, waste products build up in the blood.The early stage of this process is called renal insufficiency . If renal insufficiency worsens it can lead to chronic renal failure. This allows excess water, waste and toxic substances to build up in the body. This can become a threat to life, requiring dialysis or a kidney transplant to stay alive. Diabetes is the leading causes of renal insufficiency. Other causes include high blood pressure, hardening of the arteries, lupus, inflammation of the blood vessels (vasculitis), prior viral and bacterial infections, and others. Certain bikg-hpt-vhstpud pain medicines can cause renal failure when taken often over a long period of time. These include aspirin, ibuprofen (Advil, Motrin) and related anti-inflammatory medicines. Home Care: If you have diabetes, talk to your doctor about the quality of your blood sugar control.Ask about any changes needed to your diet or medicines. If you have high blood pressure: Take your blood pressure medicine. Take up a regular exercise program that you enjoy.Check with your doctor to be sure your planned exercise program is right for you. Reduce your salt (sodium) intake.Your doctor can tell you how much salt per day is safe for you. If you are overweight, talk to your doctor about a weight loss plan. If you smoke, you must quit.Smoking worsens kidney disease.Talk to your doctor about ways to help you quit.For more information, visit the following links: www.smokefree.gov/pubs/clearing_the_air.pdf www.smokefree.gov www.quitnet.com Talk to your doctor about any dietary restrictions advised. In general, it is advisable to limit protein, salt, potassium and phosphorus.Avoid excess fluids. Do not add salt at the table and avoid salty foods.A calcium supplement may be prescribed to protect your bones from osteoporosis. Avoid the following over the counter medicines, or consult your doctor before using: Aspirin and anti-inflammatory drugs such as ibuprofen (Advil, Motrin), naprosyn (Aleve); [Short term use of acetaminophen (Tylenol) for fever or pain is okay.] Laxatives and antacids containing magnesium or aluminum (Mylanta, Maalox) Avoid Fleet or phosphosoda enemas which contain phosphorus Certain stomach acid-blocking medicine such as cimetidine (Tagamet), ranitidine (Zantac) Decongestants containing pseudoephedrine (such as some forms of Sudafed or Actifed) Herbal supplements Follow Up with your doctor or as advised by our staff. Contact one of the following for more information. [place] [phone] www.aakp.org National Kidney Foundation www.kidney.org Return Promptly or contact your doctor if any of the following occurs: Nausea or vomiting Severe weakness, dizziness, fainting, drowsiness or confusion Chest pain or shortness of breath Unexpected weight gain or swelling in the legs, ankles or around the eyes Heart beating fast, slow or irregularly Decrease or loss in urine output You have been given the following additional information: Renal Insufficiency (Electronically signed by Thang Colorado MD 09/26/2016 9:05)
--- NOTE | 2016-09-26 09:06 | ED MAR SUMMARY ---
..... Medication Administration Record [facility] [address] [place] [address] Patient: MARIA LUISA RAIN Visit ID: [id number] 46y, M Weight: 104.3 kg Height/Length: 76 in BMI: 28 ALLERGIES: Sudafed Start 23:58 09/25/2016 Rut Candelaria R.N., Stop 01:00 09/26/2016 Rut Candelaria R.N. Medication Administered: IV NS (SALINE), Dose: IV Fluids over 1 hour(s), Rate: 1000 mL/hr, Bolus: 1000 mL over 1 hour(s), Dispensed: 1000 mL bag, Site: #1 left AC. Medication Ordered: IV NS : initial bolus 1000 mL (1000 mL/hr), then 1000 mL/hr for X2 (NOW); Urgent. Given 00:02 09/26/2016 Rut Candelaria R.N. Medication Administered: PROTONIX [IVP] (PANTOPRAZOLE SODIUM), Dose: 40 mg IVP over 2 minute(s), Site: #1 left AC. Medication Ordered: Protonix IVP 40mg 40 mg (Mix in NS 10ml over 2min). Given 01:21 09/26/2016 Rut Candelaria R.N. Medication Administered: ZOFRAN [IVP] (ONDANSETRON HCL), Dose: 4 mg IVP over 1 minute(s), Site: #1 left AC. Medication Ordered: Zofran IV 4 mg (NOW). Start 03:25 09/26/2016 Rut Candelaria R.N. Medication Administered: IV NS (SALINE), Dose: IV Fluids over 4 hour(s), Rate: 200 mL/hr, Dispensed: 1000 mL bag, Site: #2 right AC. Medication Ordered: IV NS : initial bolus none -, then 200 mL/hr for 4h (NOW); Urgent.
--- NOTE | 2016-09-26 09:06 | ED MED RECONCILIATION SUMMARY ---
Patient: MARIA LUISA RAIN Medication Reconciliation Report [facility] VisitID: [id number] [address] [place] [address] 46y, M Registration Date/Time: 09/25/2016 Weight: 104.3 kg Height/Length: 76 in. BMI: 28.0 ALLERGIES: Sudafed The patient's Home Medications are listed below: THE FOLLOWING MEDICATIONS NEED TO BE RECONCILED: Hydrochlorothiazide Oral Lisinopril Oral The source(s) of the original Home Medication information: Not obtained. The following Medications were given to the patient in the Emergency Department: IV NS IV Fluids bolus 1000 mL over 1 hour(s), then 1000 mL/hr, administered: 09/25/2016 11:58:00 PM PROTONIX [IVP] IVP 40 mg, administered: 09/26/2016 12:02:00 AM Zofran [IVP] IVP 4 mg, administered: 09/26/2016 1:21:00 AM IV NS IV Fluids bolus 0, then 200 mL/hr, administered: 09/26/2016 3:25:00 AM The following Medications were prescribed to the patient: None.
[2016-09-26] MEDS ORDERED: FAMOTIDINE20 MG PO ×2 (11:53)
[2016-09-26] MEDS ORDERED: PANTOPRAZOLE SO40 MG PO ×2 (11:53)
--- NOTE | 2016-09-26 16:22 | DIAGNOSTIC IMAGING REPORT ---
PROCEDURE: CT ABD/PELVIS WITH CONTRAST INDICATION: Abdominal pain. Recent diagnosis of pancreatitis. TECHNIQUE: 75 ml of Isovue 300 were injected intravenously and axial images were obtained of the entire abdomen and pelvis with sagittal and coronal reformations. (One half-dose intravenous contrast due to borderline GFR 45 - - normal BUN and creatinine. COMPARISON: Comparison made abdominal ultrasound on 09/26/2016 and outside report of CT abdomen and pelvis from [facility] [place] in [place] on 09/10/2016 (images unavailable). FINDINGS: ABDOMEN: Gallbladder, liver, spleen, pancreas, kidneys, and aorta are normal. Bowel pattern is normal, including appendix. PELVIS: Pelvic structures are normal. No evidence of free fluid. IMPRESSION: 1. Negative CT abdomen and pelvis. 2. No evidence of pancreatitis. 3. Findings discussed with Dr. Marvin De Oliveira. All CT scans at this facility use dose modulation, iterative reconstruction, and/or weight-based dosing when appropriate to reduce radiation dose to as low as reasonably achievable.
--- NOTE | 2016-09-26 16:22 | DIAGNOSTIC IMAGING REPORT ---
PROCEDURE: CT ABD/PELVIS WITH CONTRAST INDICATION: Abdominal pain. Recent diagnosis of pancreatitis. TECHNIQUE: 75 ml of Isovue 300 were injected intravenously and axial images were obtained of the entire abdomen and pelvis with sagittal and coronal reformations. (One half-dose intravenous contrast due to borderline GFR 45 - - normal BUN and creatinine. COMPARISON: Comparison made abdominal ultrasound on 09/26/2016 and outside report of CT abdomen and pelvis from [facility] in [place] on 09/10/2016 (images unavailable). FINDINGS: ABDOMEN: Gallbladder, liver, spleen, pancreas, kidneys, and aorta are normal. Bowel pattern is normal, including appendix. PELVIS: Pelvic structures are normal. No evidence of free fluid. IMPRESSION: 1. Negative CT abdomen and pelvis. 2. No evidence of pancreatitis. 3. Findings discussed with Dr. Marvin De Oliveira. All CT scans at this facility use dose modulation, iterative reconstruction, and/or weight-based dosing when appropriate to reduce radiation dose to as low as reasonably achievable.
[2016-09-26] MEDS ORDERED: NORVASC5 MG PO ×2 (17:11)
--- NOTE | 2016-09-26 17:13 | Provider's Discharge Care Plan ---
Problem, Goal, Plan Problem List 1. Rhabdomyolysis Goals: Improve disease control, Prevent disease progress Instructions: Follow up as directed, Take meds as directed, Avoid processed foods, Drink at least 3 L of fluid per day over the next week 2. Hypertension Goals: Improve disease control, Prevent disease progress Instructions: Follow up as directed, Take meds as directed, Avoid processed foods, follow a low-salt diet. Have your blood pressure rechecked within the next 3-5 days with your family physician 3. Dehydration Goals: Improve disease control, Prevent disease progress Instructions: Follow up as directed, Take meds as directed, Avoid processed foods, Clinic at least 3 L of fluid per day for the next week.
[2016-09-26] MEDS ORDERED: ULTRAM EQIVALEN50 MG PO (17:15)
--- NOTE | 2016-09-26 17:21 | Discharge Summary ---
Discharge Summary Report Admit Date 09/26/16 Discharge Date 09/26/16 Admission Diagnosis 1. Syncope 2. Dehydration 3. Hypotension 4. Acute renal failure 5. Rhabdomyolysis 6. Hyperglycemia Discharge Diagnosis 1. Syncope-vasovagal 2. Dehydration-improved 3. Hypotension-resolved 4. Acute renal failure-improved 5. Rhabdomyolysis-improved 6. Hyperglycemia-resolved 7. Abdominal pain Brief History The patient is a 46-year-old black male with a significant past medical history of pancreatitis, hypertension, hyperlipidemia, who presented to [facility] emergency department on the day of admission secondary to complaints of syncope, nausea, abdominal discomfort. [facility] ER evaluation was consistent with findings of syncope possible vasovagal, hypotension, dehydration, acute renal failure, and rhabdomyolysis. Secondary to the above, the patient was admitted by Nilesh Camarillo M.D. for further evaluation and treatment. For other history present illness, past medical history, family history, social history, review of systems, and admission physical examination please see the patient's history and physical examination and ER visit note in the patient's medical record. Hospital Course The following problems and their management were noted during the patient's hospitalization: 1. Syncope-vasovagal The patient presented with history of syncope. This occurred following nausea, diaphoresis and episode of lightheadedness when patient suddenly olimpia with syncopal episode following this. No cardiac arrhythmias noted. Orthostatic blood pressure checks unremarkable. It was felt his syncope most likely represents vasovagal syncope. Outpatient follow up with PCP. The patient experienced contusion to head with syncopal episode. CT scan was unremarkable of the head. 2. Dehydration-improved The patient presented with findings of dehydration. He recently been placed on RIP inhibitor/diuretic. He is known to have elevation of BUN/creatinine at the time of admission which improved during his hospital stay. He is taking orally well prior to discharge. He experienced no further nausea vomiting but experienced mild persistent abdominal pain. He was encouraged to drink at least 3 L of liquids per day post discharge. 3. Hypotension-resolved The patient presented with findings of hypotension. This was in the setting of dehydration with recent use of diuretics and Rip inhibitors. This resolved soon after admission with the use of IV fluids. He is normotensive at the time of discharge. His orthostatic blood pressure checks were within normal limits. He was discharged on altered antihypertensive regimen in the form of Norvasc 10 mg by mouth daily. He will follow-up with his PCP next week for repeat blood pressure check. 4. Acute renal failure-improved The patient presented with elevation of BUN/creatinine. These improved quickly with IV fluid therapy. It was felt the most likely represented minimal renal insufficiency. The patient was encouraged to drink at least 3 L of fluid per day post discharge. CT scan of abdomen and pelvis and abdominal ultrasound were unremarkable. No signs of renal abnormalities/ureteral abnormalities. Outpatient follow-up with PCP. 5. Rhabdomyolysis-improved The patient was noted to have findings of rhabdomyolysis. This improved with hydration. The patient was encouraged to pursue consumption of 3 L per day of liquids post discharge. 6. Hyperglycemia-resolved The patient had findings of mild hyperglycemia. This resolved during his hospital stay. 7. Abdominal pain The patient has a history of chronic abdominal pain recently. He has had biochemical markers of pancreatitis in the past. This is not prominent at this time. The patient underwent workup which included CT of abdomen and pelvis and abdominal ultrasound. These showed no abnormalities of the pancreas or other intra-abdominal pathology. The patient is scheduled to follow-up with [facility]. I've encouraged him to follow-up with that appointment. Should he have further abdominal complaints he should contact [facility] for follow-up with further evaluation at that institution. The patient was placed on Protonix 40 mg by mouth twice a day at the time of discharge until seen by [facility]. Lab/Imaging Laboratory Tests 09/26 09/26 09/26 09/26 09/26 1409 1300 0705 0705 0700 Chemistry Plasma Sodium (136 - 145 mmol/L) 142 143 Plasma Potassium (3.5 - 5.1 mmol/L) 3.6 4.0 Plasma Chloride (98 - 107 mmol/L) 108 110 CO2 (Enzymatic) (21 - 32 mmol/L) 28 24 BUN (7 - 18 mg/dL) 22 27 Creatinine (0.6 - 1.3 mg/dL) 1.7 2.1 Est GFR ( Amer) (mL/min) 55.69 43.64 Est GFR (Non-Af Amer) (mL/min) 45.95 36.01 Glucose (70 - 110 mg/dL) 86 118 Hemoglobin A1c % (4.5 - 6.2 %) 6.0 Plasma Calcium (8.5 - 10.1 mg/dL) 7.4 7.6 Total Bilirubin (0.0 - 1.0 mg/dL) 0.3 AST (15 - 37 U/L) 32 ALT (12 - 78 U/L) 65 Alkaline Phosphatase (46 - 116 U/L) 63 Creatine Kinase (24 - 260 U/L) 980 1131 CK-MB (CK-2) (0.5 - 3.2 ng/mL) 5.1 6.3 CK/CKMB % Calc (0.0 - 4.0 %) 0.5 0.6 Total Protein (6.4 - 8.2 g/dL) 6.2 Albumin (3.3 - 5.0 g/dL) 3.1 Triglycerides (30 - 200 mg/dL) 77 Cancelled Cholesterol (140 - 200 mg/dL) 191 Cancelled LDL Cholesterol, Calc (mg/dL) 136 Cancelled HDL Cholesterol (32 - 96 mg/dL) 40 Cancelled LDL/HDL Ratio 3.4 Cancelled Cholesterol/HDL Ratio 4.8 Cancelled Coronary Risk Interp (0.4 - 1.0) 1.1 Cancelled Amylase (25 - 115 U/L) 68 Hematology WBC (4.5 - 11.5 K/uL) 9.1 RBC (4.50 - 5.90 M/uL) 4.21 Hgb (13.5 - 17.5 gm/dL) 11.9 Hct (41.0 - 53.0 %) 35.8 MCV (80 - 100 fL) 85 MCH (26 - 34 pg) 28 RDW (11.6 - 14.8 %) 13.7 Neut % (Auto) (50 - 75 %) 58 Lymph % (Auto) (25 - 40 %) 34 [place] % (Auto) (3 - 14 %) 5 Eos % (Auto) (0 - 4 %) 3 Baso % (Auto) (0 - 2 %) 0 Band Neutrophils % (0 - 8 %) 0 Metamyelocytes % (0 - 1 %) 0 Myelocytes (0 - 1 %) 0 Other Cell Type 0 Plt Count, EDTA (150 - 400 K/uL) 181 PUBS MCHC (31 - 37 g/dL) 33 09/26 09/26 09/25 09/25 0700 0001 2344 2255 Chemistry Plasma Sodium (136 - 145 mmol/L) 142 Plasma Potassium (3.5 - 5.1 mmol/L) 3.5 Plasma Chloride (98 - 107 mmol/L) 104 CO2 (Enzymatic) (21 - 32 mmol/L) 26 BUN (7 - 18 mg/dL) 29 Creatinine (0.6 - 1.3 mg/dL) 3.0 Est GFR ( Amer) (mL/min) 28.92 Est GFR (Non-Af Amer) (mL/min) 23.86 Glucose (70 - 110 mg/dL) 125 Plasma Calcium (8.5 - 10.1 mg/dL) 8.7 Total Bilirubin (0.0 - 1.0 mg/dL) 0.6 AST (15 - 37 U/L) 44 ALT (12 - 78 U/L) 81 Alkaline Phosphatase (46 - 116 U/L) 75 Creatine Kinase (24 - 260 U/L) 1504 CK-MB (CK-2) (0.5 - 3.2 ng/mL) 9.0 CK/CKMB % Calc (0.0 - 4.0 %) 0.6 Troponin (0.00 - 1.5 ng/mL) 0.00 Total Protein (6.4 - 8.2 g/dL) 7.6 Albumin (3.3 - 5.0 g/dL) 3.9 Amylase (25 - 115 U/L) Cancelled 84 Lipase (73 - 393 U/L) 225 Hematology WBC (4.5 - 11.5 K/uL) 12.8 RBC (4.50 - 5.90 M/uL) 4.87 Hgb (13.5 - 17.5 gm/dL) 13.5 Hct (41.0 - 53.0 %) 41.6 MCV (80 - 100 fL) 85 MCH (26 - 34 pg) 28 RDW (11.6 - 14.8 %) 13.8 Gran % 72.3 Lymph % (Auto) (25 - 40 %) 22.8 [place] % (Auto) (3 - 14 %) 4.9 Plt Count, EDTA (150 - 400 K/uL) 218 PUBS MCHC (31 - 37 g/dL) 33 Toxicology Urine Opiates Screen Cancelled Urine Methadone Screen Cancelled Ur Barbiturates Screen Cancelled U Amphetamin/Meth Scrn Cancelled MDMA (Ecstasy) Screen Cancelled U Benzodiazepines Scrn Cancelled Urine Cocaine Screen Cancelled U Cannabinoids Screen Cancelled Plasma/Serum Ethyl Alc (3 - 10 mg/dL) <3 Urines Urine Color Cancelled Urine Appearance Cancelled Urine pH Cancelled Ur Specific [place] Cancelled Urine Protein Cancelled Urine Ketones Cancelled Urine Blood Cancelled Urine Nitrite Cancelled Urine Bilirubin Cancelled Urine Urobilinogen Cancelled Ur Leukocyte Esterase Cancelled Urine RBC Cancelled Urine WBC Cancelled Ur Epithelial Cells Cancelled Urine Bacteria Cancelled Urine Glucose Cancelled Microbiology Date/Time Procedure - Status Source Growth 09/26 0850 MRSA Screen - RECD NASAL Discharge Instructions/Meds For other recommendations regarding discharge diet, activity, followup, and discharge medications please see the patient's discharge instructions. Discharge condition: Fair, improved Greater than 30 min. was spent in the patient's discharge preparation including discharge interview and physical examination, progress note, discharge instructions, and discharge summary The patient was interviewed and examined on the day of discharge. E&M Codes Admit & Discharge: Comp/High/[id number]
[2016-09-26] MEDS ORDERED: TRAMADOL HCL50 MG PO ×2 (18:00)
== END 2016-09-26 18:35 | disposition home or self-care (01) | DRG 351 ==
LOC: ED SRH 23:38 → TRANS SRH 09-26 03:13 → CC SRH 09-26 03:13
PROVIDERS: ADMIT Internal Medicine
DX: M62.82 Rhabdomyolysis (principal); N17.9 Acute kidney failure, unspecified; E86.0 Dehydration; I95.2 Hypotension due to drugs; T46.5X5A Adverse effect of other antihypertensive drugs, initial encounter; R55 Syncope and collapse; S00.03XA Contusion of scalp, initial encounter; W18.30XA Fall on same level, unspecified, initial encounter; Y92.002 Bathroom of unspecified non-institutional (private) residence as the place of occurrence of the external cause; Y99.8 Other external cause status; R10.9 Unspecified abdominal pain; R73.9 Hyperglycemia, unspecified; R74.8 Abnormal levels of other serum enzymes
CPT/HCPCS: 90047; 90074; 90098; 90100; 90616; 90617; 91286; 91295; 91672; 92010; 92132; 92235; 92530; 92610; 92690; 95059; 95061

== ENCOUNTER 2016-09-27 15:52 | Emergency (ER) | payer OTHER ==
[~2016-09-27 15:52] MED LIST: FAMOTIDINE20 MG PO; HYDROCHLOROTH12.5 MG PO; LISINOPRIL10 MG PO; NORVASC5 MG PO; PANTOPRAZOLE SO40 MG PO; PRINIVIL5 MG PO; TRAMADOL HCL50 MG PO; ULTRAM EQIVALEN50 MG PO
--- NOTE | 2016-09-27 19:59 | ED ORDER SUMMARY ---
..... Patient: MARIA LUISA RAIN OrderSheet [facility] VisitID: [id number] [place] [address] 46y, M Registration Date/Time: 09/27/2016 ORDER SHEET Weight: 132.9 kg (stated) Allergies: Sudafed GENERAL ORDERS: EKG - ER Stat (16:09/27/2016 Marquise R.N. per protocol) (16:26 JSsuzieck R.N.) POC Glucose (16:09/27/2016 JSsuzieck R.N. per protocol) (16:26 Justinoeck R.N.) CBC w Diff Urgent (16:35 09/27/2016 Sam Varner) (16:43 LWhaljennifer R.N.) CMP Urgent (16:35 09/27/2016 Sam Varner) (16:43 LWhalen R.N.) UA-Culture if indicated Urgent (16:35 09/27/2016 Sam Varner) (Ack 16:46 Atul) (19:00 LWhalen R.N.) CPK Urgent (16:35 09/27/2016 Sam Varner) (16:43 LWhaljennifer R.N.) Urine Drug Screen Urgent (16:35 09/27/2016 Sam Varner) (Ack 16:46 Atul) (19:00 LWhalen R.N.) Amylase Urgent (16:35 09/27/2016 Sam Varner) (16:43 LWhaljennifer R.N.) Lipase Urgent (16:35 09/27/2016 Sam Varner) (16:43 LWhalen R.N.) MEDICATION ORDERS: Acetaminophen PO 1,000 mg (NOW) (16:44 09/27/2016 Sam Varner) (16:46 LWhaljennifer R.N.) Potassium Chloride PO 20 meq (NOW) (18:26 09/27/2016 Sam Varner) (19:00 LWhaljennifer R.N.) Famotidine PO 40 mg (NOW) (19:04 09/27/2016 Sam Varner) (19:15 LWhaljennifer R.N.) IV FLUIDS: IV NS : initial bolus none -, then 1000 mL/hr for X1 (NOW) (16:34 09/27/2016 Sam Varner) (16:42 LWhaljennifer R.N.) Zofran IV 4 mg (NOW) (16:35 09/27/2016 Sam Varner) (16:43 LWhaljennifer R.N.) ORDER SHEET NOTES: [Electronically signed by Cielo Holt (00:43 09/28/2016)] [Electronically signed by Mat Hahn Dr. (09:20 09/30/2016)] [Electronically locked/signed by Cielo Holt (00:43 09/28/2016)]
--- NOTE | 2016-09-27 19:59 | ED ORDER SUMMARY ---
..... Patient: MARIA LUISA RAIN OrderSheet [facility] VisitID: [id number] [place] [address] 46y, M Registration Date/Time: 09/27/2016 ORDER SHEET Weight: 132.9 kg (stated) Allergies: Sudafed GENERAL ORDERS: EKG - ER Stat (16:09/27/2016 Marquise R.N. per protocol) (16:26 JSsuzieck R.N.) POC Glucose (16:09/27/2016 JSsuzieck R.N. per protocol) (16:26 Justinoeck R.N.) CBC w Diff Urgent (16:35 09/27/2016 Sam Varner) (16:43 LWhaljennifer R.N.) CMP Urgent (16:35 09/27/2016 Sam Varner) (16:43 LWhalen R.N.) UA-Culture if indicated Urgent (16:35 09/27/2016 Sam Varner) (Ack 16:46 Atul) (19:00 LWhalen R.N.) CPK Urgent (16:35 09/27/2016 Sam Varner) (16:43 LWhaljennifer R.N.) Urine Drug Screen Urgent (16:35 09/27/2016 Sam Varner) (Ack 16:46 Atul) (19:00 LWhalen R.N.) Amylase Urgent (16:35 09/27/2016 Sam Varner) (16:43 LWhaljennifer R.N.) Lipase Urgent (16:35 09/27/2016 Sam Varner) (16:43 LWhalen R.N.) MEDICATION ORDERS: Acetaminophen PO 1,000 mg (NOW) (16:44 09/27/2016 Sam Varner) (16:46 LWhaljennifer R.N.) Potassium Chloride PO 20 meq (NOW) (18:26 09/27/2016 Sam Varner) (19:00 LWhaljennifer R.N.) Famotidine PO 40 mg (NOW) (19:04 09/27/2016 Sam Varner) (19:15 LWhaljennifer R.N.) IV FLUIDS: IV NS : initial bolus none -, then 1000 mL/hr for X1 (NOW) (16:34 09/27/2016 Sam Varner) (16:42 LWhaljennifer R.N.) Zofran IV 4 mg (NOW) (16:35 09/27/2016 Sam Varner) (16:43 LWhaljennifer R.N.) ORDER SHEET NOTES: [Electronically signed by Cielo Holt (00:43 09/28/2016)] [Electronically signed by Mat Hahn Dr. (09:20 09/30/2016)] [Electronically locked/signed by Cielo Holt (00:43 09/28/2016)]
--- NOTE | 2016-09-27 19:59 | ED CLINICAL REPORT ---
Clinical Report - Physicians/Mid Levels [facility] [address] [place] [address] 09/27/2016 15:53 Patient: MARIA LUISA RAIN Time Seen: 16:08; initial patient contact. Arrived- By private vehicle. Historian- patient. HISTORY OF PRESENT ILLNESS Chief Complaint: NEAR-SYNCOPE. This occurred today. Event was not witnessed. The patient felt faint. The patient had preceding symptoms of light-headedness and nausea. Had a single episode. No injuries noted. He currently has weakness. Currently has nausea and headache. Similar symptoms previously: Many times. Recent medical care: The patient was seen recently by a health care provider (D/C'd from here yesterday for the same.). REVIEW OF SYSTEMS The patient has had a headache, dizziness and vomiting. No weakness, chest pain, palpitations, abdominal pain or diarrhea. All systems otherwise negative, except as recorded above. PAST HISTORY ( Syncope. Rhabdomyolysis. Dehydration. Renal Insufficiency. Hypokalemia. Abdominal Pain. Pancreatitis. Gastroesophageal Reflux Disease. Sprain. Hypertension. ADDITIONAL SURGERIES: Ankle rt, hardware. Right hand surgery). SOCIAL HISTORY Never smoker. History of drug use: marijuana. ADDITIONAL NOTES The nursing notes have been reviewed. PHYSICAL EXAM Vital Signs: 09/27/2016 16:08 BP: 152/95. HR: 78. RR: 18. O2 saturation: 97%. Temp: 98.4 F. Have been reviewed. Hypertensive. Heart rate normal. Respiratory rate normal. Temperature normal. Oxygen saturation normal. Appearance: Alert. No acute distress. Eyes: Pupils equal, round and reactive to light. No nystagmus. Extraocular movements normal. ENT: Normal ENT inspection. Moist mucous membranes. CVS: Normal heart rate and rhythm. Heart sounds normal. Respiratory: No respiratory distress. Breath sounds normal. Abdomen: Soft and nontender. No organomegaly. The bowel sounds are not abnormal. Skin: Skin warm and dry. Normal skin color. Extremities: No lower extremity edema. Neuro: Alert. Oriented X 3. Cranial nerves normal (as tested). No cerebellar findings. LABS, X-RAYS, AND EKG Laboratory Tests: UA-Culture if indicated: (JOLIE: 09/27/2016 17:40) ( [facility] [place] 09/27/2016 18:11) Final results Test Result Flag Units (Reference) URINE COLOR YELLOW URINE APPEARANCE CLEAR URINE GLUCOSE NEGATIVE (NEGATIVE) URINE BILIRUBIN NEGATIVE (NEGATIVE) URINE KETONE NEGATIVE (NEGATIVE) URINE SPECIFIC GRAVITY 1.010 (1.010-1.030) URINE PH 6.5 (5.0-8.0) URINE PROTEIN NEGATIVE (NEGATIVE) URINE UROBILINOGEN 0.2 EU/dL (0.2-1.0) URINE NITRITE NEGATIVE (NEGATIVE) URINE BLOOD TRACE-INTACT (NEGATIVE) URINE LEUK ESTERASE NEGATIVE (NEGATIVE) URINE RBC 0-1 rbc/hpf (0-1) URINE WBC RARE wbc/hpf (0-1) URINE EPITHELIAL CELLS RARE EPI/hpf (0-5) URINE BACTERIA NONE SEEN (NONE SEEN) URINE COMMENT CULT NOT INDICATED URINE CULTURES ARE SET-UP BASED ON THE FOLLOWING CRITERIA:POSITIVE NITRITEPOSITIVE LEUKOCYTE ESTERASEGREATER THAN 10 WHITE BLOOD CELLSMODERATE (2+) OR GREATER BACTERIA CBC w Diff: (JOLIE: 09/27/2016 16:15) ( [facility] [place] 09/27/2016 17:24) Final results Test Result Flag Units (Reference) WHITE BLOOD COUNT 5.7 # K/uL (4.5-11.5) RED BLOOD COUNT 4.52 M/uL (4.50-5.90) HEMOGLOBIN 12.8 L gm/dL (13.5-17.5) HEMATOCRIT 38.3 L % (41.0-53.0) MEAN CELL VOLUME 85 fL (80-100) MEAN CORPUSCULAR HGB 28 pg (26-34) MEAN CORPUSCULAR HGB CONC 34 g/dL (31-37) RED CELL DISTRIBUTION WIDTH 13.4 % (11.6-14.8) PLATELET COUNT 184 K/uL (150-400) NEUTROPHIL % 67.6 % (50-75) LYMPH % 25.2 % (25-40) MONO % 5.0 % (3-14) EOSINOPHIL % 1.9 % (0-4) BASOPHIL % 0.3 % (0-2) Urine Drug Screen: (JOLIE: 09/27/2016 17:40) ( MsgRcvd 09/27/2016 17:57) Final results Test Result Flag Units (Reference) AMPHETAMINE/METHAMPHETAMINE NEGATIVE (NEGATIVE) BARBITURATE NEGATIVE (NEGATIVE) BENZODIAZEPINE NEGATIVE (NEGATIVE) CANNABINOID POSITIVE H (NEGATIVE) COCAINE NEGATIVE (NEGATIVE) ECSTASY NEGATIVE (NEGATIVE) METHADONE NEGATIVE (NEGATIVE) OPIATE NEGATIVE (NEGATIVE) The urine drug screen is a qualitative screening test fordrug overdose and abuse. All screen results should beconsidered as presumptive.Drugs screened for are as follows:BenzodiazepinesCocaineAmphetamines/MetamphetaminesTHC (Tetrahydrocannabinol)OpiatesBarbituratesEcstasyMethadonePositive results are unconfirmed. For confirmation, notifythe lab for the specimen to be sent to the reference lab.All confirmations must be performed by a differentmethodology.The ingestion of natural herbal and plant productscontaining Ephedra/Ephedra metabolites can produce in urineone or more substances capable of cross reacting withamphetamine/methamphetamine immunoassays. These testsprovide a preliminary result only. A more specificalternative chemical method must be used to obtain aconfirmed analytical result. CMP: (JOLIE: 09/27/2016 16:15) ( MsgRcvd 09/27/2016 17:51) Final results Test Result Flag Units (Reference) GLUCOSE 108 mg/dL (70-110) BUN 9 # mg/dL (7-18) CREATININE 1.3 mg/dL (0.6-1.3) Estimated GFR >60 mL/min Estimated GFR- >60 mL/min Note: Persistent reduction over 3 months in eGFR<60 mL/min/1.73 m2 defines CKD. Patients with eGFR values>=60 mL/min/1.73 m2 may also have CKD if evidence ofpersistent proteinuria. Additional information may be foundat www.kidney.org. SODIUM 141 mmol/L (136-145) POTASSIUM 3.3 L mmol/L (3.5-5.1) CHLORIDE 105 mmol/L (98-107) CARBON DIOXIDE 29 mmol/L (21-32) CALCIUM 9.3 mg/dL (8.5-10.1) TOTAL PROTEIN 7.4 g/dL (6.4-8.2) ALBUMIN 3.7 g/dL (3.3-5.0) BILIRUBIN, TOTAL 0.6 mg/dL (0.0-1.0) ALKALINE PHOSPHATASE 73 U/L (46-116) AST (SGOT) 32 U/L (15-37) ALT (SGPT) 73 U/L (12-78) LIPASE 123 U/L (73-393) AMYLASE 59 U/L (25-115) CPK 772 H U/L (24-260) CK-MB 4.2 H ng/mL (0.5-3.2) %CKMB 0.5 % (0.0-4.0) . PROGRESS AND PROCEDURES Course of Care: Reviewed labs and compared to D/C labs, renal fxn has normalized and CPK is down even further. 09/27/2016 19:06 BP: 137/71. Vital Signs: have been reviewed. Blood pressure normal. Disposition: Discharged home in good and improved condition. Condition: good. CLINICAL IMPRESSION Mild nausea with vomiting. INSTRUCTIONS Prescription Medications: Zofran (orally disintegrating tablets) 4 mg: take 1 orally every 6 hours as needed for nausea and vomiting Zantac 150 mg: take 1 orally every 12 hours. Dispense sixty (60). No refills. Substitution is permissible. Follow-up: Follow up with your doctor in about three days. Call for an appointment. Blood pressure screening was not performed during this visit because the patient has an active diagnosis of hypertension. (Electronically signed by Mat Hahn Dr. 09/30/2016 9:20) Ahmet gil BRISEYDA MARIA LUISA Horowitz VisitID: [id number] Date: 09/27/2016 09/29/2016 13:27 Pharmacy called requesting Rx clarification; Dispense #10 of the Zofran per Dr [place]. (Electronically signed by Catie Taveras - 09/29/2016 13:27)
--- NOTE | 2016-09-27 19:59 | ED NURSING NOTES ---
Clinical Report - Nurses [facility] [address] [place] [address] 09/27/2016 15:53 Patient: MARIA LUISA RAIN TRIAGE Triage time 1609Sep 27 2016. Acuity: LEVEL 3. Chief Complaint: ABDOMINAL PAIN, NAUSEA and VOMITING and (chest pain and headache). TORIE COMA SCORE: [place] Coma Scale: 15- eyes open spontaneously (4); best verbal response- oriented x 4 (5); best motor response- obeys commands (6). --16:26 Ethan Sterling R.N. 16:08 09/27/16. BP: 152/95. HR: 78. RR: 18. O2 saturation: 97%. Temp: 98.4 F. Pain level now 8/10. --16:26 Ethan Sterling R.N. Weight: 132.9 kg stated. Height/Length: 76 inches Per Patient. BMI: 35.7. --16:23 Ethan Sterling R.N. Medications Hydrochlorothiazide Oral. Lisinopril Oral. --16:22 Ethan Sterling R.N. TraMADol HCl Oral. --16:22 Ethan Sterling R.N. Allergies Sudafed.(vomiting) --16:22 Ethan Sterling R.N. History Arrived by private vehicle. This started just prior to arrival. ( States was in hospital and discharged home. When he got home he began to throw up and has been having severe heartburn chest pains and nausea. Pt states feels real foggy headed.). He has had fever, nausea, vomiting and abdominal pain. No diarrhea or constipation. Last oral intake by patient was breakfast (clear). 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 PAST MEDICAL HX: Immunizations: up-to-date. SOCIAL HX: Never smoker. No alcohol use or drug use. No recent travel. No known contact with a sick individual. SELF HARM ASSESSMENT: A self harm assessment was performed. The patient answered "no" to the question "Have you recently felt down, depressed, or hopeless?" and "Do you have thoughts of harming or killing yourself?". FALL RISK ASSESSMENT: Fall risk assessment completed. No fall risk identified. NUTRITIONAL RISK ASSESSMENT: The nutritional risk assessment revealed no deficiencies. FUNCTIONAL ASSESSMENT: Functional assessment: no impairments noted. LEARNING NEEDS ASSESSMENT: The learning needs assessment revealed no barriers. ABUSE ASSESSMENT: Abuse assessment: (yes) The patient was asked "Do you feel safe in your home?". SKIN INTEGRITY ASSESSMENT: Skin integrity risk assessment completed. No skin integrity risk identified. --16:26 Ethan Sterling R.N. PROBLEMS: Syncope. Rhabdomyolysis. Dehydration. Renal Insufficiency. Hypokalemia. Abdominal Pain. Pancreatitis. Gastroesophageal Reflux Disease. Sprain. Hypertension. --16:23 Ethan Sterling R.N. ADDITIONAL SURGERIES: Ankle rt, hardware. Right hand surgery. --16:23 Ethan Sterling R.N. Interventions ID band on patient. --16: Ethan Sterling R.N. PHYSICAL ASSESSMENT To room via stretcher. GENERAL / NEURO / PSYCH: Alert. Oriented X 4. Appears anxious and in distress. HEENT: Mucous membranes are pink. RESPIRATORY: Respirations not labored. Breath sounds within normal limits. CVS: Normal sinus rhythm noted. Capillary refill less than 2 seconds. GI / : The patient has had nausea. Emesis noted. Abdomen soft. Bowel sounds within normal limits. Normal genitalia. SKIN: Skin is warm and dry. --16:27 Ethan Sterling R.N. NURSING PROGRESS NOTES The initial plan of care for this patient includes an assessment with efforts to address patient positioning, appropriate ambient lighting and comfortable environmental temperature; impairment of the neurological system. front desk monitor, pulse oximeter and NIBP monitor placed on patient. Patient gowned. Head of bed elevated 60 degrees. Reassurance given. Call light placed in reach. Side rails up x 1. Bed placed in lowest position. Brakes of bed on. --16:27 Ethan Sterling R.N. 16:12 09/27/2016 Site #1 started via IV in the right antecubital space with an 18g angiocath, with aseptic technique and good blood return; one attempt. Blood drawn: rainbow set. Labeled in the presence of the patient and sent to the lab. Saline lock flushed with 10 mL saline. --16:27 Ethan Sterling R.N. 16:17 09/27/2016 Started bag #1 1000 mL IV Fluids IV NS (Saline); at 1000 mL/hr over 1 hour(s) via site #1 via dial-a-flow. Allergies verified and confirmed 5 rights. IV patency established. IV site checked: no pain, redness, or swelling. IV flushed thoroughly pre- and post-medication administration. --16:42 Ethan Sterling R.N. 16:17 09/27/2016 Zofran (Ondansetron HCl) IVP 4 mg given over 2 minute(s) via site #1. Allergies verified and confirmed 5 rights. IV patency established. IV site checked: no pain, redness, or swelling. IV flushed thoroughly pre- and post-medication administration. --16:43 Ethan Sterling R.N. EKG time: (1606). EKG was ordered, performed by a nurse and shown to the ED physician. --16:43 Yessica Hennessy 16:46 09/27/2016 Acetaminophen (APAP) PO Tablets 1000 mg given. Allergies verified and confirmed 5 rights. --16:46 Ethan Sterling R.N. 16:46 09/27/2016 IV Fluids IV NS Discontinued: bag #1 infused. Total amount infused: 1000 mL. IV patency established. IV site checked: no pain, redness, or swelling. IV flushed thoroughly. --16:46 Ethan Sterling R.N. 19:00 09/27/2016 Potassium Chloride (Potassium Chloride ER) PO Capsules 20 meq given. Allergies verified and confirmed 5 rights. --19:00 Ethan Sterling R.N. 19:15 09/27/2016 Famotidine PO Tablets 40 mg given. Allergies verified and confirmed 5 rights. --19:15 Ethan Sterling R.N. 19:15 09/27/16. BP: 121/56. HR: 91. RR: 18. O2 saturation: 98%. Pain level now 6/10. --19:16 Hallie, Ethan, R.N. Care transferred and report received (received report from Ethan Bhatt, assumed care of pt). --19:20 Yocasta Langley R.N. DISPOSITION / DISCHARGE 20:05 09/27/16. BP: 130/63. HR: 87. RR: 20. O2 saturation: 100% on room air. Temp: 98.9 F (oral). Pain level now: 0/10. --23:56 Cielo Holt 20:00 09/27/2016 Site #1 removed upon discharge. Catheter intact. Bandaid applied. --23:57 Cielo Holt 20:05 09/27/16. Condition at departure: stable. The goals identified in the patient's plan of care were met. No learning barriers present. Discharge instructions provided and reviewed with the patient. Reviewed medication(s) side effects, precautions, dosing and course information. Prescription(s) given to the patient. Reviewed need for increased fluid intake. Patient verbalized understanding. Written instructions provided in Latvian. ( Follow up with your PCP in three days. Take small sips of fluid until feeling better. Rest and eat a bland diet until feeling better. Discussed reasons to return to the Emergency Department. Patent verbalized understanding and had no additional questions at this time.). The patient was discharged by the physician. He was discharged home and unaccompanied at time of discharge. He left the Emergency Department ambulatory and via taxi. Driving (taxi). FALL RISK ASSESSMENT: Fall risk assessment completed. No fall risk identified. --23:56 Cielo Holt. Locked/Released at 09/28/2016 0:43 by Cielo Holt,
--- NOTE | 2016-09-27 19:59 | ED NURSING NOTES ---
Clinical Report - Nurses [facility] [address] [place] [address] 09/27/2016 15:53 Patient: MARIA LUISA RAIN TRIAGE Triage time 1609Sep 27 2016. Acuity: LEVEL 3. Chief Complaint: ABDOMINAL PAIN, NAUSEA and VOMITING and (chest pain and headache). TORIE COMA SCORE: [place] Coma Scale: 15- eyes open spontaneously (4); best verbal response- oriented x 4 (5); best motor response- obeys commands (6). --16:26 Ethan Sterling R.N. 16:08 09/27/16. BP: 152/95. HR: 78. RR: 18. O2 saturation: 97%. Temp: 98.4 F. Pain level now 8/10. --16:26 Ethan Sterling R.N. Weight: 132.9 kg stated. Height/Length: 76 inches Per Patient. BMI: 35.7. --16:23 Ethan Sterling R.N. Medications Hydrochlorothiazide Oral. Lisinopril Oral. --16:22 Ethan Sterling R.N. TraMADol HCl Oral. --16:22 Ethan Sterling R.N. Allergies Sudafed.(vomiting) --16:22 Ethan Sterling R.N. History Arrived by private vehicle. This started just prior to arrival. ( States was in hospital and discharged home. When he got home he began to throw up and has been having severe heartburn chest pains and nausea. Pt states feels real foggy headed.). He has had fever, nausea, vomiting and abdominal pain. No diarrhea or constipation. Last oral intake by patient was breakfast (clear). 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 PAST MEDICAL HX: Immunizations: up-to-date. SOCIAL HX: Never smoker. No alcohol use or drug use. No recent travel. No known contact with a sick individual. SELF HARM ASSESSMENT: A self harm assessment was performed. The patient answered "no" to the question "Have you recently felt down, depressed, or hopeless?" and "Do you have thoughts of harming or killing yourself?". FALL RISK ASSESSMENT: Fall risk assessment completed. No fall risk identified. NUTRITIONAL RISK ASSESSMENT: The nutritional risk assessment revealed no deficiencies. FUNCTIONAL ASSESSMENT: Functional assessment: no impairments noted. LEARNING NEEDS ASSESSMENT: The learning needs assessment revealed no barriers. ABUSE ASSESSMENT: Abuse assessment: (yes) The patient was asked "Do you feel safe in your home?". SKIN INTEGRITY ASSESSMENT: Skin integrity risk assessment completed. No skin integrity risk identified. --16:26 Ethan Sterling R.N. PROBLEMS: Syncope. Rhabdomyolysis. Dehydration. Renal Insufficiency. Hypokalemia. Abdominal Pain. Pancreatitis. Gastroesophageal Reflux Disease. Sprain. Hypertension. --16:23 Ethan Sterling R.N. ADDITIONAL SURGERIES: Ankle rt, hardware. Right hand surgery. --16:23 Ethan Sterling R.N. Interventions ID band on patient. --16: Ethan Sterling R.N. PHYSICAL ASSESSMENT To room via stretcher. GENERAL / NEURO / PSYCH: Alert. Oriented X 4. Appears anxious and in distress. HEENT: Mucous membranes are pink. RESPIRATORY: Respirations not labored. Breath sounds within normal limits. CVS: Normal sinus rhythm noted. Capillary refill less than 2 seconds. GI / : The patient has had nausea. Emesis noted. Abdomen soft. Bowel sounds within normal limits. Normal genitalia. SKIN: Skin is warm and dry. --16:27 Ethan Sterling R.N. NURSING PROGRESS NOTES The initial plan of care for this patient includes an assessment with efforts to address patient positioning, appropriate ambient lighting and comfortable environmental temperature; impairment of the neurological system. car cooper, pulse oximeter and NIBP monitor placed on patient. Patient gowned. Head of bed elevated 60 degrees. Reassurance given. Call light placed in reach. Side rails up x 1. Bed placed in lowest position. Brakes of bed on. --16:27 Ethan Sterling R.N. 16:12 09/27/2016 Site #1 started via IV in the right antecubital space with an 18g angiocath, with aseptic technique and good blood return; one attempt. Blood drawn: rainbow set. Labeled in the presence of the patient and sent to the lab. Saline lock flushed with 10 mL saline. --16:27 Ethan Sterling R.N. 16:17 09/27/2016 Started bag #1 1000 mL IV Fluids IV NS (Saline); at 1000 mL/hr over 1 hour(s) via site #1 via dial-a-flow. Allergies verified and confirmed 5 rights. IV patency established. IV site checked: no pain, redness, or swelling. IV flushed thoroughly pre- and post-medication administration. --16:42 Ethan Sterling R.N. 16:17 09/27/2016 Zofran (Ondansetron HCl) IVP 4 mg given over 2 minute(s) via site #1. Allergies verified and confirmed 5 rights. IV patency established. IV site checked: no pain, redness, or swelling. IV flushed thoroughly pre- and post-medication administration. --16:43 Ethan Sterling R.N. EKG time: (1606). EKG was ordered, performed by a nurse and shown to the ED physician. --16:43 Yessica Hennessy 16:46 09/27/2016 Acetaminophen (APAP) PO Tablets 1000 mg given. Allergies verified and confirmed 5 rights. --16:46 Ethan Sterling R.N. 16:46 09/27/2016 IV Fluids IV NS Discontinued: bag #1 infused. Total amount infused: 1000 mL. IV patency established. IV site checked: no pain, redness, or swelling. IV flushed thoroughly. --16:46 Ethan tSerling R.N. 19:00 09/27/2016 Potassium Chloride (Potassium Chloride ER) PO Capsules 20 meq given. Allergies verified and confirmed 5 rights. --19:00 Ethan Sterling R.N. 19:15 09/27/2016 Famotidine PO Tablets 40 mg given. Allergies verified and confirmed 5 rights. --19:15 Ethan Sterling R.N. 19:15 09/27/16. BP: 121/56. HR: 91. RR: 18. O2 saturation: 98%. Pain level now 6/10. --19:16 Hallie, Ethan, R.N. Care transferred and report received (received report from Ethan Bhatt, assumed care of pt). --19:20 Yocasta Langley R.N. DISPOSITION / DISCHARGE 20:05 09/27/16. BP: 130/63. HR: 87. RR: 20. O2 saturation: 100% on room air. Temp: 98.9 F (oral). Pain level now: 0/10. --23:56 Cielo Holt 20:00 09/27/2016 Site #1 removed upon discharge. Catheter intact. Bandaid applied. --23:57 Cielo Holt 20:05 09/27/16. Condition at departure: stable. The goals identified in the patient's plan of care were met. No learning barriers present. Discharge instructions provided and reviewed with the patient. Reviewed medication(s) side effects, precautions, dosing and course information. Prescription(s) given to the patient. Reviewed need for increased fluid intake. Patient verbalized understanding. Written instructions provided in [place]. ( Follow up with your PCP in three days. Take small sips of fluid until feeling better. Rest and eat a bland diet until feeling better. Discussed reasons to return to the Emergency Department. Patent verbalized understanding and had no additional questions at this time.). The patient was discharged by the physician. He was discharged home and unaccompanied at time of discharge. He left the Emergency Department ambulatory and via taxi. Driving (taxi). FALL RISK ASSESSMENT: Fall risk assessment completed. No fall risk identified. --23:56 Cielo Holt. Locked/Released at 09/28/2016 0:43 by Cielo Holt,
--- NOTE | 2016-09-30 09:21 | ED MED RECONCILIATION SUMMARY ---
Patient: MARIA LUISA RAIN Medication Reconciliation Report [facility] VisitID: [id number] [address] [place] [address] 46y, M Registration Date/Time: 09/27/2016 Weight: 132.9 kg Height/Length: 76 in. BMI: 35.7 ALLERGIES: Sudafed The patient's Home Medications are listed below: THE FOLLOWING MEDICATIONS NEED TO BE RECONCILED: Hydrochlorothiazide Oral Lisinopril Oral TraMADol HCl Oral The source(s) of the original Home Medication information: Not obtained. The following Medications were given to the patient in the Emergency Department: IV NS IV Fluids bolus 0, then 1000 mL/hr, administered: 09/27/2016 4:17:00 PM Zofran [IVP] IVP 4 mg, administered: 09/27/2016 4:17:00 PM Acetaminophen [PO] PO 1000 mg, administered: 09/27/2016 4:46:00 PM Potassium Chloride [PO] PO 20 meq, administered: 09/27/2016 7:00:00 PM Famotidine [PO] PO 40 mg, administered: 09/27/2016 7:15:00 PM The following Medications were prescribed to the patient: Zofran (orally disintegrating tablets) 4 mg: take 1 orally every 6 hours as needed for nausea and vomiting -- Mat Hahn Dr. Zantac 150 mg: take 1 orally every 12 hours. Dispense sixty (60). No refills. Substitution is permissible. -- Mat Hahn Dr.
--- NOTE | 2016-09-30 09:21 | ED DISCHARGE INSTRUCTIONS ---
Patient: MARIA LUISA RAIN General Instructions [facility] VisitID: [id number] [place] [address] 46y, M Registration Date/Time: 09/27/2016 Mild nausea with vomiting. INSTRUCTIONS Prescription Medications: Zofran (orally disintegrating tablets) 4 mg: take 1 orally every 6 hours as needed for nausea and vomiting Zantac 150 mg: take 1 orally every 12 hours. Dispense sixty (60). No refills. Substitution is permissible. Follow-up: Follow up with your doctor in about three days. Call for an appointment. Blood pressure screening was not performed during this visit because the patient has an active diagnosis of hypertension. ADDITIONAL INFORMATION Ranitidine Hydrochloride Oral tablet What is this medicine? RANITIDINE (ra PASHA haley) is a type of antihistamine that blocks the release of stomach acid. It is used to treat stomach or intestinal ulcers. It can relieve ulcer pain and discomfort, and the heartburn from acid reflux. How should I use this medicine? Take this medicine by mouth with a glass of water. Follow the directions on the prescription label. If you only take this medicine once a day, take it at bedtime. Take your medicine at regular intervals. Do not take your medicine more often than directed. Do not stop taking except on your doctor's advice. Talk to your manager program regarding the use of this medicine in children. Special care may be needed. What side effects may I notice from receiving this medicine? Side effects that you should report to your doctor or health district manager primary care sales as soon as possible: agitation, nervousness, depression, hallucinations allergic reactions like skin rash, itching or hives, swelling of the face, lips, or tongue breast enlargement in both males and females breathing problems redness, blistering, peeling or loosening of the skin, including inside the mouth unusual bleeding or bruising unusually weak or tired vomiting yellowing of the skin or eyes Side effects that usually do not require medical attention (report to your doctor or health district manager primary care sales if they continue or are bothersome): constipation or diarrhea dizziness headache nausea What may interact with this medicine? atazanavir delavirdine gefitinib glipizide ketoconazole midazolam procainamide propantheline triazolam warfarin What if I miss a dose? If you miss a dose, take it as soon as you can. If it is almost time for your next dose, take only that dose. Do not take double or extra doses. Where should I keep my medicine? Keep out of the reach of children. Store at room temperature between 15 and 30 degrees C (59 and 86 degrees F). Protect from light and moisture. Keep container tightly closed. Throw away any unused medicine after the expiration date. What should I tell my health care provider before I take this medicine? They need to know if you have any of these conditions: kidney disease liver disease porphyria an unusual or allergic reaction to ranitidine, other medicines, foods, dyes, or preservatives or trying to get breast-feeding What should I watch for while using this medicine? Tell your doctor or health district manager primary care sales if your condition does not start to get better or gets worse. You may need to take this medicine for several days as prescribed before your symptoms get better. Finish the full course of tablets prescribed, even if you feel better. Do not smoke cigarettes or drink alcohol. These increase irritation in your stomach and can lengthen the time it will take for ulcers to heal. Cigarettes and alcohol can also make acid reflux or heartburn worse. If you get black, tarry stools or vomit up what looks like coffee grounds, call your doctor or health district manager primary care sales at once. You may have a bleeding ulcer. You have been given the following additional information: Ranitidine Hydrochloride Oral tablet (Electronically signed by Mat Hahn Dr. 09/30/2016 9:20)
--- NOTE | 2016-09-30 09:21 | ED MED RECONCILIATION SUMMARY ---
Patient: MARIA LUISA RAIN Medication Reconciliation Report [facility] VisitID: [id number] [address] [place] [address] 46y, M Registration Date/Time: 09/27/2016 Weight: 132.9 kg Height/Length: 76 in. BMI: 35.7 ALLERGIES: Sudafed The patient's Home Medications are listed below: THE FOLLOWING MEDICATIONS NEED TO BE RECONCILED: Hydrochlorothiazide Oral Lisinopril Oral TraMADol HCl Oral The source(s) of the original Home Medication information: Not obtained. The following Medications were given to the patient in the Emergency Department: IV NS IV Fluids bolus 0, then 1000 mL/hr, administered: 09/27/2016 4:17:00 PM Zofran [IVP] IVP 4 mg, administered: 09/27/2016 4:17:00 PM Acetaminophen [PO] PO 1000 mg, administered: 09/27/2016 4:46:00 PM Potassium Chloride [PO] PO 20 meq, administered: 09/27/2016 7:00:00 PM Famotidine [PO] PO 40 mg, administered: 09/27/2016 7:15:00 PM The following Medications were prescribed to the patient: Zofran (orally disintegrating tablets) 4 mg: take 1 orally every 6 hours as needed for nausea and vomiting -- Mat Hahn Dr. Zantac 150 mg: take 1 orally every 12 hours. Dispense sixty (60). No refills. Substitution is permissible. -- Mat Hahn Dr.
--- NOTE | 2016-09-30 09:21 | ED MAR SUMMARY ---
..... Medication Administration Record [address] [place] [address] Patient: MARIA LUISA RAIN Visit ID: [id number] 46y, M Weight: 132.9 kg Height/Length: 76 in BMI: 35.7 ALLERGIES: Sudafed Start 16:17 09/27/2016 Ethan Sterling R.N., Stop 16:46 09/27/2016 Ethan Sterling R.N. Medication Administered: IV NS (SALINE), Dose: IV Fluids over 1 hour(s), Rate: 1000 mL/hr, Dispensed: 1000 mL bag, Site: #1 right AC. Medication Ordered: IV NS : initial bolus none -, then 1000 mL/hr for X1 (NOW). Given 16:17 09/27/2016 Ethan Sterling R.N. Medication Administered: ZOFRAN [IVP] (ONDANSETRON HCL), Dose: 4 mg IVP over 2 minute(s), Site: #1 right AC. Medication Ordered: Zofran IV 4 mg (NOW). Given 16:46 09/27/2016 Ethan Sterling R.N. Medication Administered: ACETAMINOPHEN [PO] (APAP), Dose: 1000 mg Tablets PO. Medication Ordered: Acetaminophen PO 1,000 mg (NOW). Given 19:00 09/27/2016 Ethan Sterling R.N. Medication Administered: POTASSIUM CHLORIDE [PO] (POTASSIUM CHLORIDE ER), Dose: 20 meq Capsules PO. Medication Ordered: Potassium Chloride PO 20 meq (NOW). Given 19:15 09/27/2016 Ethan Sterling R.N. Medication Administered: FAMOTIDINE [PO], Dose: 40 mg Tablets PO. Medication Ordered: Famotidine PO 40 mg (NOW).
--- NOTE | 2016-09-30 09:21 | ED DISCHARGE INSTRUCTIONS ---
Patient: MARIA LUISA RAIN General Instructions [facility] VisitID: [id number] [place] [address] 46y, M Registration Date/Time: 09/27/2016 Mild nausea with vomiting. INSTRUCTIONS Prescription Medications: Zofran (orally disintegrating tablets) 4 mg: take 1 orally every 6 hours as needed for nausea and vomiting Zantac 150 mg: take 1 orally every 12 hours. Dispense sixty (60). No refills. Substitution is permissible. Follow-up: Follow up with your doctor in about three days. Call for an appointment. Blood pressure screening was not performed during this visit because the patient has an active diagnosis of hypertension. ADDITIONAL INFORMATION Ranitidine Hydrochloride Oral tablet What is this medicine? RANITIDINE (ra PASHA haley) is a type of antihistamine that blocks the release of stomach acid. It is used to treat stomach or intestinal ulcers. It can relieve ulcer pain and discomfort, and the heartburn from acid reflux. How should I use this medicine? Take this medicine by mouth with a glass of water. Follow the directions on the prescription label. If you only take this medicine once a day, take it at bedtime. Take your medicine at regular intervals. Do not take your medicine more often than directed. Do not stop taking except on your doctor's advice. Talk to your production team leader regarding the use of this medicine in children. Special care may be needed. What side effects may I notice from receiving this medicine? Side effects that you should report to your doctor or health health care technician as soon as possible: agitation, nervousness, depression, hallucinations allergic reactions like skin rash, itching or hives, swelling of the face, lips, or tongue breast enlargement in both males and females breathing problems redness, blistering, peeling or loosening of the skin, including inside the mouth unusual bleeding or bruising unusually weak or tired vomiting yellowing of the skin or eyes Side effects that usually do not require medical attention (report to your doctor or health health care technician if they continue or are bothersome): constipation or diarrhea dizziness headache nausea What may interact with this medicine? atazanavir delavirdine gefitinib glipizide ketoconazole midazolam procainamide propantheline triazolam warfarin What if I miss a dose? If you miss a dose, take it as soon as you can. If it is almost time for your next dose, take only that dose. Do not take double or extra doses. Where should I keep my medicine? Keep out of the reach of children. Store at room temperature between 15 and 30 degrees C (59 and 86 degrees F). Protect from light and moisture. Keep container tightly closed. Throw away any unused medicine after the expiration date. What should I tell my health care provider before I take this medicine? They need to know if you have any of these conditions: kidney disease liver disease porphyria an unusual or allergic reaction to ranitidine, other medicines, foods, dyes, or preservatives or trying to get breast-feeding What should I watch for while using this medicine? Tell your doctor or health health care technician if your condition does not start to get better or gets worse. You may need to take this medicine for several days as prescribed before your symptoms get better. Finish the full course of tablets prescribed, even if you feel better. Do not smoke cigarettes or drink alcohol. These increase irritation in your stomach and can lengthen the time it will take for ulcers to heal. Cigarettes and alcohol can also make acid reflux or heartburn worse. If you get black, tarry stools or vomit up what looks like coffee grounds, call your doctor or health health care technician at once. You may have a bleeding ulcer. You have been given the following additional information: Ranitidine Hydrochloride Oral tablet (Electronically signed by Mat Hahn Dr. 09/30/2016 9:20)
--- NOTE | 2016-09-30 09:21 | ED MAR SUMMARY ---
..... Medication Administration Record Merged With [facility] [address] [place] [address] Patient: MARIA LUISA RAIN Visit ID: [id number] 46y, M Weight: 132.9 kg Height/Length: 76 in BMI: 35.7 ALLERGIES: Sudafed Start 16:17 09/27/2016 Ethan Sterling R.N., Stop 16:46 09/27/2016 Ethan Sterling R.N. Medication Administered: IV NS (SALINE), Dose: IV Fluids over 1 hour(s), Rate: 1000 mL/hr, Dispensed: 1000 mL bag, Site: #1 right AC. Medication Ordered: IV NS : initial bolus none -, then 1000 mL/hr for X1 (NOW). Given 16:17 09/27/2016 Ethan Sterling R.N. Medication Administered: ZOFRAN [IVP] (ONDANSETRON HCL), Dose: 4 mg IVP over 2 minute(s), Site: #1 right AC. Medication Ordered: Zofran IV 4 mg (NOW). Given 16:46 09/27/2016 Ethan Sterling R.N. Medication Administered: ACETAMINOPHEN [PO] (APAP), Dose: 1000 mg Tablets PO. Medication Ordered: Acetaminophen PO 1,000 mg (NOW). Given 19:00 09/27/2016 Ethan Sterling R.N. Medication Administered: POTASSIUM CHLORIDE [PO] (POTASSIUM CHLORIDE ER), Dose: 20 meq Capsules PO. Medication Ordered: Potassium Chloride PO 20 meq (NOW). Given 19:15 09/27/2016 Ethan Sterling R.N. Medication Administered: FAMOTIDINE [PO], Dose: 40 mg Tablets PO. Medication Ordered: Famotidine PO 40 mg (NOW).
== END 2016-09-27 20:05 | disposition home or self-care (01) ==
LOC: ED SRH 15:52
DX: R11.2 Nausea with vomiting, unspecified (principal); R55 Syncope and collapse; I10 Essential (primary) hypertension; K21.9 Gastro-esophageal reflux disease without esophagitis
CPT/HCPCS: 90004; 90100; 90617; 92235; 92530; 92610; 92760; 92761; 92762; 92763; 92764; 92765; 92766; 92767; 95059